=== PATIENT | female | born 1950 | race African-American/Black ===

== ENCOUNTER 2016-10-05 18:58 | Inpatient (IN) | payer OTHER ==
[2016-10-05 19:37] VITALS: BMI 32.5
[2016-10-05] MEDS ORDERED: SODIUM CHLORIDE 1,000 ML IV STA (19:55)
[2016-10-05] MEDS ORDERED: ONDANSETRON 4 MG/2 ML VIAL IVPUSH ONE (19:56)
[2016-10-05] MEDS ORDERED: FAMOTIDINE 20 MG/50 ML IVPB 50 ML IVPB ONE ×2 (19:56→20:23)
--- NOTE | 2016-10-05 19:59 | PDOC ---
History of Present Illness <Tristian Diaz - Last Filed: 10/05/16 20:28> - General History Source: Patient, Old Records - History of Present Illness Initial Comments: 10/05/16 20:27 The patient is a 66 year old female with past medical history of HTN s/p cardiac stents, HLD, COPD, GERD, colitis, hypothyroidism and borderline diabetes , who presents to the emergency department with belching, diarrhea, vomiting, and abdominal pain since wednesday. The patient states that she was cleaning the house when she began to feel nauseous and having episodes of vomiting and diarrhea. The patient reports that her vomiting resolved yesterday but she then began to experience right upper quadrant pain. The patient denies bloody stool and sick contacts. <Florian Muir - Last Filed: 10/06/16 00:00> - General Chief Complaint: Vomiting/Diarrhea Stated Complaint: PCP SENT/ADMIT/COLITIS Time Seen by Provider: 10/05/16 19:46 Past History - Past Medical History Anemia: Yes (ON B12 INJECTIONS) Asthma: Yes Cancer: No Cardiac Disorders: Yes (ANEURYSM) CVA: No COPD: Yes CHF: No Dementia: No Diabetes: Yes (borderline diabetic) GI Disorders: Yes (GERD,COLITIS) Disorders: No HTN: Yes Hypercholesterolemia: Yes Liver Disease: No Seizures: No Thyroid Disease: Yes (HYPOTHYROIDISM-HAD BEEN ON SYNTHROID, OFF "FOR A COUPLE OF YEARS") - Surgical History Abdominal Surgery: Yes (pancreatic biopsy 2011) Appendectomy: Yes (1984) Cardiac Surgery: Yes (2008) Cholecystectomy: No Lung Surgery: No Neurologic Surgery: No Orthopedic Surgery: Yes (left makoplasty knee replacement 2013."general foot surgery") - Family Disease History Family Disease History: Diabetes: Mother, Heart Disease: Father - Psycho/Social/Smoking Cessation Hx Anxiety: No Suicidal Ideation: No Smoking Status: No Smoking History: Never smoked Have you smoked in the past 12 months: No Number of Cigarettes Smoked Daily: 0 If you are a former smoker, when did you quit?: 2008 Information on smoking cessation initiated: No Hx Alcohol Use: No Drug/Substance Use Hx: No Substance Use Type: None Hx Substance Use Treatment: No <Tristian Diaz - Last Filed: 10/05/16 20:28> <Florian Muir - Last Filed: 10/06/16 00:00> - Past Medical History Allergies/Adverse Reactions: Allergies Allergy/AdvReac Type Severity Reaction Status Date / Time No Known Drug Allergies Allergy Verified 10/05/16 19:34 FRAGRANCES Allergy Severe RESPIRATORY Uncoded 10/05/16 19:34 DISTRESS Home Medications: Ambulatory Orders Famotidine [Pepcid] 40 mg PO BID 10/05/14 Paroxetine HCl 20 mg PO HS 10/05/14 Ranolazine [Ranexa] 500 mg PO BID 10/05/14 Rosuvastatin Calcium [Crestor] 5 mg PO HS 10/05/14 Tiotropium [place] [Spiriva] 1 inh PO DAILY PRN 10/05/14 Cyanocobalamin Vit B-12 Inj. [Vitamin B12 Injection -] 1,000 mcg IM WEEKLY 06/27 Diltiazem HCl [Diltiazem 24Hr Cd] 240 mg PO DAILY 06/27/15 Ergocalciferol (Vitamin D2) [Vitamin D2] 50,000 unit PO WEEKLY 06/27/15 Psyllium Husk/Calcium Carb [Metamucil Plus Calcium Capsule] 1 each PO DAILY Quetiapine Fumarate [Seroquel -] 25 mg PO HS 06/27/15 Multivitamins [Multivit ([facility] Formulary)] 1 tab PO DAILY tab 03/11/16 Aspirin [ASA -] 81 mg PO DAILY #0 tab.chew 07/01/16 Pantoprazole Sodium [Protonix -] 40 mg PO BIDAC #40 tablet.ec 07/03/16 Oxycodone HCl [Roxicodone] 15 mg PO QID PRN 10/05/16 Review of Systems - Review of Systems Able to Perform ROS?: Yes Constitutional: Yes: Symptoms Reported, See HPI ABD/GI: Yes: Symptoms Reported, See HPI, Diarrhea, Nausea, Vomiting, Abdominal cramping, Other <Florian Muir - Last Filed: 10/06/16 00:00> *Physical Exam - Vital Signs Last Vital Signs Temp Pulse Resp BP Pulse Ox 98.0 F 94 H 14 119/81 96 10/05/16 19:34 10/05/16 19:34 10/05/16 19:34 10/05/16 19:34 10/05/16 19:34 - Physical Exam General Appearance: Yes: Nourished, Appropriately Dressed, Mild Distress ( ANXIOUS) HEENT: positive: Normal ENT Inspection Neck: positive: Supple Respiratory/Chest: positive: Lungs Clear, Normal Breath Sounds. negative: Chest Tender, Respiratory Distress Cardiovascular: positive: Regular Rhythm, Regular Rate Gastrointestinal/Abdominal: positive: Normal Bowel Sounds, Tender (MILD TNDERNESS RT HEMIABDOMEN NO G/R), Soft Musculoskeletal: positive: Normal Inspection. negative: CVA Tenderness Extremity: positive: Normal Capillary Refill Integumentary: positive: Normal Color Neurologic: positive: Fully Oriented, Alert, Normal Mood/Affect, Normal Response , Motor Strength 5/5, Other (ANXIOUS) <Tristian Diaz - Last Filed: 10/05/16 20:28> - Vital Signs Last Vital Signs Temp Pulse Resp BP Pulse Ox 98.0 F 94 H 14 119/81 96 10/05/16 19:34 10/05/16 19:34 10/05/16 19:34 10/05/16 19:34 10/05/16 19:34 <Florian Muir - Last Filed: 10/06/16 00:00> ED Treatment Course - LABORATORY CBC & Chemistry Diagram: 10/05/16 20:20 10/05/16 20:20 <Florian Muir - Last Filed: 10/06/16 00:00> Progress Note - Progress Note Progress Note: GASTROENTERITIS WILL D/W PMD SINCE HX OF COLITIS AND REPORTS THAT HE WANTED PT ADMITTED <Tristian Diaz - Last Filed: 10/05/16 20:28> Medical Decision Making - Medical Decision Making 10/05/16 20:20 Dr. Brien Lua was called. Case discussed. Agreed to admit to Dr. Kirk Parekh. <Florian Muir - Last Filed: 10/06/16 00:00> *DC/Admit/Observation/Transfer - Discharge Dispostion Admit: Yes <Tristian Diaz - Last Filed: 10/05/16 20:28> - Attestations Scribe Attestion: 10/05/16 20:36 Documentation prepared by Florian Muir, acting as director of medical education for Tristian Diaz MD. <Florian Muir - Last Filed: 10/06/16 00:00> Diagnosis at time of Disposition: Vomiting and diarrhea, Dehydration - Discharge Dispostion Condition at time of disposition: Stable
[2016-10-05] MEDS ORDERED: ONDANSETRON 4 MG/2 ML VIAL ONE (20:22)
[2016-10-05 20:33] LABS: BASOPHIL 0.7 % (0-2.0); EOSINOPHIL 1.4 % (0-4.5); MCH 29.6 pg (25.7-33.7); MCHC 31.9 g/dl (32.0-36.0); MEAN CELL VOLUME 92.5 fl (80-96); MEAN PLT VOLUME 8.2 fl (7.5-11.1); NEUTROPHILS 49.3 % (42.8-82.8); PLATELET COUNT 249 K/MM3 (134-434); RDW 13.8 % (11.6-15.6); WHITE BLOOD COUNT 7.7 K/mm3 (4.0-10.0)
[2016-10-05 20:54] LABS: CALCIUM 9.5 mg/dL (8.5-10.1)
[2016-10-06] MEDS: DEXTROSE 5%-0.45% SALINE 1,000 ML IV SCH ×2 (02:02→21:49)
[2016-10-06 08:08] LABS: BASOPHIL 0.3 % (0-2.0); EOSINOPHIL 2.9 % (0-4.5); MCH 30.3 pg (25.7-33.7); MCHC 32.9 g/dl (32.0-36.0); MEAN PLT VOLUME 8.4 fl (7.5-11.1); NEUTROPHILS 44.1 % (42.8-82.8); PLATELET COUNT 206 K/MM3 (134-434); RDW 13.5 % (11.6-15.6); WHITE BLOOD COUNT 7.3 K/mm3 (4.0-10.0)
[2016-10-06 08:44] LABS: ALBUMIN 3.3 g/dl (3.4-5.0); ALK PHOS 59 U/L (45-117); AMYLASE 32 U/L (25-115); ANION GAP 7 (8-16); BILIRUBIN,TOTAL 0.5 mg/dL (0.2-1.0); CALCIUM 8.8 mg/dL (8.5-10.1); CO2 26 mmol/L (21-32); CREATININE 0.9 mg/dL (0.55-1.02); GLUCOSE,RANDOM 98 mg/dL (74-106); SGOT/AST 10 U/L (15-37); SGPT/ALT 20 U/L (12-78); THYROID STIMULATING HORMONE 0.43 uIU/ml (0.358-3.74); TOT PROT 6.1 g/dl (6.4-8.2)
[2016-10-06] MEDS ORDERED: PT OWN MED DRAWER 7, Y5N ONE (09:12)
[2016-10-06] MEDS: PANTOPRAZOLE 40 MG TABLET (FP) PO SCH (09:13)
[2016-10-06] MEDS: BUDESONIDE/FORMETEROL FUMARATE 160/4.5 mcg INHALER IH SCH ×3 (09:14→21:45)
[2016-10-06] MEDS: HEPARIN NA (PORCINE) 5,000 UNITS/ML 1ML VIAL SQ SCH ×2 (10:06→21:39)
--- NOTE | 2016-10-06 13:28 | PN ---
Progress Note (short form) - Note Progress Note: consult dictated
[2016-10-06 15:05] LABS: URINE APPEARANCE CLEAR; URINE BILIRUBIN NEGATIVE (NEGATIVE); URINE BLOOD NEGATIVE (NEGATIVE); URINE COLOR LTYELLOW; URINE GLUCOSE (UA) NEGATIVE (NEGATIVE); URINE KETONE NEGATIVE (NEGATIVE); URINE LEUK ESTERASE NEGATIVE (NEGATIVE); URINE NITRITE NEGATIVE (NEGATIVE); URINE PROTEIN NEGATIVE (NEGATIVE); URINE UROBILINOGEN NEGATIVE E.U./dl (0.2-1.0)
--- NOTE | 2016-10-06 16:21 | CONS ---
DATE OF CONSULTATION: 10/06/2016 REQUESTING PHYSICIAN: Brien Copeland M.D. HISTORY OF PRESENT ILLNESS: Patient is a 66-year-old female admitted through [facility] emergency room for evaluation of nausea, vomiting, and diarrhea. States that the symptoms started Wednesday when she was at home cleaning. She had no nausea and vomiting. She had no vomiting yesterday, and there has been no reported diarrhea since her admission. She does complain of right sided abdominal pain. She is known by my colleague, Dr. Amy Lamas, who had seen her during admission in June of 2016 and then for followup in July of 2016. During her June hospitalization, she underwent upper endoscopy with Dr. Lamas revealing cobblestoned appearing mucosa, and the stomach biopsies revealed only chronic gastritis. As you recall, she had had a colonoscopy performed by at [facility] in September of 2014, and apparently the study was incomplete, as he cannot pass through a narrow proximal transverse colon. Area was tattooed, and she had a CT scan, and the biopsies failed to reveal malignancy. She did have 3 polyps removed this past July. Dr. Lamas did want her to undergo a colonoscopy to exclude a progressively obstructing lesion in the proximal transverse colon due to an ischemic stricture and to more definitively exclude malignancy. It appears as though she was scheduled to have this performed this past August; however, the patient states she never had it done, does not appear she called the office to arrange for followup after this. She says the reason why she did not have it performed is because she tore her right shoulder. She did not require surgical correction for this muscle tear. 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 PAST SURGICAL HISTORY: Includes appendectomy, hysterectomy due to fibroids, 4 surgeries since 1984. Vocal cord polyps have been removed. Tonsillectomy. Sinus surgery x3. Carpal tunnel release on the right wrist. Left knee arthroscopy. Right index finger tumor removed, which was benign. Ganglion cyst removed from the right hand 4 to 5 times. Ganglion cyst removed from the right foot and hammertoe correction of the right and left feet. Bunionectomy. She had pins and screws placed in her right ankle, and a mass removed from her right ankle in July of 2015. FAMILY HISTORY: Father had history of lung cancer, 1 sibling with obesity, 1 sibling with coronary artery disease, paternal uncle with leukemia, and mother with upper respiratory complications. MEDICATION: Prior to admission included Crestor, Pepcid, Spiriva, Ranexa, paroxetine, vitamine B12 injections weekly, vitamin D2, diltiazem, Seroquel, Metamucil, vitamin, aspirin 81 mg once daily, Protonix 40 mg daily, and Roxicodone. SOCIAL HISTORY: She is [place] speaking. She is single. She is a social security assessor general office dispatcher. Former smoker, quit in 2009. She drinks wine nightly. No history of intravenous drug abuse or illicit drugs. ALLERGIES: No known drug allergies. She does have allergy to certain perfumes. REVIEW OF SYSTEMS: She denies any current chest pain, shortness of breath. Nausea and vomiting have resolved. There has been no rectal bleeding, no melena. PHYSICAL EXAMINATION: General: The patient is found lying in her bed, she appeared to be in no apparent distress. Vital signs: She is afebrile. Pulse of 86, blood pressure 111/70. HEENT: Sclerae are anicteric. Neck: Supple. Cardiovascular: Heart regular rate and rhythm with a 2/6 systolic murmur heard best at the left sternal border. Lungs: Clear to auscultation bilaterally. Abdomen: Nondistended. Normoactive bowel sounds. She had healed vertical right lower quadrant and Pfannenstiel incisions. She did have mild tenderness to palpation on the right side of her abdomen. No hepatosplenomegaly was appreciated. No guarding was present. No rebound tenderness. Extremities: No lower extremity edema. LABORATORY EVALUATION: White blood count 7.3, hemoglobin 10.7, hematocrit 32.4, platelets of 206. Sodium 145, potassium 3.8, chloride 112, bicarbonate 26, BUN 9, creatinine 0.9. AST 10, ALT 20, alkaline phosphatase 59, total bilirubin 0.5 with an albumin of 3.3. Amylase 32, lipase 127, TSH 0.43. RADIOLOGY REPORTS: There has been no abdominal imaging performed. IMPRESSION: A 66-year-old female with resolved nausea, vomiting, and diarrhea. She does also have right sided abdominal pain now, given her history of suspected ischemia colitis. I have ordered a CT scan of the abdomen and pelvis with oral and intravenous contrast for further evaluation. Keep the patient on a clear liquid diet for now. Monitor labs, and other recommendations will be made based on the patient's clinical course. I thank you for this consultative opportunity. JOSE RODRÍGUEZ DO CD/[id number]
--- NOTE | 2016-10-06 18:16 | HP ---
Admitting History and Physical - Primary Care Physician PCP: Kirk Parekh - Admission Chief Complaint: ABDOMINAL PAIN/NAUSEA AND VOMITING History of Present Illness: 66 Y/O FEMALE WITH CAD S/P STENTS, DM, HTN, HYPOTHYROID, COLITIS HERE WITH NAUSEA AND VOMITING AND POOR APPETITE WITH GENERALIZED WEAKNESS. History Source: Patient Limitations to Obtaining History: No Limitations - Past Medical History Cardiovascular: Yes: Aneurysm, CAD (S/P STENTING LAST CATH 11/10 [facility]), HTN, Hyperlipdemia Pulmonary: Yes: Asthma, COPD, Sleep Apnea Psych: Yes: Depression Musculoskeletal: Yes: Osteoarthritis - Past Surgical History Past Surgical History: Yes: Joint Replacement, Tonsillectomy - Smoking History Smoking history: Never smoked Have you smoked in the past 12 months: No Aproximately how many cigarettes per day: 0 If you are a former smoker, when did you quit?: 2008 - Alcohol/Substance Use Hx Alcohol Use: No - Social History ADL: Independent History of Recent Travel: No Home Medications - Allergies Allergies/Adverse Reactions: Allergies Allergy/AdvReac Type Severity Reaction Status Date / Time No Known Drug Allergies Allergy Verified 10/05/16 19:34 FRAGRANCES Allergy Severe RESPIRATORY Uncoded 10/05/16 19:34 DISTRESS - Home Medications Home Medications: Ambulatory Orders Famotidine [Pepcid] 40 mg PO BID 10/05/14 Paroxetine HCl 20 mg PO HS 10/05/14 Ranolazine [Ranexa] 500 mg PO BID 10/05/14 Rosuvastatin Calcium [Crestor] 5 mg PO HS 10/05/14 Tiotropium [place] [Spiriva] 1 inh PO DAILY PRN 10/05/14 Cyanocobalamin Vit B-12 Inj. [Vitamin B12 Injection -] 1,000 mcg IM WEEKLY 06/27 Diltiazem HCl [Diltiazem 24Hr Cd] 240 mg PO DAILY 06/27/15 Ergocalciferol (Vitamin D2) [Vitamin D2] 50,000 unit PO WEEKLY 06/27/15 Psyllium Husk/Calcium Carb [Metamucil Plus Calcium Capsule] 1 each PO DAILY Quetiapine Fumarate [Seroquel -] 25 mg PO HS 06/27/15 Multivitamins [Multivit ([facility] Formulary)] 1 tab PO DAILY tab 03/11/16 Aspirin [ASA -] 81 mg PO DAILY #0 tab.chew 07/01/16 Pantoprazole Sodium [Protonix -] 40 mg PO BIDAC #40 tablet.ec 07/03/16 Oxycodone HCl [Roxicodone] 15 mg PO QID PRN 10/05/16 Review of Systems - Review of Systems Constitutional: reports: Loss of Appetite, Weakness Eyes: reports: No Symptoms HENT: reports: No Symptoms Neck: reports: No Symptoms Cardiovascular: reports: No Symptoms Respiratory: reports: No Symptoms Gastrointestinal: reports: Nausea Genitourinary: reports: No Symptoms Musculoskeletal: reports: Muscle Weakness Integumentary: reports: No Symptoms Neurological: reports: No Symptoms Endocrine: reports: No Symptoms Hematology/Lymphatic: reports: No Symptoms Physical Examination Vital Signs: Vital Signs Temperature 98.5 F 10/06/16 15:19 Pulse Rate 81 10/06/16 15:19 Respiratory Rate 18 10/06/16 15:19 Blood Pressure 167/54 10/06/16 15:19 O2 Sat by Pulse Oximetry (%) 98 10/06/16 09:00 Constitutional: Yes: Moderate Distress Eyes: Yes: WNL HENT: Yes: WNL Neck: Yes: WNL Cardiovascular: Yes: WNL Respiratory: Yes: WNL Gastrointestinal: Yes: Tenderness, Epigastrium Renal/: Yes: WNL Musculoskeletal: Yes: Muscle Weakness Extremities: Yes: WNL Edema: Yes Edema: LLE: Trace, RLE: Trace Peripheral Pulses WNL: Yes Integumentary: Yes: WNL Wound/Incision: Yes: Clean/Dry Neurological: Yes: Weakness ...Motor Strength: LLE, RLE Psychiatric: Yes: Agitated Labs: CBC, BMP 10/06/16 06:45 10/06/16 06:45 Imaging - Results Cat Scan: Pending Problem List - Problems (1) Dehydration Code(s): E86.0 - DEHYDRATION (2) Vomiting and diarrhea Code(s): R11.10 - VOMITING, UNSPECIFIED R19.7 - DIARRHEA, UNSPECIFIED (3) DM II (diabetes mellitus, type II), controlled Code(s): E11.9 - TYPE 2 DIABETES MELLITUS WITHOUT COMPLICATIONS Qualifiers: Diabetes mellitus complication detail: with neuropathic arthropathy (4) Depression Code(s): F32.9 - MAJOR DEPRESSIVE DISORDER, SINGLE EPISODE, UNSPECIFIED Qualifiers: Depression Type: reactive depression Qualified Code(s): F32.9 - Major depressive disorder, single episode, unspecified (5) Dyspepsia Code(s): R10.13 - EPIGASTRIC PAIN (6) GERD (gastroesophageal reflux disease) Code(s): K21.9 - GASTRO-ESOPHAGEAL REFLUX DISEASE WITHOUT ESOPHAGITIS Qualifiers: Esophagitis presence: without esophagitis Qualified Code(s): K21.9 - Gastro-esophageal reflux disease without esophagitis (7) HLD (hyperlipidemia) Code(s): E78.5 - HYPERLIPIDEMIA, UNSPECIFIED (8) HTN (hypertension) Code(s): I10 - ESSENTIAL (PRIMARY) HYPERTENSION Qualifiers: Hypertension type: essential hypertension Qualified Code(s): I10 - Essential (primary) hypertension (9) Hypothyroidism Code(s): E03.9 - HYPOTHYROIDISM, UNSPECIFIED Qualifiers: Hypothyroidism type: unspecified Qualified Code(s): E03.9 - Hypothyroidism, unspecified (10) Osteoarthritis of left knee Code(s): M17.9 - OSTEOARTHRITIS OF KNEE, UNSPECIFIED Assessment/Plan CT ABDOMEN PENDING GI EVAL APPETITE POOR WILL KEEP PATIENT ON LIQUID IV ZOFRAN IVF
[2016-10-06] MEDS ORDERED: QUEtiapine FUMARATE 25 MG TABLET (FP) PO SCH (22:00)
[2016-10-07 06:39] VITALS: BP 97/71; PULSE 73; TEMP 98.2
--- NOTE | 2016-10-07 08:47 | DS ---
Physical Examination Vital Signs: Vital Signs Temperature 98.2 F 10/07/16 06:37 Pulse Rate 73 10/07/16 06:37 Respiratory Rate 16 10/07/16 06:37 Blood Pressure 97/71 10/07/16 06:37 O2 Sat by Pulse Oximetry (%) 98 10/06/16 21:00 Findings/Remarks: IN BED FEELING BETTER, TOLERATED LIQUID DIET Constitutional: Yes: No Distress Eyes: Yes: WNL HENT: Yes: WNL Neck: Yes: WNL Cardiovascular: Yes: WNL Respiratory: Yes: WNL Gastrointestinal: Yes: Tenderness (MILD GENERALIZED TENDERNESS) Renal/: Yes: WNL Musculoskeletal: Yes: Muscle Weakness Extremities: Yes: WNL Edema: No Peripheral Pulses WNL: Yes Integumentary: Yes: WNL Wound/Incision: Yes: Clean/Dry Neurological: Yes: WNL ...Motor Strength: WNL Psychiatric: Yes: Agitated, Other (ANXIETY) Labs: CBC, BMP 10/06/16 06:45 10/06/16 06:45 Discharge Summary Reason For Visit: VOMITING AND DIARRHEA Current Active Problems Dehydration (Acute) Vomiting and diarrhea (Acute) Procedures: Principal: CT SCAN ABDOMEN Other Procedures: LABS/CX,IVF Hospital Course: ADMITTED FOR ACUTE ABDOMINAL PAIN, CT NORMAL LIKELY CASE OF COLITIS WITH IBS, F/ U OUTPATIENT Condition: Improved - Instructions Diet, Activity, Other Instructions: ADA/SOFT Disposition: [facility] - Home Medications Comprehensive Discharge Medication List: Ambulatory Orders Famotidine [Pepcid] 40 mg PO BID 10/05/14 Paroxetine HCl 20 mg PO HS 10/05/14 Ranolazine [Ranexa] 500 mg PO BID 10/05/14 Rosuvastatin Calcium [Crestor] 5 mg PO HS 10/05/14 Tiotropium [place] [Spiriva] 1 inh PO DAILY PRN 10/05/14 Cyanocobalamin Vit B-12 Inj. [Vitamin B12 Injection -] 1,000 mcg IM WEEKLY 06/27 Diltiazem HCl [Diltiazem 24Hr Cd] 240 mg PO DAILY 06/27/15 Ergocalciferol (Vitamin D2) [Vitamin D2] 50,000 unit PO WEEKLY 06/27/15 Psyllium Husk/Calcium Carb [Metamucil Plus Calcium Capsule] 1 each PO DAILY Quetiapine Fumarate [Seroquel -] 25 mg PO HS 06/27/15 Multivitamins [Multivit ([facility] Formulary)] 1 tab PO DAILY tab 03/11/16 Aspirin [ASA -] 81 mg PO DAILY #0 tab.chew 07/01/16 Pantoprazole Sodium [Protonix -] 40 mg PO BIDAC #40 tablet.ec 07/03/16 Oxycodone HCl [Roxicodone] 15 mg PO QID PRN 10/05/16 SEE PMD IN 1 WEEK
[2016-10-07] MEDS: DEXTROSE 5%-0.45% SALINE 1,000 ML IV SCH (10:34)
[2016-10-07] MEDS: BUDESONIDE/FORMETEROL FUMARATE 160/4.5 mcg INHALER IH SCH (11:55)
[2016-10-07] MEDS: PANTOPRAZOLE 40 MG TABLET (FP) PO SCH (12:08)
[2016-10-07] MEDS: HEPARIN NA (PORCINE) 5,000 UNITS/ML 1ML VIAL SQ SCH (12:08)
[2016-10-07] MEDS ORDERED: ALPRAZolam 2 MG TABLET PO ONE (12:45)
[2016-10-07] MEDS ORDERED: ASPIRIN 81 MG CHEWABLE TABLETS PO SCH (12:45)
[2016-10-07] MEDS ORDERED: RANOLAZINE E.R. 500 MG TABLET (FP) PO SCH (12:45)
--- NOTE | 2016-10-11 10:29 | EKG ---
Test Reason : Blood Pressure : / mmHG Vent. Rate : 084 BPM Atrial Rate : 084 BPM P-R Int : 170 ms QRS Dur : 076 ms QT Int : 422 ms P-R-T Axes : 053 -27 020 degrees QTc Int : 498 ms NORMAL SINUS RHYTHM NONSPECIFIC ST ABNORMALITY ABNORMAL ECG WHEN COMPARED WITH ECG OF 01-JUL-2016 10:30, NO SIGNIFICANT CHANGE WAS FOUND Confirmed by VENANCIO MANN MD ([id number]) on 10/11/2016 10:28:59 AM Referred By: Confirmed By:VENANCIO MANN MD
== END 2016-10-07 15:54 | disposition home or self-care (01) | DRG 392 ==
LOC: JER 18:58 → JERBED 20:29 → J8W 22:11
PROVIDERS: ADMIT Family Medicine; ATTEND Family Medicine
DX: K52.9 Noninfective gastroenteritis and colitis, unspecified (principal); E86.0 Dehydration; I25.10 Atherosclerotic heart disease of native coronary artery without angina pectoris; I10 Essential (primary) hypertension; E03.9 Hypothyroidism, unspecified; Z95.5 Presence of coronary angioplasty implant and graft; J44.9 Chronic obstructive pulmonary disease, unspecified; J45.909 Unspecified asthma, uncomplicated; G47.39 Other sleep apnea; E11.9 Type 2 diabetes mellitus without complications; R10.13 Epigastric pain; K21.9 Gastro-esophageal reflux disease without esophagitis; M17.9 Osteoarthritis of knee, unspecified; F41.8 Other specified anxiety disorders
CPT/HCPCS: 36415; 74177-TC; 76700-TC; 80048; 80053; 81003; 82150; 83690; 84443; 85025; 85651; 86140; 93005; 93010; 99282-25; J1644; Q9967

== ENCOUNTER 2016-10-23 11:08 | Day surgery (SDC) | payer OTHER ==
[2016-10-22 15:09] VITALS: BMI 32.5
[2016-10-23 14:19] VITALS: TEMP 98.8
[2016-10-23 15:40] VITALS: BP 107/60; PULSE 82
--- NOTE | 2016-10-27 11:24 | PATH ---
Surgical Pathology Report Patient Name: ROSA FRANCO [facility]. Rec. #: [id number] /Age/Gender: 1950 (Age: 66) / F Account: [id number] Location: [facility]-ENDOSCOPY Taken: 10/23/2016 Received: 10/26/2016 Reported: 10/27/2016 Physicians: Amy Lamas M.D. Specimen(s) Received A: BX ILEUM B: BX CECUM C: BX PROXIMAL TRANSVERSE NARROWING Clinical History History of polyps Normal cancer screening Final Diagnosis A. ILEUM, BIOPSY: SMALL INTESTINAL MUCOSA WITH MILD HYPERPLASIA OF MUCOSA ASSOCIATED LYMPHOID TISSUE. NO ACTIVE INFLAMMATION, GRANULOMATA, OR DYSPLASIA IDENTIFIED. B. COLON, CECUM, BIOPSY: COLONIC MUCOSA WITH NO PATHOLOGIC CHANGES. NO ACTIVE COLITIS, ARCHITECTURAL DISTORTION, GRANULOMATA, OR DYSPLASIA IDENTIFIED. NO MICROSCOPIC COLITIS IDENTIFIED (NO LYMPHOCYTIC OR COLLAGENOUS COLITIS IDENTIFIED). C. COLON, PROXIMAL TRANSVERSE, BIOPSY: COLONIC MUCOSA WITH NO PATHOLOGIC CHANGES. NO ACTIVE COLITIS, ARCHITECTURAL DISTORTION, GRANULOMATA, OR DYSPLASIA IDENTIFIED. NO MICROSCOPIC COLITIS IDENTIFIED (NO LYMPHOCYTIC OR COLLAGENOUS COLITIS IDENTIFIED). Comment: The findings in Specimen A may indicate some form of antigenic stimulation to the GI tract. Electronically Signed Issac Alicea M.D. Gross Description A. Received in formalin, labeled "biopsy ileum" are 4 dave, irregular portions of soft tissue ranging from 0.2-0.3 cm. in greatest dimension. The specimens are submitted in toto in one cassette. B. Received in formalin, labeled "biopsy cecum" is a dave, irregular portion of soft tissue measuring 0.3 cm. in greatest dimension. The specimen is submitted in toto in one cassette. C. Received in formalin, labeled "biopsy proximal transverse narrowing" are 2 dave, irregular portions of soft tissue measuring 0.3 and 0.4 cm. in greatest dimension. The specimens are submitted in toto in one cassette. 10/26/201610/26/2016
== END 2016-10-23 15:43 | disposition home or self-care (01) ==
LOC: JASU-ENDO 11:08
PROVIDERS: ATTEND Internal Medicine Gastroenterology
PROC: 0DBE8ZX Excision of Large Intestine, Via Natural or Artificial Opening Endoscopic, Diagnostic (ICD-10-PCS; 2016-10-23)
PROC: 0DBB8ZX Excision of Ileum, Via Natural or Artificial Opening Endoscopic, Diagnostic (ICD-10-PCS; principal; 2016-10-23 12:00)
DX: Z12.11 Encounter for screening for malignant neoplasm of colon (principal); Z86.010 Personal history of colon polyps
CPT/HCPCS: 88305-TC

== ENCOUNTER 2017-05-26 10:32 | Observation (INO) | payer OTHER ==
[2017-05-26 10:36] VITALS: BMI 32.5
--- NOTE | 2017-05-26 10:50 | PDOC ---
History of Present Illness - General History Source: Patient Exam Limitations: No Limitations - History of Present Illness Initial Comments: 05/26/17 12:00 The patient is a 66 year old female with a significant PMH of HTN s/p cardiac stents (2008), hyperlipidemia, COPD, asthma, aortic aneurysm, GERD, colitis, and hypothyroidism who presents to the emergency department with tingling on her left side beginning at approximately 3AM last night.The patient describes the tingling as beginning in between her left neck and shoulder, which has since radiated down to her LLE upon presentation. The patient notes chills and a headache, 7/10 in severity. She also reports sternal non radiating chest pain and shortness of breath that began shortly before arriving to the ED. Dr. Copeland [id number] the ED earlier to inform us of her arrival. The patient denies dizziness. Denies fever, nausea, vomit, diarrhea and constipation. Denies dysuria, frequency, urgency and hematuria. Allergies: NKDA Past surgical history: Cardiac stent placement (2008). Pancreatic biopsy (2011) . Appendectomy (1984). Left knee replacement (2012). Social history: Former smoker. No reported alcohol or drug use. PCP: Dr. Copeland Cardiology: Dr. Chappell <Tyler Olmstead - Last Filed: 05/26/17 14:45> <Julian Olosn - Last Filed: 05/26/17 15:55> - General Chief Complaint: CVA/TIA Stated Complaint: SOB Time Seen by Provider: 05/26/17 10:42 Past History <Tyler Olmstead - Last Filed: 05/26/17 14:45> - Past Medical History Anemia: Yes (ON B12 INJECTIONS) Asthma: Yes Cardiac Disorders: Yes (ASHD-CORONARY STENTING 2008) COPD: Yes Diabetes: Yes (borderline diabetic) GI Disorders: Yes (ACID REFLUX;ISCHEMIC COLITIS) HTN: Yes Hypercholesterolemia: Yes Liver Disease: Yes (FATTY LIVER) Thyroid Disease: Yes (HYPOTHYROIDISM-HAD BEEN ON SYNTHROID, OFF "FOR A COUPLE OF YEARS") - Surgical History Abdominal Surgery: Yes (pancreatic biopsy 2011) Appendectomy: Yes Cardiac Surgery: Yes (2009 STENT) Orthopedic Surgery: Yes (LEFT KNEE ARTHROSCOPY; RIGHT MASS AND PINS AND SCREWS FROM RIGHT ANKLE) - Family Disease History Family Disease History: Diabetes: Mother, Heart Disease: Father - Suicide/Smoking/Psychosocial Hx Smoking Status: No Smoking History: Former smoker Have you smoked in the past 12 months: No Number of Cigarettes Smoked Daily: 0 If you are a former smoker, when did you quit?: 17 YRS Information on smoking cessation initiated: No Hx Alcohol Use: No Drug/Substance Use Hx: No Substance Use Type: None Hx Substance Use Treatment: No <Nassef,Yomna - Last Filed: 05/26/17 15:55> - Past Medical History Allergies/Adverse Reactions: Allergies Allergy/AdvReac Type Severity Reaction Status Date / Time No Known Drug Allergies Allergy Verified 05/26/17 10:36 FRAGRANCES Allergy Severe RESPIRATORY Uncoded 05/26/17 10:36 DISTRESS Home Medications: Ambulatory Orders Famotidine [Pepcid] 20 mg PO BID 10/05/14 Rosuvastatin Calcium [Crestor] 5 mg PO HS 10/05/14 Cyanocobalamin Vit B-12 Inj. [Vitamin B12 Injection -] 1,000 mcg IM WEEKLY 06/27 Diltiazem HCl [Diltiazem 24Hr Cd] 240 mg PO DAILY 06/27/15 Quetiapine Fumarate [Seroquel -] 25 mg PO HS 06/27/15 Aspirin [ASA -] 81 mg PO DAILY #0 tab.chew 07/01/16 Alprazolam [Xanax Xr] 1 mg PO PRN 10/22/16 Metaxalone [Skelaxin] 400 mg PO BID 10/22/16 Primidone 25 mg PO TID 10/22/16 Budesonide/Formeterol Fumarate [SYMBICORT 160/4.5mcg -] 1 inh IH DAILY 05/26/17 Diphenhydramine HCl [Benadryl -] 25 mg PO Q6H 05/26/17 Ergocalciferol [Vitamin D2] 50,000 unit PO WEEKLY 05/26/17 Loratadine [Claritin] 10 mg PO DAILY 05/26/17 Oxycodone HCl 15 mg PO BID 05/26/17 Polyethylene Glycol 3350 [Miralax (For Daily Use) -] 17 gm PO DAILY 05/26/17 Ranolazine [Ranexa] 500 mg PO BID 05/26/17 Tiotropium [place] [Spiriva] 1 inh IH DAILY 05/26/17 Review of Systems - Review of Systems Able to Perform ROS?: Yes Comments:: 05/26/17 12:00 GENERAL/CONSTITUTIONAL: (+) Chills. (+) numbness in left arm. No fever. HEAD, EYES, EARS, NOSE AND THROAT: No change in vision. No ear pain or discharge. No sore throat. CARDIOVASCULAR:(+) Chest pain. (+) Shortness of breath. RESPIRATORY: No cough, wheezing, or hemoptysis. GASTROINTESTINAL: No nausea, vomiting, diarrhea or constipation. GENITOURINARY: No dysuria, frequency, or change in urination. MUSCULOSKELETAL: No joint or muscle swelling or pain. No neck or back pain. SKIN: No rash NEUROLOGIC: (+) Left side tingling. No vertigo, loss of consciousness, or change in strength. ENDOCRINE: No increased thirst. No abnormal weight change. HEMATOLOGIC/LYMPHATIC: No anemia, easy bleeding, or history of blood clots. ALLERGIC/IMMUNOLOGIC: No hives or skin allergy. <Tyler Olmstead - Last Filed: 05/26/17 14:45> *Physical Exam - Vital Signs Last Vital Signs Temp Pulse Resp BP Pulse Ox 97.6 F 101 H 20 141/68 99 05/26/17 10:32 05/26/17 10:32 05/26/17 10:32 05/26/17 10:32 05/26/17 11:28 - Physical Exam Comments: GENERAL: Awake, alert, and fully oriented, in no acute distress HEAD: No signs of trauma EYES: PERRLA, EOMI, sclera anicteric, conjunctiva clear ENT: Auricles normal inspection, hearing grossly normal, nares patent, oropharynx clear without exudates. Moist mucosa NECK: Normal ROM, supple, no lymphadenopathy, JVD, or masses LUNGS: Breath sounds equal, clear to auscultation bilaterally. No wheezes, and no crackles HEART: Regular rate and rhythm, normal S1 and S2, no murmurs, rubs or gallops ABDOMEN: Soft, nontender, normoactive bowel sounds. No guarding, no rebound. No masses EXTREMITIES: Normal range of motion, no edema. No clubbing or cyanosis. No cords, erythema, or tenderness NEUROLOGICAL: Normal speech, cranial nerves intact, negative pronator drift, 5/ 5 strength in all 4 extremities,decreased sensation to light touch in the LUE and LLE, normal cerebellar exam, normal gait, normal reflexes and tone SKIN: Warm, Dry, normal turgor, no rashes or lesions noted. <IshanTyler - Last Filed: 05/26/17 14:45> - Vital Signs Last Vital Signs Temp Pulse Resp BP Pulse Ox 97.6 F 101 H 20 141/68 99 05/26/17 10:32 05/26/17 10:32 05/26/17 10:32 05/26/17 10:32 05/26/17 10:32 <Julian Olson - Last Filed: 05/26/17 15:55> ED Treatment Course - LABORATORY CBC & Chemistry Diagram: 05/26/17 11:02 05/26/17 11:02 - ADDITIONAL ORDERS Additional order review: Laboratory Results 05/26/17 11:02 Sodium 144 Potassium 3.8 D Chloride 110 H Carbon Dioxide 24 Anion Gap 10 BUN 19 H Creatinine 0.9 Creat Clearance w eGFR > 60 Random Glucose 109 H D Calcium 9.1 Total Bilirubin 0.4 AST 18 ALT 26 Alkaline Phosphatase 86 Creatine Kinase 121 Troponin I < 0.02 Total Protein 7.1 Albumin 4.1 Triglycerides 111 D Cholesterol 172 Total LDL Cholesterol 81 HDL Cholesterol 77 H D 05/26/17 11:02 RBC 4.13 MCV 91.5 MCHC 32.1 RDW 15.1 MPV 8.8 Neutrophils % 60.2 D Lymphocytes % 27.9 D Monocytes % 7.8 Eosinophils % 3.6 Basophils % 0.5 - RADIOLOGY Radiograph Interpretation: 05/26/17 14:24 Exam: Chest XR Interpreted by Dr. Talavera Impression: No acute pathology or significant change since 06/28/2016. Exam: Head CT Interpreted by Dr. Talavera Impression: No evidence of acute intracranial pathology. Exam: Aorta/Renal US Interpreted by Dr. Talavera Impression: No evidence of AAA - Medications Given in the ED: ED Medications Discontinued Medications Generic Name Dose Route Start Last Admin Trade Name Freq PRN Reason Stop Dose Admin Albuterol/Ipratropium 1 amp 05/26/17 10:52 05/26/17 11:25 Duoneb - NEB 05/26/17 10:53 1 amp ONCE ONE Administration Methylprednisolone Sodium Succinate 125 mg 05/26/17 10:53 05/26/17 11:25 Solu-Medrol - IVPB 05/26/17 10:54 125 mg ONCE ONE Administration - Consult/PCP Time Called: 14:30 Case discussed with personal care physician: Brien Copeland - Additional Consults Time Called: 14:35 Consult/PCP: Kirk Parekh <Tyler Olmstead - Last Filed: 05/26/17 14:45> - LABORATORY CBC & Chemistry Diagram: 05/26/17 11:02 05/26/17 11:02 <Julian Olson - Last Filed: 05/26/17 15:55> Medical Decision Making - Medical Decision Making 05/26/17 11:43 66-year-old female with multiple medical problems including [place] presents with left sided tingling since 3 AM in the morning. Patient is out of the TPA window. In addition she reports chest pain and shortness of breath and feels as though her COPD is acting up. Vitals are remarkable for mild tachycardia to 101 but otherwise unremarkable. Oxygen saturation is 100% on room air. Exam is notable for decreased sensation to light touch in the left upper and left lower extremity. Presentation is concerning for possible CVA versus TIA. Etiology of chest pain and shortness of breath is unclear however COPD versus ACS is on the differential. Aortic dissection is a consideration given the patient's history of a AAA however pulses are equal in the upper and lower extremities. Blood pressures equal in both arms as well. Patient's pain is also not characteristic of a dissection presentation however will obtain a chest x-ray to evaluate for a widened mediastinum and other etiologies of chest pain. Will also evaluate her AAA with an abdominal ultrasound. -CTH -labs -UA -CXR -US -duonebs and steroids -call Dr. Tse -admit 05/26/17 14:35 Workup including CTH, CXR, abdominal US, labs, UA, negative. L sided tingling has resolved, may be related to CP. I spoke with Dr. Tse who recommends we admit given high risk CP, Dr. Parekh admits for Dr. Tse. Call placed to Dr. Parekh, awaiting call back. 05/26/17 15:04 Spoke with JHOAN Gallgeos. Will admit patient to Dr. Parekh. I have also consulted Dr. Huitron for evaluation, awaiting a call back. 05/26/17 15:[address] Huitron, who recommends lovenox given high risk CP. Lovenox ordered. Case discussed in detail with JHOAN Gallegos including history, physical exam and ancillary studies. JHOAN Gallegos/Dr. Parekh have assumed care for the patient, will follow all pending diagnostics and will complete the evaluation and treatment. <Julian Olson - Last Filed: 05/26/17 15:55> *DC/Admit/Observation/Transfer - Attestations Scribe Attestion: 05/26/17 12:01 Documentation prepared by Tyler Olmstead, acting as medical supervisor for Julian Olson MD. <Tyler Olmstead - Last Filed: 05/26/17 14:45> - Discharge Dispostion Admit: Yes - Attestations Physician Attestion: 05/26/17 15:05 I, Dr. Julian Olson MD, attest that this document has been prepared under my direction and personally reviewed by me in its entirety. I further attest, that it accurately reflects all work, treatment, procedures and medical decision -making performed by me. <Julian Olson - Last Filed: 05/26/17 15:55> Diagnosis at time of Disposition: Chest pain at rest - Discharge Dispostion Condition at time of disposition: Stable - Referrals
[2017-05-26] MEDS ORDERED: ALBUTEROL SO4 2.5/IPRATROPIUM 0.5 INH SOL 3 ML VIAL.NEB. NEB ONE ×2 (10:52→11:13)
[2017-05-26] MEDS ORDERED: methylPREDNISolone NA SUCC 125 MG/2 ML VIAL IVPB ONE (10:53)
[2017-05-26] MEDS ORDERED: SODIUM CHLORIDE 1,000 ML IV SCH (11:00)
[2017-05-26] MEDS ORDERED: methylPREDNISolone NA SUCC 125 MG/2 ML VIAL ONE (11:13)
[2017-05-26 11:18] LABS: BASOPHIL 0.5 % (0-2.0); EOSINOPHIL 3.6 % (0-4.5); MCH 29.4 pg (25.7-33.7); MCHC 32.1 g/dl (32.0-36.0); MEAN CELL VOLUME 91.5 fl (80-96); MEAN PLT VOLUME 8.8 fl (7.5-11.1); NEUTROPHILS 60.2 % (42.8-82.8); PLATELET COUNT 207 K/MM3 (134-434); RDW 15.1 % (11.6-15.6); WHITE BLOOD COUNT 5.9 K/mm3 (4.0-10.0)
[2017-05-26 11:29] LABS: ALBUMIN 4.1 g/dl (3.4-5.0); ANION GAP 10 (8-16); BILIRUBIN,TOTAL 0.4 mg/dL (0.2-1.0); CALCIUM 9.1 mg/dL (8.5-10.1); CHOLESTEROL 172 mg/dL (50-200); CO2 24 mmol/L (21-32); CREATININE 0.9 mg/dL (0.55-1.02); GLUCOSE,RANDOM 109 mg/dL (74-106); SGOT/AST 18 U/L (15-37); SGPT/ALT 26 U/L (12-78); TOT PROT 7.1 g/dl (6.4-8.2)
[2017-05-26 11:30] LABS: ALK PHOS 86 U/L (45-117); CPK 121 IU/L (26-192); INR 0.97 (0.82-1.09); PROTHROMBIN TIME (PATIENT) 10.7 SEC (9.98-11.88); TROPONIN I < 0.02 ng/ml (0.00-0.05)
[2017-05-26 13:55] LABS: URINE APPEARANCE CLEAR; URINE BILIRUBIN NEGATIVE (NEGATIVE); URINE BLOOD NEGATIVE (NEGATIVE); URINE COLOR LTYELLOW; URINE GLUCOSE (UA) NEGATIVE (NEGATIVE); URINE KETONE NEGATIVE (NEGATIVE); URINE LEUK ESTERASE NEGATIVE (NEGATIVE); URINE NITRITE NEGATIVE (NEGATIVE); URINE PROTEIN NEGATIVE (NEGATIVE); URINE UROBILINOGEN NEGATIVE mg/dL (0.2-1.0)
[2017-05-26] MEDS ORDERED: ACETAMINOPHEN INJECTION 100 ML IVPB ONE (14:19)
[2017-05-26] MEDS ORDERED: ASPIRIN 325 MG TABLET PO ONE (14:31)
[2017-05-26] MEDS ORDERED: ACETAMINOPHEN 325 MG TABLET (FP) ONE (14:36)
[2017-05-26] MEDS ORDERED: FAMOTIDINE 20 MG/50 ML IVPB 50 ML IVPB ONE ×4 (14:40→19:51)
[2017-05-26] MEDS ORDERED: ENOXAPARIN NA (PORCINE) 80 MG/0.8 ML DISP.SYRIN SQ SCH (15:15)
[2017-05-26] MEDS ORDERED: morphine CARPU-JECT 2 MG/1 ML DISP.SYRIN IVPUSH ONE (15:42)
[2017-05-26] MEDS ORDERED: ENOXAPARIN NA (PORCINE) 100 MG/1 ML DISP.SYRIN SQ ONE (15:45)
--- NOTE | 2017-05-26 15:46 | HP ---
Admitting History and Physical - Primary Care Physician PCP: Brien Copeland - Admission Chief Complaint: Chest pain, SOB History of Present Illness: Ms. Mclain is a 66 year old female that came in to [facility] ER for chest pain, SOB , numbness and tingling of left side of the body, upper and lower extremity which start last midnight. She took her cardizem, ranexa aspirin and pepcid 20 mg as prescribed, which did not resolve her symptoms. Upon evaluation in the ER , her labs, head CT, U/S aorta and CXR were insignificant. She had mild EKG changes with ST depression. Patient also has significant PMH of HTN s/p cardiac stents (2008), hyperlipidemia, COPD, asthma, aortic aneurysm, GERD, colitis, and hypothyroidism. Upon interview patient still complains of SOB and moderate-severe chest pain. She has recieved aspirin 325 mg and famotidine. PCP: Dinorah Tesfaye Cardiology: Silke. As per instructions from Dr Edouard to ER attending, Lovenox is ordered. History Source: Patient, Family Member (terell) - Past Medical History Cardiovascular: Yes: Aneurysm, CAD (S/P STENTING LAST CATH 11/10 [facility]), HTN, Hyperlipdemia Pulmonary: Yes: Asthma, COPD, Sleep Apnea Psych: Yes: Depression Musculoskeletal: Yes: Osteoarthritis - Past Surgical History Past Surgical History: Yes: Joint Replacement, Tonsillectomy - Smoking History Smoking history: Former smoker Have you smoked in the past 12 months: No Aproximately how many cigarettes per day: 0 If you are a former smoker, when did you quit?: 17 YRS - Alcohol/Substance Use Hx Alcohol Use: No - Social History ADL: Independent History of Recent Travel: No Home Medications - Allergies Allergies/Adverse Reactions: Allergies Allergy/AdvReac Type Severity Reaction Status Date / Time No Known Drug Allergies Allergy Verified 05/26/17 10:36 FRAGRANCES Allergy Severe RESPIRATORY Uncoded 05/26/17 10:36 DISTRESS - Home Medications Home Medications: Ambulatory Orders Famotidine [Pepcid] 20 mg PO BID 10/05/14 Rosuvastatin Calcium [Crestor] 5 mg PO HS 10/05/14 Cyanocobalamin Vit B-12 Inj. [Vitamin B12 Injection -] 1,000 mcg IM WEEKLY 06/27 Diltiazem HCl [Diltiazem 24Hr Cd] 240 mg PO DAILY 06/27/15 Quetiapine Fumarate [Seroquel -] 25 mg PO HS 06/27/15 Aspirin [ASA -] 81 mg PO DAILY #0 tab.chew 07/01/16 Alprazolam [Xanax Xr] 1 mg PO PRN 10/22/16 Metaxalone [Skelaxin] 400 mg PO BID 10/22/16 Primidone 25 mg PO TID 10/22/16 Budesonide/Formeterol Fumarate [SYMBICORT 160/4.5mcg -] 1 inh IH DAILY 05/26/17 Diphenhydramine HCl [Benadryl -] 25 mg PO Q6H 05/26/17 Ergocalciferol [Vitamin D2] 50,000 unit PO WEEKLY 05/26/17 Loratadine [Claritin] 10 mg PO DAILY 05/26/17 Oxycodone HCl 15 mg PO BID 05/26/17 Polyethylene Glycol 3350 [Miralax (For Daily Use) -] 17 gm PO DAILY 05/26/17 Ranolazine [Ranexa] 500 mg PO BID 05/26/17 Tiotropium [place] [Spiriva] 1 inh IH DAILY 05/26/17 Review of Systems - Review of Systems Constitutional: reports: No Symptoms Eyes: reports: No Symptoms HENT: reports: No Symptoms Neck: reports: No Symptoms Cardiovascular: reports: Chest Pain, Shortness of Breath Respiratory: reports: SOB Genitourinary: reports: No Symptoms Breasts: reports: No Symptoms Reported Musculoskeletal: reports: No Symptoms Integumentary: reports: No Symptoms Neurological: reports: Numbness (Left upper and lower extremity) Endocrine: reports: No Symptoms Hematology/Lymphatic: reports: No Symptoms Psychiatric: reports: No Symptoms Pain Intensity: 8 Physical Examination Vital Signs: Vital Signs Temperature 97.6 F 05/26/17 10:32 Pulse Rate 89 05/26/17 14:08 Respiratory Rate 19 05/26/17 14:08 Blood Pressure 112/78 05/26/17 14:08 O2 Sat by Pulse Oximetry (%) 100 05/26/17 14:08 Constitutional: Yes: Well Nourished, Anxious Cardiovascular: Yes: Regular Rate and Rhythm Neurological: Yes: Alert, Oriented Psychiatric: Yes: Alert, Oriented Problem List - Problems (1) CAD (coronary artery disease) Code(s): I25.10 - ATHSCL HEART DISEASE OF [place] CORONARY ARTERY W/O ANG PCTRS Qualifiers: Coronary Disease-Associated Artery/Lesion type: [place] artery [place] vs. transplanted heart: [place] heart Associated angina: with stable angina Qualified Code(s): I25.119 - Atherosclerotic heart disease of [place] coronary artery with unspecified angina pectoris (2) Chest pain Assessment/Plan: -repeat EKG shows ST depression remains -repeat troponin -Morphine 2 mg x 1 -Nitro SL 0.4 mg once and prn -Acetaminophen 1000 mg IVP Q6HPRN for headaches -CTA state to r/o aortic dissection Code(s): R07.9 - CHEST PAIN, UNSPECIFIED Qualifiers: Chest pain type: other chest pain Qualified Code(s): R07.89 - Other chest pain; R07.8 - Other chest pain (3) DM II (diabetes mellitus, type II), controlled Assessment/Plan: -Check A1c Code(s): E11.9 - TYPE 2 DIABETES MELLITUS WITHOUT COMPLICATIONS Qualifiers: Diabetes mellitus complication detail: with neuropathic arthropathy (4) Dyspepsia Assessment/Plan: -received famotidine ivpb Code(s): R10.13 - EPIGASTRIC PAIN (5) HTN (hypertension) Code(s): I10 - ESSENTIAL (PRIMARY) HYPERTENSION Qualifiers: Hypertension type: essential hypertension Qualified Code(s): I10 - Essential (primary) hypertension (6) Unstable angina Assessment/Plan: -repeat EKG shows ST depression remains -repeat troponin -Morphine 2 mg x 1 -Nitro SL 0.4 mg once and prn -Acetaminophen 1000 mg IVP Q6HPRN for headaches Code(s): I20.0 - UNSTABLE ANGINA Assessment/Plan She may need Cardiac cath. Would go to [facility] if needed. Dr Rosa notified of patient's current status, he would evaluate the patient.
[2017-05-26] MEDS ORDERED: NITROGLYCERIN SUBLINGUAL 1/150 0.4 MG TAB SL ONE (15:54)
[2017-05-26] MEDS ORDERED: NITROGLYCERIN SUBLINGUAL 1/150 0.4 MG TAB SL PRN (15:56)
[2017-05-26] MEDS ORDERED: ACETAMINOPHEN 1000 MG/100 ML VIAL (NON FORMULARY) IVPB PRN (16:16)
--- NOTE | 2017-05-26 16:42 | CON.CARD ---
Cardiology Consult (text) - Consultation Consultation Note: Selected Entries 06/22/14 05/26/17 05/26/17 14:25 10:32 11:28 Pain Intensity 3 Temperature 97.6 F Pulse Rate [ Left Radial] Blood Pressure 141/68 O2 Sat by Pulse 99 99 Oximetry (%) Weight 190 lb 05/26/17 14:08 Pain Intensity Temperature Pulse Rate [ 89 Left Radial] Blood Pressure O2 Sat by Pulse 100 Oximetry (%) Weight Laboratory Tests 05/26/17 05/26/17 05/26/17 11:02 11:02 11:02 WBC 5.9 Hct 37.8 Plt Count 207 INR 0.97 Sodium 144 Potassium 3.8 D Creatinine 0.9 AST 18 ALT 26 Creatine Kinase 121 Troponin I < 0.02 66F office patient with HTN, chronic diastolic CHF, CAD s/p PCI >5 years ago, mildly dilated thoracic aorta (4cm), COPD, multiple LE ortho surgeries presents to ER w/ left SSCP worsening in severity since last night associated w/ SOB. Denies cough, fever, chills, palps. No edema on PND. Also had "tingling" sensation associated with pain down left arm. Head CT negative. Data from ER reviewed above. Sono abdominal aorta also performed because she c/o abdominal pain, non-specific -- no dilatation noted. Of note, her ECG shows new ST depressions in V3-V6 compared to prior ECG from September. MEDS: reviewed in EMR ALL: Fragrances FH: non-contributory SH: Non smoker EXAM: vitals as above Anicteric 2+ Carotid and radial pulses CV: S1. 2. RRR. No murmurs Chest: CTA b/l Abd: soft, NT Ext: No edema IMP: Likely unstable angina CAD s/p PCI REC: CTA chest, r/o dissection If negative, plan for transfer to [facility] for cath in AM Can anticoagulate w/ Lovenox. ASA. Refusing nitro.
[2017-05-26 20:07] VITALS: TEMP 97.5
[2017-05-26 21:47] VITALS: BP 110/65; PULSE 90
[2017-05-26] MEDS ORDERED: ENOXAPARIN NA (PORCINE) 100 MG/1 ML DISP.SYRIN SQ SCH (23:00)
--- NOTE | 2017-05-27 10:44 | EKG ---
Test Reason : Blood Pressure : / mmHG Vent. Rate : 089 BPM Atrial Rate : 089 BPM P-R Int : 186 ms QRS Dur : 076 ms QT Int : 290 ms P-R-T Axes : 052 -27 035 degrees QTc Int : 352 ms NORMAL SINUS RHYTHM POSSIBLE LEFT ATRIAL ENLARGEMENT NONSPECIFIC ST AND T WAVE ABNORMALITY ABNORMAL ECG WHEN COMPARED WITH ECG OF 05-OCT-2016 22:01, NONSPECIFIC T WAVE ABNORMALITY, WORSE IN ANTEROLATERAL LEADS QT HAS SHORTENED Confirmed by LETA SANTOS MD ([id number]) on 05/27/2017 10:44:09 AM Referred By: Confirmed By:LETA SANTOS MD
== END 2017-05-26 21:47 | disposition short-term general hospital (02) ==
LOC: JER 10:32 → JERBED 15:05 → INTOOBSV 15:05
PROVIDERS: ADMIT Internal Medicine; ATTEND Internal Medicine
PROC: 3E0333Z Introduction of Anti-inflammatory into Peripheral Vein, Percutaneous Approach (ICD-10-PCS; principal; 2017-05-26)
PROC: 3E033NZ Introduction of Analgesics, Hypnotics, Sedatives into Peripheral Vein, Percutaneous Approach (ICD-10-PCS; 2017-05-26)
PROC: 3E033GC Introduction of Other Therapeutic Substance into Peripheral Vein, Percutaneous Approach (ICD-10-PCS; 2017-05-26)
PROC: 3E0337Z Introduction of Electrolytic and Water Balance Substance into Peripheral Vein, Percutaneous Approach (ICD-10-PCS; 2017-05-26)
PROC: 3E013GC Introduction of Other Therapeutic Substance into Subcutaneous Tissue, Percutaneous Approach (ICD-10-PCS; 2017-05-26)
PROC: 3E0F7GC Introduction of Other Therapeutic Substance into Respiratory Tract, Via Natural or Artificial Opening (ICD-10-PCS; 2017-05-26)
DX: R07.9 Chest pain, unspecified (principal); I25.110 Atherosclerotic heart disease of native coronary artery with unstable angina pectoris; I25.2 Old myocardial infarction; I50.32 Chronic diastolic (congestive) heart failure; I10 Essential (primary) hypertension; E11.9 Type 2 diabetes mellitus without complications; H44.9 Unspecified disorder of globe; K21.9 Gastro-esophageal reflux disease without esophagitis; D64.9 Anemia, unspecified; K76.0 Fatty (change of) liver, not elsewhere classified; Z87.19 Personal history of other diseases of the digestive system; Z86.79 Personal history of other diseases of the circulatory system; Z87.891 Personal history of nicotine dependence; Z91.048 Other nonmedicinal substance allergy status; Z79.82 Long term (current) use of aspirin; R10.13 Epigastric pain
CPT/HCPCS: 36415; 70450-TC; 71010-TC; 71275-TC; 74175-TC; 76775-TC; 80053; 81003; 82465; 83718; 83721; 84478; 84484; 85025; 85610; 86850; 86900; 86901; 93005; 93010; 99285-25; G0378

== ENCOUNTER 2017-12-06 19:57 | Emergency (ER) | payer OTHER ==
[2017-12-06 20:32] VITALS: BP 92/67; PULSE 114; TEMP 98.1
[2017-12-06] MEDS ORDERED: SODIUM CHLORIDE 1,000 ML IV STA (21:11)
[2017-12-06] MEDS ORDERED: ONDANSETRON 4 MG/2 ML VIAL IVPUSH ONE (21:16)
[2017-12-06] MEDS ORDERED: ONDANSETRON 4 MG/2 ML VIAL ONE (21:19)
[2017-12-06 21:34] LABS: BASO % 0.4 % (0-2.0); EOS % 0.8 % (0-4.5); HEMATOCRIT 44.4 % (32.4-45.2); HEMOGLOBIN 14.9 GM/dL (10.7-15.3); LYMPH % 9.2 % (8-40); MCH 30.1 pg (25.7-33.7); MCHC 33.6 g/dl (32.0-36.0); MEAN CELL VOLUME 89.8 fl (80-96); MEAN PLT VOLUME 8.6 fl (7.5-11.1); MONO % 11.7 % (3.8-10.2); NEUT % 77.9 % (42.8-82.8); PLATELET COUNT 203 K/MM3 (134-434); RBC 4.95 M/mm3 (3.60-5.2); RDW 15.5 % (11.6-15.6); WHITE BLOOD COUNT 10.3 K/mm3 (4.0-10.0)
[2017-12-06 22:08] LABS: ALBUMIN 4.2 g/dl (3.4-5.0); ANION GAP 7 (8-16); BILIRUBIN,TOTAL 0.9 mg/dL (0.2-1.0); BLOOD UREA NITROGEN 32 mg/dL (7-18); CHLORIDE 110 mmol/L (98-107); CO2 22 mmol/L (21-32); CREATININE 1.6 mg/dL (0.55-1.02); GLUCOSE,RANDOM 106 mg/dL (74-106); POTASSIUM 5.2 mmol/L (3.5-5.1); SGOT/AST 13 U/L (15-37); SGPT/ALT 28 U/L (12-78); SODIUM 139 mmol/L (136-145); TOT PROT 7.5 g/dl (6.4-8.2)
[2017-12-06 22:09] LABS: ALK PHOS 85 U/L (45-117)
--- NOTE | 2017-12-07 00:02 | PDOC ---
Attending Attestation - Resident Resident Name: Devon Quintanilla - ED Attending Attestation I have performed the following: I have examined & evaluated the patient, The case was reviewed & discussed with the resident, I agree w/resident's findings & plan, Exceptions are as noted - HPI HPI: 12/06/17 23:57 Patient is a 67 year old female with a significant past medical history of aneurysm, CAD (S/P STENTING LAST CATH 11/10 [facility]), HTN, Hyperlipidemia, Asthma, COPD, Sleep Apnea, Depression, Osteoarthritis, ulcers, and colitis who presents to the ED with epigastric pain, nausea, diarrhea, and vomiting today. The patient states she was in her normal state of health until she ate a banana this morning and subsequently experienced watery diarrhea and an episode of non- bloody, non-bilious vomit. As per EMS, patient was given zofran and saline en route to the ED. The patient reports her symptoms have improved since but endorses mild nausea and epigastric pain. Denies radiation of pain towards her back, denies F/C, denies SOB. Denies dysuria, frequency, urgency and hematuria. Pt states that she has been diagnosed with colitis in the past, and this feels similar to that. Allergies: None Social history: No smoking. No alcohol. No illicit drugs. Surgical history: Joint Replacement, Tonsillectomy PMD: Dr. Coe[place]. Dr. Pickett (damper fitter). - Physicial Exam PE: 12/06/17 23:58 "GENERAL: Awake, alert, and fully oriented, in no acute distress. Generally weak appearing. HEAD: No signs of trauma EYES: PERRLA, EOMI, sclera anicteric, conjunctiva clear ENT: Auricles normal inspection, hearing grossly normal, nares patent, oropharynx clear without exudates. Moist mucosa NECK: Nontender, no stepoffs, Normal ROM, supple, no lymphadenopathy, JVD, or masses LUNGS: Breath sounds equal, clear to auscultation bilaterally. No wheezes, and no crackles HEART: Regular rate and rhythm, normal S1 and S2, no murmurs, rubs or gallops ABDOMEN: + epigastric TTP, normoactive bowel sounds. No guarding, no rebound. No masses EXTREMITIES: Normal range of motion, no edema. No clubbing or cyanosis. No cords, erythema, or tenderness NEUROLOGICAL: Cranial nerves II through XII intact. 5/5 strength and sensation in all extremities, Normal speech, normal gait, normal cerebellar function SKIN: Warm, Dry, normal turgor, no rashes or lesions noted. " - Medical Decision Making 12/07/17 00:02 67 F with epigastric pain + N/V/D x 1 day. Will need to r/o ACS given significant cardiac history. Also consider pancreatitis vs gastritis/PUD vs colitis. - Labs, trop, lactate - CTAP - IVF, GI cocktail 12/07/17 01:08 CTAP shows diarrhea without any signs of colitis/diverticulitis/appendicitis. Pt with improved symptoms s/p fluids and GI meds. Pt states she will f/u with her GI Dr. Lamas. Pt is well appearing, with normal vitals. Clinically stable for DC at this time. I discussed the physical exam findings, ancillary test results and final diagnoses with the patient. I answered all of the patient's questions. The patient was satisfied with the care received and felt comfortable with the discharge plan and treatment plan. The patient agrees to follow up with the primary care physician within 24-72 hours.
--- NOTE | 2017-12-07 01:07 | PDOC ---
History of Present Illness - General Chief Complaint: Nausea/Vomiting Stated Complaint: sob Time Seen by Provider: 12/06/17 21:11 History Source: Patient Exam Limitations: No Limitations - History of Present Illness Initial Comments: 12/07/17 01:03 67F with pmh of Angina s/p stent, HTN, 4.3 thoracic aortic aneurism and ischemic colitis presents to the ED after multiple episodes of vomiting, diarrhea and epigastric pain today since around noon today. She also admits to some mild chest wall pain on the left ribcage. Admits to belly pain and diarrhea every week for the past few months. Past History - Past Medical History Allergies/Adverse Reactions: Allergies Allergy/AdvReac Type Severity Reaction Status Date / Time No Known Drug Allergies Allergy Verified 05/26/17 10:36 FRAGRANCES Allergy Severe RESPIRATORY Uncoded 05/26/17 10:36 DISTRESS Home Medications: Ambulatory Orders Famotidine [Pepcid] 20 mg PO BID 10/05/14 Rosuvastatin Calcium [Crestor] 5 mg PO HS 10/05/14 Cyanocobalamin Vit B-12 Inj. [Vitamin B12 Injection -] 1,000 mcg IM WEEKLY 06/27 Diltiazem HCl [Diltiazem 24Hr Cd] 240 mg PO DAILY 06/27/15 Aspirin [ASA -] 81 mg PO DAILY #0 tab.chew 07/01/16 Alprazolam [Xanax Xr] 1 mg PO PRN 10/22/16 Metaxalone [Skelaxin] 400 mg PO BID 10/22/16 Primidone 25 mg PO TID 10/22/16 Diphenhydramine HCl [Benadryl -] 25 mg PO Q6H 05/26/17 Ergocalciferol [Vitamin D2] 50,000 unit PO WEEKLY 05/26/17 Loratadine [Claritin] 10 mg PO DAILY 05/26/17 Polyethylene Glycol 3350 [Miralax (For Daily Use) -] 17 gm PO DAILY 05/26/17 Ranolazine [Ranexa] 500 mg PO BID 05/26/17 Tiotropium [place] [Spiriva] 1 inh IH DAILY 05/26/17 Ondansetron [Zofran *Odt*] 8 mg SL TID #14 od.tablet 12/07/17 Anemia: Yes (ON B12 INJECTIONS) Asthma: Yes Cardiac Disorders: Yes (ASHD-CORONARY STENTING 2009 negative cath 05/27/17) COPD: Yes Diabetes: Yes (borderline diabetic) GI Disorders: Yes (ACID REFLUX;ISCHEMIC COLITIS) HTN: Yes Hypercholesterolemia: Yes Liver Disease: Yes (FATTY LIVER) Thyroid Disease: Yes (HYPOTHYROIDISM-HAD BEEN ON SYNTHROID, OFF "FOR A COUPLE OF YEARS") - Surgical History Abdominal Surgery: Yes (pancreatic biopsy 2011) Appendectomy: Yes Cardiac Surgery: Yes (2009 STENT) Orthopedic Surgery: Yes (LEFT KNEE ARTHROSCOPY; RIGHT MASS AND PINS AND SCREWS FROM RIGHT ANKLE) - Family Disease History Family Disease History: Diabetes: Mother, Heart Disease: Father - Suicide/Smoking/Psychosocial Hx Smoking Status: No Smoking History: Never smoked Have you smoked in the past 12 months: No Number of Cigarettes Smoked Daily: 0 If you are a former smoker, when did you quit?: 17 YRS Information on smoking cessation initiated: No Hx Alcohol Use: No Drug/Substance Use Hx: No Substance Use Type: None Hx Substance Use Treatment: No *Physical Exam - Vital Signs Last Vital Signs Temp Pulse Resp BP Pulse Ox 98.1 F 114 H 18 92/67 100 12/06/17 20:28 12/06/17 20:28 12/06/17 20:28 12/06/17 20:28 12/06/17 20:28 ED Treatment Course - LABORATORY CBC & Chemistry Diagram: 12/06/17 21:25 12/06/17 21:25 - ADDITIONAL ORDERS Additional order review: Laboratory Results 12/06/17 12/06/17 12/06/17 22:41 21:25 21:25 Sodium Potassium Chloride Carbon Dioxide Anion Gap BUN Creatinine Creat Clearance w eGFR Random Glucose Lactic Acid 1.5 Calcium Total Bilirubin AST ALT Alkaline Phosphatase Creatine Kinase 58 Troponin I < 0.02 Total Protein Albumin Lipase 298 12/06/17 21:25 Sodium 139 Potassium 5.2 H Chloride 110 H Carbon Dioxide 22 Anion Gap 7 L BUN 32 H Creatinine 1.6 H Creat Clearance w eGFR 32.35 Random Glucose 106 Lactic Acid Calcium 9.0 Total Bilirubin 0.9 D AST 13 L ALT 28 Alkaline Phosphatase 85 Creatine Kinase Troponin I Total Protein 7.5 Albumin 4.2 Lipase 12/06/17 21:25 RBC 4.95 D MCV 89.8 MCHC 33.6 RDW 15.5 MPV 8.6 Neutrophils % 77.9 D Lymphocytes % 9.2 D Monocytes % 11.7 H Eosinophils % 0.8 Basophils % 0.4 - RADIOLOGY Radiology Studies Ordered: Category Date Time Status ABDOMEN & PELVIS CT WITH CONTR [CT] Stat CT Scan 12/06/17 23:03 Taken - Medications Given in the ED: ED Medications Discontinued Medications Generic Name Dose Route Start Last Admin Trade Name Mikeq PRN Reason Stop Dose Admin Sodium Chloride 1,000 mls @ 1,000 mls/hr 12/06/17 21:11 12/06/17 21:16 Normal Saline - IV 12/06/17 22:10 1,000 mls/hr ASDIR STA Administration Ondansetron HCl 4 mg 12/06/17 21:16 12/06/17 21:17 Zofran Injection IVPUSH 12/06/17 21:17 4 mg ONCE ONE Administration *DC/Admit/Observation/Transfer Diagnosis at time of Disposition: Viral gastroenteritis - Discharge Dispostion Disposition: HOME Condition at time of disposition: Improved Admit: No - Referrals Referrals: Amy Lamas MD [Staff Physician] - - Patient Instructions Printed Discharge Instructions: DI for Viral Gastroenteritis -- Adult Additional Instructions: Follow up with your GI doctor Dr. Lamas within 2-3 days. Come back to the ER for any new, worsening or concerning symptom. - Post Discharge Activity
--- NOTE | 2017-12-07 13:35 | EKG ---
Test Reason : Blood Pressure : / mmHG Vent. Rate : 097 BPM Atrial Rate : 097 BPM P-R Int : 158 ms QRS Dur : 068 ms QT Int : 360 ms P-R-T Axes : 066 -35 057 degrees QTc Int : 457 ms NORMAL SINUS RHYTHM LEFT AXIS DEVIATION NONSPECIFIC ST ABNORMALITY ABNORMAL ECG WHEN COMPARED WITH ECG OF 30-MAY-2017 09:21, NO SIGNIFICANT CHANGE WAS FOUND Confirmed by MD George, Kaushal ([id number]) on 12/07/2017 1:35:15 PM Referred By: Confirmed By:Kaushal Vazquez MD
== END 2017-12-07 01:42 | disposition home or self-care (01) ==
LOC: JER 19:57
PROC: 3E0337Z Introduction of Electrolytic and Water Balance Substance into Peripheral Vein, Percutaneous Approach (ICD-10-PCS; principal; 2017-12-06)
PROC: 3E033GC Introduction of Other Therapeutic Substance into Peripheral Vein, Percutaneous Approach (ICD-10-PCS; 2017-12-06)
DX: A08.4 Viral intestinal infection, unspecified (principal); B97.89 Other viral agents as the cause of diseases classified elsewhere; I25.119 Atherosclerotic heart disease of native coronary artery with unspecified angina pectoris; I25.83 Coronary atherosclerosis due to lipid rich plaque; I10 Essential (primary) hypertension; Z95.5 Presence of coronary angioplasty implant and graft; R78.5 Finding of other psychotropic drug in blood; J45.909 Unspecified asthma, uncomplicated; J44.9 Chronic obstructive pulmonary disease, unspecified; F32.9 Major depressive disorder, single episode, unspecified; M19.90 Unspecified osteoarthritis, unspecified site; D64.9 Anemia, unspecified; D03.9 Melanoma in situ, unspecified; G47.30 Sleep apnea, unspecified; I71.2 Thoracic aortic aneurysm, without rupture
CPT/HCPCS: 36415; 74177-TC; 80053; 82550; 83605; 83690; 84484; 85025; 93005; 93010; 96361; 96374; 99281-25; J7030

== ENCOUNTER 2017-12-08 09:33 | Emergency (ER) | payer OTHER ==
[2017-12-08 09:49] VITALS: BP 134/84; PULSE 97; TEMP 97.6; BMI 35.2
== END 2017-12-08 10:50 | disposition left against medical advice (07) ==
LOC: JERFT 09:33 → JER 09:33 → JERFT 10:50
DX: Z53.21 Procedure and treatment not carried out due to patient leaving prior to being seen by health care provider (principal)
CPT/HCPCS: 99281-25

== ENCOUNTER 2018-04-05 13:09 | Observation (INO) | payer OTHER ==
[2018-04-05 13:19] VITALS: BMI 34.2
--- NOTE | 2018-04-05 16:34 | PDOC ---
History of Present Illness - General Chief Complaint: Pain Stated Complaint: PCP SENT FOR ADMIT FOR PAIN MANAGEMENT Time Seen by Provider: 04/05/18 16:34 History Source: Patient Exam Limitations: No Limitations - History of Present Illness Initial Comments: 04/05/18 16:48 67 year old female with PMH CAD (1 stent), thoracic aortic aneurysm, HTN, ischemic colitis, GERD, COPD, asthma presenting to ED for right knee pain. Pt was sent to ED for admission by Dr. Copeland. Pt is unable to bear weight. She states she recieved her fourth intra-articular injection into her right knee last wednesday, since then has had knee pain and stiffness. She states her right knee pain radiates to her right lower leg. She also complains of mid to low midline back pain and low bilateral paraspinal back pain. She denies radiation to her legs. States she has chronic back pain, had back surgery 06/2017, which included a fusion. She denies fever, chills, nausea, vomiting, chest pain, shortness of breath, weakness, numbness, headache, bowel or bladder incontinence , dysuria. Dr. Copeland states that pt has suicidal ideation. Pt admits to suicidal ideation, no plan, no homicidal ideation. Pt states she has taken pills in the past to try to harm herself. Recent right knee MRI 04/01/18: enlarged anterior cruciate ligament, dempnstrating increased instrsubstance signal with abnormal horizontal course, which likely represents tearing and incompetence of the ACL. The posterior cruciate ligaments are intact as are the medial collateral ligament, lateral collateral ligament complex. Mild tendinosis of the popliteus. The medial and lateral menisci appear chronically torn and macerated. There is grade 4 articular cartilage loss noted in the central to posterior portion of the lateral joint compartment with exposed bone and associated subchondral sclerosis measuring approximately 4.6 cm in AP dimension. Grade 2 articular cartilage loss noted diffusely in the medial compartment of the knee in grade 2 articular cartilage loss noted diffusely in the medial compartment of the knee in grade 2 articular cartilage loss noted in the patellofemoral compartment. The extensor mechanism is intact. The signal arising from bone marrow is norml with no stress fracture or osteonecrosis. Large knee joint effusion with decompression a large popliteal cyst. There is associated synovial thickening. Multiple loose bodies are seen including well corticated density noted posterior to the posterior cruciate ligament. Recent Lower Extremity Venous US 03/31/18: The common femoral vein, superficial femoral vein, popliteal vein, posterior tibial vein, peroneal vein and anterior tibial vein show normal flow and compressibility. A azevedo's cyst with minimal internal echogenic debris is noted measuring 5.9x1.8x3.7. PCP - Dr. Copeland Supervisor [employer] - Dr. Huitron Past History - Past Medical History Allergies/Adverse Reactions: Allergies Allergy/AdvReac Type Severity Reaction Status Date / Time No Known Drug Allergies Allergy Verified 12/08/17 09:42 FRAGRANCES Allergy Severe RESPIRATORY Uncoded 12/08/17 09:42 DISTRESS Home Medications: Ambulatory Orders Famotidine [Pepcid] 20 mg PO BID 10/05/14 Rosuvastatin Calcium [Crestor] 5 mg PO HS 10/05/14 Cyanocobalamin Vit B-12 Inj. [Vitamin B12 Injection -] 1,000 mcg IM WEEKLY 06/27 Diltiazem HCl [Diltiazem 24Hr Cd] 240 mg PO DAILY 06/27/15 Aspirin [ASA -] 81 mg PO DAILY #0 tab.chew 07/01/16 Alprazolam [Xanax Xr] 1 mg PO PRN 10/22/16 Primidone 25 mg PO TID 10/22/16 Diphenhydramine HCl [Benadryl -] 25 mg PO Q6H PRN 05/26/17 Ergocalciferol [Vitamin D2] 50,000 unit PO WEEKLY 05/26/17 Loratadine [Claritin] 10 mg PO DAILY 05/26/17 Ranolazine [Ranexa] 500 mg PO BID 05/26/17 Tiotropium [place] [Spiriva] 1 inh IH DAILY 05/26/17 Oxycodone HCl/Acetaminophen [Percocet 5-325 mg Tablet -] 1 combo PO Q6H PRN #14 tablet MDD 4 04/01/18 Anemia: Yes (ON B12 INJECTIONS) Asthma: Yes Cardiac Disorders: Yes (ASHD-CORONARY STENTING 2009 negative cath 05/27/17) COPD: Yes Diabetes: Yes (borderline diabetic) GI Disorders: Yes (ACID REFLUX;ISCHEMIC COLITIS) HTN: Yes Hypercholesterolemia: Yes Liver Disease: Yes (FATTY LIVER) Thyroid Disease: Yes (HYPOTHYROIDISM-HAD BEEN ON SYNTHROID, OFF "FOR A COUPLE OF YEARS") Other medical history: Chronic incompetence of ACL - Surgical History Abdominal Surgery: Yes (pancreatic biopsy 2011) Appendectomy: Yes Cardiac Surgery: Yes (2009 STENT) Orthopedic Surgery: Yes (LEFT KNEE ARTHROSCOPY; RIGHT MASS AND PINS AND SCREWS FROM RIGHT ANKLE) - Family Disease History Family Disease History: Diabetes: Mother, Heart Disease: Father - Suicide/Smoking/Psychosocial Hx Smoking Status: No Smoking History: Never smoked Have you smoked in the past 12 months: No Number of Cigarettes Smoked Daily: 0 If you are a former smoker, when did you quit?: 17 YRS Information on smoking cessation initiated: No Hx Alcohol Use: Yes (occasional) Drug/Substance Use Hx: No Substance Use Type: None Hx Substance Use Treatment: No Review of Systems - Review of Systems Able to Perform ROS?: Yes Comments:: 04/05/18 17:01 General: denies fever, chills, night sweats, generalized weakness. HEENT: denies sore throat, rhinorrhea, ear pain. Heart: denies chest pain, palpitations, syncope, lower extremity swelling, diaphoresis. Respiratory: denies shortness of breath, cough, sputum production, hematemesis. Abdomen: denies abdominal pain, nausea, vomiting, diarrhea, constipation, blood in stool, bowel incontinence. : denies dysuria, increased urinary frequency, hematuria, urinary incontinence , flank pain. Back: admits to back pain. denies flank pain. Musculoskeletal: admits to right knee pain. Neurological: denies headache, dizziness, numbness, tingling, weakness. Skin: denies rash, laceration, abrasion. *Physical Exam - Vital Signs Last Vital Signs Temp Pulse Resp BP Pulse Ox 98.5 F 87 18 126/80 96 04/05/18 13:16 04/05/18 13:16 04/05/18 13:16 04/05/18 13:16 04/05/18 13:16 - Physical Exam Comments: 04/05/18 17:01 Appearance: comfortable. HEENT: head is normocephalic, atraumatic. EOMI. PERRLA. Neck: supple. Full ROM. Heart: regular rhythm. no murmurs, rubs or gallops. No pericardial friction rub. Lungs: clear to auscultation bilaterally. no crackles, rhonchi or wheezing. no stridor. Abdomen: soft, nontender. normal bowel sounds. no rebound, guarding, masses. Back: pt is wearing a back brace. no tenderness to palpation of midline c-spine , t-spine or l-spine. No paraspinal tenderness. Extremities: No swelling to right knee. Linear surgical scar to left knee, healed well. Peripheral pulses intact and equal. No lower extremity edema. Neurological: Alert. Oriented x3. CN 2-12 grossly intact. Moves all four extremities. ED Treatment Course - LABORATORY CBC & Chemistry Diagram: 04/05/18 17:42 04/05/18 17:44 Medical Decision Making - Medical Decision Making 04/05/18 17:23 67 year old female with PMH HTN, thoracic aorta aneurysm, ischemic colitis, COPD , asthma, GERD presenting to ED from Dr. Copeland's office for admission for right knee pain. Recent MRI as above. Recent LE US negative as above. Dr. Copeland also mentioned that pt wants to harm herself. Pt states she wants to harm herself because of all of her pain, no plan, no homicidal ideation. 04/05/18 17:59 Morphine ordered for pain control. Dr. Singh consulted for psychological evaluation. 1:1 ordered. I spoke with Dr. Singh, who will accept the consult, he states he will see the patient tomorrow. Pt will be admitted for suicidal ideation, right knee pain and back pain. 04/05/18 18:54 I discussed the case with Dr. Husain, who will take over care for the patient in the emergency department. *DC/Admit/Observation/Transfer Diagnosis at time of Disposition: Suicidal ideation, Knee pain, Back pain - Discharge Dispostion Condition at time of disposition: Stable Decision to Admit order: Yes - Referrals Referrals: Brien Copeland MD [Primary Care Provider] - - Patient Instructions - Post Discharge Activity
[2018-04-05] MEDS ORDERED: morphine CARPU-JECT 4 MG/1 ML DISP.SYRIN IVPUSH ONE (16:54)
--- NOTE | 2018-04-05 17:40 | PDOC ---
Attending Attestation - Resident Resident Name: Mary Ann Rose - ED Attending Attestation I have performed the following: I have examined & evaluated the patient, The case was reviewed & discussed with the resident, I agree w/resident's findings & plan, Exceptions are as noted - HPI HPI: 04/05/18 17:39 "The patient is a 67 year old female, with a significant PMH of CAD (1 stent), thoracic aortic aneurysm, HTN, ischemic colitis, GERD, COPD, asthma who presents to the emergency department with R knee pain as well as suicidal ideation. Pt reports chronic R knee pain 2/2 severe OA. Pt has had several intraarticular injections and is on a pain regimen that she states is ineffective. Pt expresses that she wishes to end her life because of the pain. She denies having a plan at this time. Denies auditory or visual hallucinations. The patient denies chest pain, shortness of breath, headache and dizziness. Denies fever, chills, nausea, vomit, diarrhea and constipation. Denies dysuria, frequency, urgency and hematuria. Allergies: NKA PCP - Dr. Copeland Rfid Analyst - Dr. Huitron" - Physicial Exam PE: 04/05/18 17:41 "GENERAL: Awake, alert, and fully oriented, in no acute distress. HEAD: No signs of trauma EYES: PERRLA, EOMI, sclera anicteric, conjunctiva clear ENT: Auricles normal inspection, hearing grossly normal, nares patent, oropharynx clear without exudates. Moist mucosa NECK: Nontender, no stepoffs, Normal ROM, supple, no lymphadenopathy, JVD, or masses LUNGS: Breath sounds equal, clear to auscultation bilaterally. No wheezes, and no crackles HEART: Regular rate and rhythm, normal S1 and S2, no murmurs, rubs or gallops ABDOMEN: Soft, nontender, normoactive bowel sounds. No guarding, no rebound. No masses EXTREMITIES: + R knee with limited ROM, + tenderness at bilateral jointline NEUROLOGICAL: Cranial nerves II through XII intact. 5/5 strength and sensation in all extremities, Normal speech, normal gait, normal cerebellar function SKIN: Warm, Dry, normal turgor, no rashes or lesions noted." - Medical Decision Making 04/05/18 17:42 67 F with chronic R knee pain and suicidal ideation. - 1 to 1 observation - labs - Psych consult <Isaac Montilla - Last Filed: 04/05/18 17:40> Attestations - Attestations 04/05/18 17:57 Documentation prepared by Nitish Hazel, acting as medical insurance verifier for Isaac Montilla MD. <Nitish Hazel - Last Filed: 04/05/18 17:57>
[2018-04-05] MEDS ORDERED: morphine SULFATE 4 MG/ML VIAL ONE (17:51)
[2018-04-05 18:19] LABS: BASO % 0.5 % (0-2.0); EOS % 3.2 % (0-4.5); HEMATOCRIT 40.3 % (32.4-45.2); HEMOGLOBIN 13.3 GM/dL (10.7-15.3); LYMPH % 35.5 % (8-40); MCH 30.8 pg (25.7-33.7); MCHC 33.1 g/dl (32.0-36.0); MEAN CELL VOLUME 93.3 fl (80-96); MEAN PLT VOLUME 9.2 fl (7.5-11.1); MONO % 9.7 % (3.8-10.2); NEUT % 51.1 % (42.8-82.8); PLATELET COUNT 197 K/MM3 (134-434); RBC 4.32 M/mm3 (3.60-5.2); RDW 13.6 % (11.6-15.6); WHITE BLOOD COUNT 6.1 K/mm3 (4.0-10.0)
[2018-04-05 18:22] LABS: INR 0.95 (0.83-1.09); PROTHROMBIN TIME (PATIENT) 10.7 SEC (9.7-13.0)
[2018-04-05 18:25] LABS: ACTIVATED PTT 28.2 SECONDS (25.2-36.5)
[2018-04-05 18:34] LABS: ALBUMIN 4.3 g/dl (3.4-5.0); ANION GAP 9 (8-16); BLOOD UREA NITROGEN 21 mg/dL (7-18); CALCIUM 9.4 mg/dL (8.5-10.1); CHLORIDE 106 mmol/L (98-107); CO2 27 mmol/L (21-32); GLUCOSE,RANDOM 85 mg/dL (74-106); POTASSIUM 4.1 mmol/L (3.5-5.1); SGPT/ALT 23 U/L (12-78); SODIUM 142 mmol/L (136-145)
[2018-04-05 18:39] LABS: ALK PHOS 81 U/L (45-117); BILIRUBIN,TOTAL 0.3 mg/dL (0.2-1.0); CREATININE 0.9 mg/dL (0.55-1.02); SGOT/AST 13 U/L (15-37); TOT PROT 7.6 g/dl (6.4-8.2)
--- NOTE | 2018-04-05 19:09 | PDOC ---
*Physical Exam - Vital Signs Last Vital Signs Temp Pulse Resp BP Pulse Ox 98.5 F 87 18 126/80 96 04/05/18 13:16 04/05/18 13:16 04/05/18 13:16 04/05/18 13:16 04/05/18 13:16 - Physical Exam General Appearance: Yes: Nourished, Appropriately Dressed HEENT: positive: EOMI, MIGUEL Neck: positive: Trachea midline, Supple Respiratory/Chest: positive: Lungs Clear Cardiovascular: positive: S1, S2 Gastrointestinal/Abdominal: positive: Normal Bowel Sounds, Soft Extremity: positive: Normal Capillary Refill, Normal Inspection Integumentary: positive: Normal Color, Dry, Warm Neurologic: positive: Fully Oriented, Alert. negative: Confused, Disoriented ED Treatment Course - LABORATORY CBC & Chemistry Diagram: 04/05/18 17:42 04/05/18 17:44 - ADDITIONAL ORDERS Additional order review: Laboratory Results 04/05/18 04/05/18 17:44 17:44 PT with INR 10.70 INR 0.95 PTT (Actin FS) 28.2 Sodium 142 Potassium 4.1 Chloride 106 Carbon Dioxide 27 Anion Gap 9 BUN 21 H Creatinine 0.9 Creat Clearance w eGFR > 60 Random Glucose 85 Calcium 9.4 Total Bilirubin 0.3 AST 13 L ALT 23 Alkaline Phosphatase 81 Creatine Kinase 101 Troponin I < 0.02 C-Reactive Protein 0.3 Total Protein 7.6 Albumin 4.3 04/05/18 17:42 RBC 4.32 MCV 93.3 MCHC 33.1 RDW 13.6 D MPV 9.2 D Neutrophils % 51.1 Lymphocytes % 35.5 Monocytes % 9.7 Eosinophils % 3.2 Basophils % 0.5 - Medications Given in the ED: ED Medications Discontinued Medications Generic Name Dose Route Start Last Admin Trade Name Freq PRN Reason Stop Dose Admin Morphine Sulfate 4 mg 04/05/18 16:54 04/05/18 17:54 Morphine Injection - IVPUSH 04/05/18 16:55 4 mg ONCE ONE Administration Medical Decision Making - Medical Decision Making 04/05/18 19:[address] Rose (Resident) and Dr. Montilla (Attending) 67 year old female presents for knee pain and sucidial ideation. Patient currently A&O x3. States she is "just tired" and endorses suicidal intent with without a definitive plan. CBC unremarkable. Awaiting CMP and will admit to hospitalist medicine service. 04/05/18 20:00 CMP unremarkable. Hospitalist service paged. Patient counseled on plan of care, amenable to admission. *DC/Admit/Observation/Transfer Diagnosis at time of Disposition: Suicidal ideation, Knee pain, Back pain - Discharge Dispostion Condition at time of disposition: Stable - Referrals Referrals: Brien Copeland MD [Primary Care Provider] - - Patient Instructions - Post Discharge Activity
--- NOTE | 2018-04-06 00:33 | HP ---
Admitting History and Physical - Primary Care Physician PCP: Brien Copeland - Admission Chief Complaint: Chronic Pain- Lumbar, B/L Hips, Depression ad Suicidal Ideation History of Present Illness: 67 y/o woman PMHx of Aneurysm, Asthma, COPD, CAD (s/p Stenting), Sleep Apnea, HTN, HLD, Depression. Who presents to the ED sent in by her PCP for Suicidal Ideation, chronic knee and back pain. Patient reports being tired of dealing with her chronic pain. Patient denies SI or HI at present. Patient denies having a plan. Patient reports having numerous smvisc inj t her knees without relief. Patient denies fever, chills, AP N/V/D, dysuria. Limitations to Obtaining History: No Limitations - Past Medical History Cardiovascular: Yes: Aneurysm, CAD (S/P STENTING LAST CATH 11/10 [facility]), HTN, Hyperlipdemia Pulmonary: Yes: Asthma, COPD, Sleep Apnea Psych: Yes: Depression Musculoskeletal: Yes: Osteoarthritis - Past Surgical History Past Surgical History: Yes: Appendectomy, Hysterectomy, Joint Replacement, Tonsillectomy - Smoking History Smoking history: Former smoker Have you smoked in the past 12 months: No Aproximately how many cigarettes per day: 0 If you are a former smoker, when did you quit?: 17 YRS - Alcohol/Substance Use Hx Alcohol Use: Yes (occasional) History of Substance Use: reports: None - Social History ADL: Independent History of Recent Travel: No Home Medications - Allergies Allergies/Adverse Reactions: Allergies Allergy/AdvReac Type Severity Reaction Status Date / Time No Known Drug Allergies Allergy Verified 12/08/17 09:42 FRAGRANCES Allergy Severe RESPIRATORY Uncoded 12/08/17 09:42 DISTRESS - Home Medications Home Medications: Ambulatory Orders Famotidine [Pepcid] 20 mg PO BID 10/05/14 Rosuvastatin Calcium [Crestor] 5 mg PO HS 10/05/14 Cyanocobalamin Vit B-12 Inj. [Vitamin B12 Injection -] 1,000 mcg IM WEEKLY 06/27 Diltiazem HCl [Diltiazem 24Hr Cd] 240 mg PO DAILY 06/27/15 Aspirin [ASA -] 81 mg PO DAILY #0 tab.chew 07/01/16 Alprazolam [Xanax Xr] 1 mg PO PRN 10/22/16 Primidone 25 mg PO TID 10/22/16 Diphenhydramine HCl [Benadryl -] 25 mg PO Q6H PRN 05/26/17 Ergocalciferol [Vitamin D2] 50,000 unit PO WEEKLY 05/26/17 Loratadine [Claritin] 10 mg PO DAILY 05/26/17 Ranolazine [Ranexa] 500 mg PO BID 05/26/17 Tiotropium [place] [Spiriva] 1 inh IH DAILY 05/26/17 Oxycodone HCl/Acetaminophen [Percocet 5-325 mg Tablet -] 1 combo PO Q6H PRN #14 tablet MDD 4 04/01/18 Family Disease History - Family Disease History Family History: Unable to Obtain Review of Systems - Review of Systems Constitutional: reports: No Symptoms Eyes: reports: No Symptoms HENT: reports: No Symptoms Neck: reports: No Symptoms Cardiovascular: reports: No Symptoms Respiratory: reports: No Symptoms Gastrointestinal: reports: No Symptoms Genitourinary: reports: No Symptoms Breasts: reports: No Symptoms Reported Musculoskeletal: reports: Back Pain, Decreased ROM, Extremity Pain, Joint Pain, Joint Swelling, Muscle Pain Integumentary: reports: No Symptoms Neurological: reports: Numbness Endocrine: reports: No Symptoms Hematology/Lymphatic: reports: No Symptoms Psychiatric: reports: Depression Pain Intensity: 10 Physical Examination Vital Signs: Vital Signs Temperature 98.2 F 04/05/18 23:41 Pulse Rate 77 04/05/18 23:41 Respiratory Rate 16 04/05/18 23:41 Blood Pressure 131/86 04/05/18 23:41 O2 Sat by Pulse Oximetry (%) 98 04/05/18 23:41 Constitutional: Yes: Anxious, Other Eyes: Yes: WNL, Conjunctiva Clear, PERRL HENT: Yes: WNL, Atraumatic, Normocephalic Neck: Yes: WNL, Supple, Trachea Midline Cardiovascular: Yes: Regular Rate and Rhythm, S1, S2 Respiratory: Yes: WNL, Regular, CTA Bilaterally Gastrointestinal: Yes: WNL, Normal Bowel Sounds ...Rectal Exam: Yes: Deferred Renal/: Yes: WNL Breast(s): Yes: WNL Musculoskeletal: Yes: WNL Extremities: Yes: WNL Edema: Yes Peripheral Pulses WNL: Yes Neurological: Yes: WNL, Alert, Oriented ...Motor Strength: WNL Psychiatric: Yes: Alert, Oriented Labs: CBC, BMP 04/05/18 17:42 04/05/18 17:44 Intake & Output 04/03/18 04/04/18 04/05/18 04/06/18 23:59 23:59 23:59 23:59 Intake Total 200 Balance 200 Weight 87.543 kg 86.863 kg Current Medications Generic Name Dose Route Start Last Admin Trade Name Freq PRN Reason Stop Dose Admin Aspirin 81 mg 04/06/18 10:00 Asa - PO DAILY TINY Diltiazem HCl 240 mg 04/06/18 10:00 Cardizem Cd - PO DAILY TINY Loratadine 10 mg 04/06/18 10:00 Claritin - PO DAILY TINY Ranitidine HCl 150 mg 04/06/18 10:00 Zantac - PO BID TINY Ranolazine 500 mg 04/06/18 10:00 Ranexa - PO BID TINY Rosuvastatin Calcium 5 mg 04/06/18 22:00 Crestor - PO HS TINY Tiotropium [place] 2 puff 04/06/18 10:00 Spiriva Respimat IH DAILY TINY Imaging - Results Chest X-ray: Image Reviewed EKG: Image Reviewed Problem List - Problems (1) Back pain Code(s): M54.9 - DORSALGIA, UNSPECIFIED (2) Knee pain Code(s): M25.569 - PAIN IN UNSPECIFIED KNEE (3) Suicidal ideation Code(s): R45.851 - SUICIDAL IDEATIONS (4) Depression Code(s): F32.9 - MAJOR DEPRESSIVE DISORDER, SINGLE EPISODE, UNSPECIFIED Qualifiers: Depression Type: reactive depression Qualified Code(s): F32.9 - Major depressive disorder, single episode, unspecified (5) CAD (coronary artery disease) Code(s): I25.10 - ATHSCL HEART DISEASE OF [place] CORONARY ARTERY W/O ANG PCTRS Qualifiers: Coronary Disease-Associated Artery/Lesion type: [place] artery [place] vs. transplanted heart: [place] heart Associated angina: with stable angina Qualified Code(s): I25.119 - Atherosclerotic heart disease of [place] coronary artery with unspecified angina pectoris (6) DM II (diabetes mellitus, type II), controlled Code(s): E11.9 - TYPE 2 DIABETES MELLITUS WITHOUT COMPLICATIONS Qualifiers: Diabetes mellitus complication detail: with neuropathic arthropathy (7) GERD (gastroesophageal reflux disease) Code(s): K21.9 - GASTRO-ESOPHAGEAL REFLUX DISEASE WITHOUT ESOPHAGITIS Qualifiers: Esophagitis presence: without esophagitis Qualified Code(s): K21.9 - Gastro -esophageal reflux disease without esophagitis (8) HLD (hyperlipidemia) Code(s): E78.5 - HYPERLIPIDEMIA, UNSPECIFIED (9) HTN (hypertension) Code(s): I10 - ESSENTIAL (PRIMARY) HYPERTENSION Qualifiers: Hypertension type: essential hypertension Qualified Code(s): I10 - Essential (primary) hypertension (10) Hypothyroidism Code(s): E03.9 - HYPOTHYROIDISM, UNSPECIFIED Qualifiers: Hypothyroidism type: unspecified Qualified Code(s): E03.9 - Hypothyroidism , unspecified (11) Localized osteoarthritis of left knee Code(s): M17.9 - OSTEOARTHRITIS OF KNEE, UNSPECIFIED (12) Muscle spasms of neck Code(s): M62.838 - OTHER MUSCLE SPASM (13) Neck pain Code(s): M54.2 - CERVICALGIA (14) Osteoarthritis of left knee Code(s): M17.9 - OSTEOARTHRITIS OF KNEE, UNSPECIFIED (15) RLS (restless legs syndrome) Code(s): G25.81 - RESTLESS LEGS SYNDROME (16) Radiculopathy Code(s): M54.10 - RADICULOPATHY, SITE UNSPECIFIED (17) Spinal stenosis Code(s): M48.00 - SPINAL STENOSIS, SITE UNSPECIFIED (18) Stented coronary artery Code(s): Z95.5 - PRESENCE OF CORONARY ANGIOPLASTY IMPLANT AND GRAFT (19) Total knee replacement status Code(s): Z96.659 - PRESENCE OF UNSPECIFIED ARTIFICIAL KNEE JOINT Assessment/Plan 67 y/o woman placed in Observation for Intractable Back, Neck and generalized pain, suicidal Ideation for further evaluation of their emergent condition Plan: will place in Observation 1:1 observation Appreciate Cardiology consult Appreciate Psych consult Appreciate Ortho consult PT Monitor vitals Repeat CBC, BMP in am Continue home meds UDT-pending Folate TSH, B12- level FEN- fluids as tolerated, Replete lytes, Low Na Diet DVT ppx- OOB, SCDs, Heparin SQ Code Status: Full Code Dispo: Requires Inpatient Care Visit type - Emergency Visit Emergency Visit: Yes ED Registration Date: 04/05/18 Care time: The patient presented to the Emergency Department on the above date and was hospitalized for further evaluation of their emergent condition. - New Patient This patient is new to me today: Yes Date on this admission: 04/05/18 - Critical Care Critical Care patient: No Hospitalist Screening - Colonoscopy Questionnaire Colonoscopy Questionnaire: Colonoscopy Questionnaire - Patient: 50 - 75 years old and never had a screening colonoscopy: No History of colon or rectal polyps, or CA: No History of IBD, Crohn's disease or UC: No History of abdominal radiation therapy as a child: No - Relative: 1 with colon or rectal CA, or polyps at age 60 or younger: No Colon or rectal CA diagnosed at age 45 or younger: No Multiple relatives with colon or rectal CA: No - Outcome: Screening Result: Negative Screen
[2018-04-06] MEDS ORDERED: oxyCODONE HCL 5 MG TABLET PO ONE (04:00)
[2018-04-06] MEDS ORDERED: ACETAMINOPHEN 325 MG TABLET (FP) PO ONE (04:00)
[2018-04-06 06:54] VITALS: BP 131/77; PULSE 76; TEMP 97.5
[2018-04-06 07:22] LABS: BASO % 0.3 % (0-2.0); HEMOGLOBIN 13.1 GM/dL (10.7-15.3); LYMPH % 33.8 % (8-40); MCH 31.3 pg (25.7-33.7); MCHC 33.5 g/dl (32.0-36.0); MEAN CELL VOLUME 93.3 fl (80-96); MONO % 9.9 % (3.8-10.2); PLATELET COUNT 183 K/MM3 (134-434); RBC 4.18 M/mm3 (3.60-5.2); RDW 13.7 % (11.6-15.6); WHITE BLOOD COUNT 5.7 K/mm3 (4.0-10.0)
[2018-04-06 08:30] LABS: ANION GAP 6 (8-16); BLOOD UREA NITROGEN 16 mg/dL (7-18); CHLORIDE 105 mmol/L (98-107); CO2 29 mmol/L (21-32); GLUCOSE,RANDOM 95 mg/dL (74-106); POTASSIUM 3.7 mmol/L (3.5-5.1); SODIUM 140 mmol/L (136-145)
[2018-04-06 08:33] LABS: CALCIUM 9.7 mg/dL (8.5-10.1); CREATININE 0.9 mg/dL (0.55-1.02)
--- NOTE | 2018-04-06 08:57 | PN ---
Progress Note, Physician - Current Medication List Current Medications: Active Medications Aspirin (Asa -) 81 mg PO DAILY TINY Diltiazem HCl (Cardizem Cd -) 240 mg PO DAILY TINY Loratadine (Claritin -) 10 mg PO DAILY TINY Ranitidine HCl (Zantac -) 150 mg PO BID TINY Ranolazine (Ranexa -) 500 mg PO BID TINY Rosuvastatin Calcium (Crestor -) 5 mg PO HS TINY Tiotropium [place] (Spiriva Respimat) 2 puff IH DAILY TINY - Objective Vital Signs: Vital Signs Temperature 97.5 F L 04/06/18 06:00 Pulse Rate 76 04/06/18 06:00 Respiratory Rate 20 04/06/18 06:00 Blood Pressure 131/77 04/06/18 06:00 O2 Sat by Pulse Oximetry (%) 97 04/06/18 03:02 Labs: CBC, BMP 04/06/18 06:00 04/06/18 06:00 INR, PTT INR 0.95 (0.83-1.09) 04/05/18 17:44
--- NOTE | 2018-04-06 09:15 | DS ---
Physical Examination Vital Signs: Vital Signs Temperature 97.5 F L 04/06/18 06:00 Pulse Rate 76 04/06/18 06:00 Respiratory Rate 20 04/06/18 06:00 Blood Pressure 131/77 04/06/18 06:00 O2 Sat by Pulse Oximetry (%) 97 04/06/18 03:02 Findings/Remarks: AWAKE ALERT DENIES SUICIDAL OR HOMICIDAL THOUGHTS Constitutional: Yes: No Distress Eyes: Yes: WNL HENT: Yes: WNL Neck: Yes: WNL Cardiovascular: Yes: WNL Respiratory: Yes: WNL Gastrointestinal: Yes: WNL Renal/: Yes: WNL Musculoskeletal: Yes: Back Pain, Muscle Pain Extremities: Yes: WNL Edema: No Peripheral Pulses WNL: Yes Integumentary: Yes: WNL Wound/Incision: Yes: Clean/Dry Neurological: Yes: WNL ...Motor Strength: LLE, RLE Psychiatric: Yes: WNL Labs: CBC, BMP 04/06/18 06:00 04/06/18 06:00 Discharge Summary Reason For Visit: SUICIDAL IDEATION/BACK PAIN/KNEE PAIN Current Active Problems Back pain (Acute) Knee pain (Acute) Suicidal ideation (Acute) Procedures: Principal: LABS/1:1 OBSERVATION Hospital Course: ADMITTED FOR MISTAKEN SUICIDE THOUGHTS. PATIENT DENIES THIS AND SAYS SHE WAS MISUNDERSTOOD BY THE ER PHYSICIANS AND SHE IS NOT SUICIDAL OR HOMICIDAL. PSYCHIATRY CLEARANCE. Condition: Stable - Instructions Diet, Activity, Other Instructions: SEE DR ALEXANDRA IN 1-2 DAYS Referrals: Brien Copeland MD [Primary Care Provider] - Disposition: HOME - Home Medications Comprehensive Discharge Medication List: Ambulatory Orders Famotidine [Pepcid] 20 mg PO BID 10/05/14 Rosuvastatin Calcium [Crestor] 5 mg PO HS 10/05/14 Cyanocobalamin Vit B-12 Inj. [Vitamin B12 Injection -] 1,000 mcg IM WEEKLY 06/27 Diltiazem HCl [Diltiazem 24Hr Cd] 240 mg PO DAILY 06/27/15 Aspirin [ASA -] 81 mg PO DAILY #0 tab.chew 07/01/16 Alprazolam [Xanax Xr] 1 mg PO PRN 10/22/16 Primidone 25 mg PO TID 10/22/16 Diphenhydramine HCl [Benadryl -] 25 mg PO Q6H PRN 05/26/17 Ergocalciferol [Vitamin D2] 50,000 unit PO WEEKLY 05/26/17 Loratadine [Claritin] 10 mg PO DAILY 05/26/17 Ranolazine [Ranexa] 500 mg PO BID 05/26/17 Tiotropium [place] [Spiriva] 1 inh IH DAILY 05/26/17 Oxycodone HCl/Acetaminophen [Percocet 5-325 mg Tablet -] 1 combo PO Q6H PRN #14 tablet MDD 4 04/01/18
--- NOTE | 2018-04-06 09:21 | CON.CARD ---
Cardiology Consult (text) - Consultation Consultation Note: Ms. Mclain is my office patient. Her cardiac hx includes CAD s/p PCI > 3 years ago, HTN, chronic diastolic dysfx and a small and stable ascending aortic aneurysm of 4cm without significant AR. She was admitted now for concern regarding suicidal ideation by her PCP. Cardiac ROS: no CP, SOB, palps, edema, PND, orthopnea, syncope. MEDS: reviewed in EMR. Vitals, Labs and chart reviewed. ECG: NSR 69bpm, left axis. No Q waves. No acute ST changes. Exam: Anicteric No carotid bruits or JVD. CV: S1, 2. RRR. No M/R/G. Chest: CTA b/l without rales or wheezing Abd: soft, NT. No aortic enlargement or renal bruits. Ext: Warm, no edema. 2+ DP pulses b/l IMP: Well controlled HTN Stable, chronic CAD currently asx. Diastolic dysfx, currently euvolemic Chronic, stable small ascending aortic aneurysm of 4cm REC: Continue current cardiac meds. Outpatient f/u in 1-2 weeks as per routine schedule Psych evaluation. Please call again as/if needed. Will sign off today.
[2018-04-06] MEDS ORDERED: ASPIRIN 81 MG CHEWABLE TABLETS PO SCH (10:00)
[2018-04-06] MEDS ORDERED: RANOLAZINE E.R. 500 MG TABLET (FP) PO SCH (10:00)
[2018-04-06] MEDS ORDERED: TIOTROPIUM BROMIDE (SPIRIVA) RESPIMAT INHALER IH SCH (10:00)
[2018-04-06] MEDS ORDERED: LORATADINE 10 MG TABLET PO SCH (10:00)
[2018-04-06] MEDS ORDERED: RANITIDINE HCL 150 MG TABLET (FP) PO SCH (10:00)
--- NOTE | 2018-04-06 10:38 | EKG ---
Test Reason : Blood Pressure : / mmHG Vent. Rate : 069 BPM Atrial Rate : 069 BPM P-R Int : 190 ms QRS Dur : 076 ms QT Int : 434 ms P-R-T Axes : 058 -26 014 degrees QTc Int : 465 ms NORMAL SINUS RHYTHM NORMAL ECG WHEN COMPARED WITH ECG OF 06-DEC-2017 21:55, NO SIGNIFICANT CHANGE WAS FOUND Confirmed by SARAH CLARK MD ([id number]) on 04/06/2018 10:37:52 AM Referred By: Confirmed By:SARAH CLARK MD
--- NOTE | 2018-04-06 11:13 | CON.PSY ---
Psychiatry Consult Chief Complaint: 67 year old femal;e with chronic pain syndrome and multiple medical problems. Patient seen for psych consult. Symptoms: reports: Anxiety - Previous Psychiatric Treatment Outpatient: None Inpatient: None - Previous Substance Abuse Treatment Outpatient: None Inpatient: None - Reason for Previous Treatment Reason for Previous Treatment: Major Depression - Current Medications Current Medications: Active Medications Aspirin (Asa -) 81 mg PO DAILY TINY Diltiazem HCl (Cardizem Cd -) 240 mg PO DAILY TINY Loratadine (Claritin -) 10 mg PO DAILY TINY Ranitidine HCl (Zantac -) 150 mg PO BID TINY Ranolazine (Ranexa -) 500 mg PO BID TINY Rosuvastatin Calcium (Crestor -) 5 mg PO HS TINY Tiotropium [place] (Spiriva Respimat) 2 puff IH DAILY TINY - Allergies Allergies: Allergies Allergy/AdvReac Type Severity Reaction Status Date / Time No Known Drug Allergies Allergy Verified 12/08/17 09:42 FRAGRANCES Allergy Severe RESPIRATORY Uncoded 12/08/17 09:42 DISTRESS - Current Living Status Usual Living Arrangement: Alone - Current Mental Status Evaluation Appearance: Well Groomed Attitude: Cooperative - Affect Affect: Full Range Appropriateness: Appropriate to Content - Speech/Language Expressive: Coherent, Perseverating - Psychomotor Activity Psychomotor Activity: Normal - Thought Process Thought Process: Intact - Thought Content Hallucinations: Absent Delusions: Absent - Self Perception Self Perception: No Impairment - Cognition Attention: Alert Orientation: Time Memory, Immediate Recall: Intact Memory, Short Term: 2/3 Memory, Remote with Promptin/3 - Concentration Serial Sevens Intact: Yes Simple Calculations Intact: Yes - Abstraction Proverb Interpretation: Intact Judgement: Minimally Impaired - Insight Insight: Intact - Impulse Control Impulse Control: Good Control - Suicidal Ideation Suicidal Ideation: No - Homicidal Ideation Homicidal Ideation: No Assessment/Plan 1) {Patient is not suicidal and cleared for discharge.
[2018-04-06] MEDS ORDERED: ROSUVASTATIN CA 5 MG TABLET (FP) PO SCH (22:00)
== END 2018-04-06 11:36 | disposition home or self-care (01) ==
LOC: JER 13:09 → J5S 22:41
PROVIDERS: ADMIT Internal Medicine; ATTEND Family Medicine
PROC: 3E033NZ Introduction of Analgesics, Hypnotics, Sedatives into Peripheral Vein, Percutaneous Approach (ICD-10-PCS; principal; 2018-04-05)
DX: R45.851 Suicidal ideations (principal); M25.561 Pain in right knee; M54.9 Dorsalgia, unspecified; I10 Essential (primary) hypertension; I25.119 Atherosclerotic heart disease of native coronary artery with unspecified angina pectoris; J45.909 Unspecified asthma, uncomplicated; J44.9 Chronic obstructive pulmonary disease, unspecified; K21.9 Gastro-esophageal reflux disease without esophagitis; D64.9 Anemia, unspecified; R73.03 Prediabetes; E78.5 Hyperlipidemia, unspecified; K76.0 Fatty (change of) liver, not elsewhere classified; G47.30 Sleep apnea, unspecified; F32.9 Major depressive disorder, single episode, unspecified; E03.9 Hypothyroidism, unspecified; M17.12 Unilateral primary osteoarthritis, left knee; M62.838 Other muscle spasm; M54.2 Cervicalgia; M54.10 Radiculopathy, site unspecified; G25.81 Restless legs syndrome; M48.00 Spinal stenosis, site unspecified; G89.29 Other chronic pain; Z95.5 Presence of coronary angioplasty implant and graft; Z96.659 Presence of unspecified artificial knee joint; Z86.79 Personal history of other diseases of the circulatory system; Z98.1 Arthrodesis status; Z79.82 Long term (current) use of aspirin
CPT/HCPCS: 36415; 71045-TC-FY; 80048; 80053; 82550; 84484; 85025; 85610; 85651; 85730; 86140; 93005; 93010; 96374; 99283-25; G0378

== ENCOUNTER 2019-10-26 11:41 | Inpatient (IN) | payer OTHER ==
[2019-10-26] MEDS ORDERED: ASPIRIN 81 MG CHEWABLE TABLETS PO ONE (12:14)
--- NOTE | 2019-10-26 12:21 | PDOC ---
History of Present Illness - General Chief Complaint: Chest Pain Stated Complaint: CHEST PAIN Time Seen by Provider: 10/26/19 12:09 History Source: Patient Exam Limitations: No Limitations - History of Present Illness Initial Comments: Jerrica Mclain is a 69 yo F with a significant PMH of HTN s/p cardiac stents ( 2008), hyperlipidemia, COPD, asthma, aortic aneurysm, GERD, colitis, and hypothyroidism who presents to the emergency department with substernal chest pain associated with radiation to the right arm when she performs physical activity as well as occasional radiation to the left arm. The patient endorses nausea but no emesis. The patient states the pain radiates down her arms and feels like tingling which she experienced when she had an NH many years ago. She states that this chest pain has been waking her up at night frequently for the past 3 days. She also endorses significant epigastric pain. She denies vomiting, lightheadedness or increased diaphoresis. Denies recent fevers, chills, or infections. Allergies: NKDA Past surgical history: Cardiac stent placement (2008). Pancreatic biopsy (2011) . Appendectomy (1984). Left knee replacement (2012). Social history: Former smoker. No reported alcohol or drug use. PCP: Dr. Copeland Cardiology: Dr. Chappell Past History - Past Medical History Allergies/Adverse Reactions: Allergies Allergy/AdvReac Type Severity Reaction Status Date / Time No Known Drug Allergies Allergy Verified 10/26/19 11:51 FRAGRANCES Allergy Severe RESPIRATORY Uncoded 10/26/19 11:51 DISTRESS Home Medications: Ambulatory Orders Famotidine [Pepcid] 20 mg PO BID 10/05/14 Rosuvastatin Calcium [Crestor] 5 mg PO HS 10/05/14 Cyanocobalamin Vit B-12 Inj. [Vitamin B12 Injection -] 1,000 mcg IM WEEKLY 06/27 Diltiazem HCl [Diltiazem 24Hr ER (Cd)] 240 mg PO DAILY 06/27/15 Aspirin [ASA -] 81 mg PO DAILY #0 tab.chew 07/01/16 Alprazolam [Xanax Xr] 1 mg PO PRN 10/22/16 Primidone 50 mg PO BID 10/22/16 Diphenhydramine HCl [Benadryl Capsule -] 25 mg PO Q6H PRN 05/26/17 Ergocalciferol [Vitamin D2] 50,000 unit PO WEEKLY 05/26/17 Ranolazine [Ranexa] 500 mg PO BID 05/26/17 Tiotropium [place] [Spiriva] 1 inh IH DAILY 05/26/17 Budesonide/Formeterol Fumarate [SYMBICORT 160/4.5mcg -] 1 inh PO BID 10/26/19 Gabapentin 100 mg PO DAILY 10/26/19 Ketorolac 0.5% Eye Drop 1 drop OP ASDIR 10/26/19 Oxycodone HCl/Acetaminophen [Oxycodone-Acetaminophen 5-325] 1 tab PO BID PRN Anemia: Yes (ON B12 INJECTIONS) Asthma: Yes Cardiac Disorders: Yes (ASHD-CORONARY STENTING 2009 negative cath 05/27/17) COPD: Yes Diabetes: Yes (borderline diabetic) GI Disorders: Yes (ACID REFLUX;ISCHEMIC COLITIS) HTN: Yes Hypercholesterolemia: Yes Liver Disease: Yes (FATTY LIVER) Thyroid Disease: Yes (HYPOTHYROIDISM-HAD BEEN ON SYNTHROID, OFF "FOR A COUPLE OF YEARS") - Surgical History Abdominal Surgery: Yes (pancreatic biopsy 2011) Appendectomy: Yes Cardiac Surgery: Yes (2009 STENT) Orthopedic Surgery: Yes (LEFT KNEE ARTHROSCOPY; RIGHT MASS AND PINS AND SCREWS FROM RIGHT ANKLE) - Psycho Social/Smoking Cessation Hx Smoking Status: No Smoking History: Smoker current status UNK Have you smoked in the past 12 months: No Number of Cigarettes Smoked Daily: 0 If you are a former smoker, when did you quit?: 17 YRS Hx Alcohol Use: No Drug/Substance Use Hx: No Substance Use Type: None Hx Substance Use Treatment: No Review of Systems - Review of Systems Able to Perform ROS?: Yes Comments:: CONSTITUTIONAL: Absent: fever, no chills, no fatigue EYES: Absent: visual changes ENT: Absent: ear pain, no sore throat CARDIOVASCULAR: Present: Chest pain Absent: no palpitations RESPIRATORY: Absent: cough, no SOB GI: Present: Nausea Absent: abdominal pain, no vomiting, no constipation, no diarrhea GENITOURINARY: Absent: dysuria, no frequency, no hematuria MUSKULOSKELETAL: Absent: back pain, no arthralgia, no myalgia SKIN: Absent: rash NEURO: Absent: headache *Physical Exam - Vital Signs Last Vital Signs Temp Pulse Resp BP Pulse Ox 97.6 F 94 H 20 125/85 97 10/26/19 19:00 10/26/19 19:00 10/26/19 19:00 10/26/19 19:00 10/26/19 19:00 - Physical Exam GENERAL: Well-appearing, well-nourished. Moderate distress. HEENT: Normocephalic, atraumatic. PERRL, EOM intact. CARDIOVASCULAR: Normal S1, S2. Regular rate and rhythm. PULMONARY: No evidence of respiratory distress. Lungs clear to auscultation bilaterally. No wheezing, rales or rhonchi. ABDOMEN: Soft, non-distended, non-tender. EXTREMITIES: Normal ROM in all four extremities. No gross deformities. SKIN: Warm, dry. No rash NEUROLOGICAL: No focal neurological deficits. ED Treatment Course - LABORATORY CBC & Chemistry Diagram: 10/26/19 13:27 10/26/19 13:27 - ADDITIONAL ORDERS Additional order review: Laboratory Results 10/26/19 10/26/19 10/26/19 13:27 13:27 13:27 PT with INR 11.00 INR 0.93 PTT (Actin FS) 31.5 Sodium 138 Potassium 4.1 Chloride 106 Carbon Dioxide 25 Anion Gap 6 L BUN 17.2 Creatinine 0.9 Est GFR (CKD-EPI)AfAm 76.68 Est GFR (CKD-EPI)NonAf 66.16 Random Glucose 88 Calcium 9.6 Magnesium 2.0 Total Bilirubin 0.5 AST 16 ALT 27 Alkaline Phosphatase 68 Creatine Kinase 69 Troponin I < 0.02 B-Natriuretic Peptide 20.6 Total Protein 7.2 Albumin 4.1 Lipase 195 Urine Color Urine Appearance Urine pH Ur Specific [place] Urine Protein Urine Glucose (UA) Urine Ketones Urine Blood Urine Nitrite Urine Bilirubin Urine Urobilinogen Ur Leukocyte Esterase 10/26/19 12:35 PT with INR INR PTT (Actin FS) Sodium Potassium Chloride Carbon Dioxide Anion Gap BUN Creatinine Est GFR (CKD-EPI)AfAm Est GFR (CKD-EPI)NonAf Random Glucose Calcium Magnesium Total Bilirubin AST ALT Alkaline Phosphatase Creatine Kinase Troponin I B-Natriuretic Peptide Total Protein Albumin Lipase Urine Color Yellow Urine Appearance Clear Urine pH 5.0 Ur Specific [place] 1.015 Urine Protein Negative Urine Glucose (UA) Negative Urine Ketones Negative Urine Blood Negative Urine Nitrite Negative Urine Bilirubin Negative Urine Urobilinogen 0.2 Ur Leukocyte Esterase Negative 10/26/19 13:27 RBC 4.49 MCV 94.3 MCHC 32.8 RDW 13.7 MPV 8.3 Neutrophils % 60.2 Lymphocytes % 30.0 Monocytes % 7.1 Eosinophils % 2.1 Basophils % 0.6 - RADIOLOGY Radiology Studies Ordered: Category Date Time Status CTA CHEST ABD PEL W/WO CONT [CT] Stat CT Scan 10/26/19 15:30 Completed CHEST X-RAY PORTABLE* [RAD] Stat Radiology 10/26/19 12:15 Completed Radiograph Interpretation: EXAM#: TYPE/EXAM: RESULT: [id number] CT/CTA CHEST ABD PEL W/WO CONT CT angiography of the chest, abdomen and pelvis (without and with contrast) Clinical information: evaluate for dissecting aneurysm; chest pain Multiplanar, multiphase imaging of the chest, abdomen and pelvis was performed following the intravenous administration of nonionic contrast in addition to preliminary noncontrast scanning. No definite interval change is identified in comparison to prior CT studies of 07/04/2018 and 2016. There is mild fusiform aneurysmal dilatation of the ascending aorta with a 4.1 cm diameter. No intramural hematoma, dissection, or penetrating atherosclerotic ulceration is identified. The aortic root is partially obscured due to vascular pulsation artifact. There is no mediastinal hematoma. No abdominal aortic aneurysm or dissection is visualized. Extensive atherosclerotic calcifications are again noted along the left anterior descending coronary artery. There is no definite cardiac enlargement. No pericardial effusion is seen. No discrete thoracic lymphadenopathy is noted. The trachea and central bronchi demonstrate no obvious pathology. There is no evidence of pneumothorax, infiltrate or pleural effusion. Stable 0.2 cm left lower lobe noncalcified pulmonary nodule. Mild left lower lung field discoid atelectasis or scarring. No evidence of pneumoperitoneum, free intraperitoneal fluid or bowel obstruction. The liver, spleen, gallbladder, adrenal glands and kidneys demonstrate no discrete abnormality. Incidental right renal cortical cyst. No definite lymphadenopathy is seen on the basis of size criteria. The lower pelvis is partially obscured due to metallic artifact. The appendix is not definitely visualized however no obvious indirect CT signs of acute appendicitis are noted. No CT evidence of acute diverticulitis. There is no gross noncontrast small bowel pathology. The visualized osseous structures demonstrate no gross acute pathology. Status post multilevel bilateral lower lumbar spine surgery. Impression: No definite interval change is noted in comparison to CT studies performed in 2017 and 2016. Mild fusiform aneurysmal dilatation of the ascending aorta is noted with a 4.1 cm diameter. Extensive atherosclerotic coronary artery calcifications are visualized. - Medications Given in the ED: ED Medications Discontinued Medications Generic Name Dose Route Start Last Admin Trade Name Fly PRN Reason Stop Dose Admin Acetaminophen 650 mg 10/26/19 13:34 10/26/19 14:15 Tylenol - PO 10/26/19 13:35 650 mg ONCE ONE Administration Aspirin 162 mg 10/26/19 12:14 10/26/19 12:30 Asa - PO 10/26/19 12:15 162 mg ONCE ONE Administration Medical Decision Making - Medical Decision Making Jerrica Mclain is a 69 yo F with a significant PMH of HTN s/p cardiac stents ( 2008), hyperlipidemia, COPD, asthma, aortic aneurysm, GERD, colitis, and hypothyroidism who presents to the emergency department with substernal chest pain associated with radiation to the right arm when she performs physical activity as well as occasional radiation to the left arm. The patient endorses nausea but no emesis. The patient states the pain radiates down her arms and feels like tingling which she experienced when she had an NH many years ago. She states that this chest pain has been waking her up at night frequently for the past 3 days. She also endorses significant epigastric pain. She denies vomiting, lightheadedness or increased diaphoresis. Denies recent fevers, chills, or infections. Vital Signs Temp Pulse Resp BP Pulse Ox 98.3 F 100 H 18 135/89 100 10/26/19 12:00 10/26/19 12:00 10/26/19 12:00 10/26/19 12:00 10/26/19 12:00 DDx IBNLT: ACS - NSTEMI vs unstable angina, Dissection, electrolyte/metabolic disturbance Plan: Labs, EKG, CXR, +/- CTA, admit telemetry EKG: NS rate of 85, narrow complexes, LAD, LAE, QTc 449, MI 178, no ST elevations or depressions, no peaked T-waves Labs: Trop negative CTA: Documented above Disposition: Telemetry for cardiac workup Discharge - Discharge Information Problems reviewed: Yes Clinical Impression/Diagnosis: Chest pain Qualifiers: Chest pain type: unspecified Qualified Code(s): R07.9 - Chest pain, unspecified Condition: Stable - Admission Yes - Follow up/Referral - Patient Discharge Instructions - Post Discharge Activity
[2019-10-26] MEDS ORDERED: ASPIRIN 81 MG CHEWABLE TABLETS ONE (12:29)
[2019-10-26] MEDS ORDERED: ACETAMINOPHEN 325 MG TABLET (FP) PO ONE (13:34)
[2019-10-26 13:44] LABS: BASO % 0.6 % (0-2.0); EOS % 2.1 % (0-4.5); HEMATOCRIT 42.4 % (32.4-45.2); HEMOGLOBIN 13.9 GM/dL (10.7-15.3); MCH 30.9 pg (25.7-33.7); MCHC 32.8 g/dl (32.0-36.0); MEAN CELL VOLUME 94.3 fl (80-96); MEAN PLT VOLUME 8.3 fl (7.5-11.1); MONO % 7.1 % (3.8-10.2); NEUT % 60.2 % (42.8-82.8); PLATELET COUNT 192 K/MM3 (134-434); RBC 4.49 M/mm3 (3.60-5.2); RDW 13.7 % (11.6-15.6); WHITE BLOOD COUNT 7.2 K/mm3 (4.0-10.0)
[2019-10-26 14:05] LABS: INR 0.93 (0.83-1.09)
[2019-10-26 14:08] LABS: ACTIVATED PTT 31.5 SECONDS (25.2-36.5)
--- NOTE | 2019-10-26 14:26 | PDOC ---
Documentation entered by Nara Capone SCRIBE, acting as scribe for Treasure Connolly DO. Treasure Connolly DO: This documentation has been prepared by the Estelita ram Xhesika, SCRIBE, under my direction and personally reviewed by me in its entirety. I confirm that the documentation accurately reflects all work, treatment, procedures, and medical decision making performed by me. Attending Attestation - Resident Resident Name: Nitish Patterson - ED Attending Attestation I have performed the following: I have examined & evaluated the patient, The case was reviewed & discussed with the resident, I agree w/resident's findings & plan, Exceptions are as noted - HPI HPI: 10/26/19 14:18 The patient is a 69 year old female with a significant PMH of HTN, CAD s/p cardiac stents (2008), hyperlipidemia, COPD, asthma, aortic aneurysm, GERD, colitis, and hypothyroidism who presents to the emergency department for 3 days of midsternal/substernal chest pain radiating to bilateral shoulders and upper back. Pt states her symptoms are similar to her previous [place] she had back in 2008. Pt states she follows up Dr. Huitron however, has not seen him in a while but has an appointment on 11/27/19. Pt is currently chest pain free in the ED after having aspirin. The patient denies shortness of breath, headache and dizziness. Denies fever, chills, cough, nausea, vomiting, diarrhea and constipation. Denies dysuria, frequency, urgency and hematuria. Allergies: NKDA - Physicial Exam PE: 10/26/19 14:21 GENERAL: Awake, alert, and fully oriented, in no acute distress HEAD: No signs of trauma EYES: PERRLA, EOMI, sclera anicteric, conjunctiva clear ENT: Auricles normal inspection, hearing grossly normal, nares patent, oropharynx clear without exudates. Moist mucosa NECK: Normal ROM, supple, no lymphadenopathy, JVD, or masses LUNGS: Breath sounds equal, clear to auscultation bilaterally. No wheezes, and no crackles HEART: Regular rate and rhythm, normal S1 and S2, no murmurs, rubs or gallops ABDOMEN: Soft, nontender, normoactive bowel sounds. No guarding, no rebound. No masses EXTREMITIES: Normal range of motion, no edema. No clubbing or cyanosis. No cords, erythema, or tenderness NEUROLOGICAL: Cranial nerves II through XII grossly intact. Normal speech, normal gait SKIN: Warm, Dry, normal turgor, no rashes or lesions noted. - Medical Decision Making 10/26/19 14:25 a/p: 69yo female with cp today that radiates to both shoulders and her back -follows with dr. huitron and dr zacarias -pain waking her up at night -hx of cad with a stent placed 2008 -hx of aortic aneuysm -will send labs, ekg, cxr, cta -asa given -pt will need tele monitoring and cards eval -currently cp free 10/26/19 14:26 cbc reviewed and not acute chem and trop pending tortuous aorta on cxr 10/26/19 15:21 trop neg case discussed with anitra solano who accepts pt to service 10/26/19 17:42 pt with neg cta for dissection pt with atherosclerosis noted in the heart on ct Heart Score/ECG Review - ECG Intrepretation Comment:: 10/26/19 14:26 sinus at 85, L axis, nl interval, no acute st/t wave findings
[2019-10-26 14:27] LABS: ALBUMIN 4.1 g/dl (3.4-5.0); BILIRUBIN,TOTAL 0.5 mg/dL (0.2-1); BLOOD UREA NITROGEN 17.2 mg/dL (7-18); CALCIUM 9.6 mg/dL (8.5-10.1); CREATININE 0.9 mg/dL (0.55-1.3); N-TERMINAL BNP 20.6 pg/ml (5-125); POTASSIUM 4.1 mmol/L (3.5-5.1); TOT PROT 7.2 g/dl (6.4-8.2)
[2019-10-26] MEDS ORDERED: ACETAMINOPHEN 325 MG TABLET (FP) ONE (14:28)
[2019-10-26 14:41] LABS: URINE APPEARANCE CLEAR; URINE BILIRUBIN NEGATIVE (NEGATIVE); URINE COLOR YELLOW; URINE GLUCOSE (UA) NEGATIVE (NEGATIVE); URINE KETONE NEGATIVE (NEGATIVE); URINE LEUK ESTERASE NEGATIVE (NEGATIVE); URINE NITRITE NEGATIVE (NEGATIVE); URINE PROTEIN NEGATIVE (NEGATIVE); URINE UROBILINOGEN 0.2 mg/dL (0.2-1.0)
--- NOTE | 2019-10-26 16:11 | EKG ---
Test Reason : Blood Pressure : / mmHG Vent. Rate : 085 BPM Atrial Rate : 085 BPM P-R Int : 178 ms QRS Dur : 084 ms QT Int : 378 ms P-R-T Axes : 061 -31 055 degrees QTc Int : 449 ms NORMAL SINUS RHYTHM POSSIBLE LEFT ATRIAL ENLARGEMENT LEFT AXIS DEVIATION ABNORMAL ECG WHEN COMPARED WITH ECG OF 05-APR-2018 18:31, NO SIGNIFICANT CHANGE WAS FOUND Confirmed by LETA SANTOS MD ([id number]) on 10/26/2019 4:11:23 PM Referred By: Confirmed By:LETA SANTOS MD
--- NOTE | 2019-10-26 16:55 | HP ---
Admitting History and Physical - Primary Care Physician PCP: Brien Copeland - Admission Chief Complaint: chest pain History of Present Illness: 69 year old female with PMH CAD s/p stenting, HTN, HLD, COPD, asthma, aortic aneurysm ,GERD, colitis, hypothyroidism presents to the ED with chest pain. she states for the last 3-4 days the chest pain has been intermittent, substernal, radiates to right arm mostly, and also left arm at times, associated with numbness/tingling, and nausea. she states the pain wakes her up at night, she takes her pepcid at night so she knows this is a different pain then acid reflux. she denies fevers/chills, vomiting, diarrhea. History Source: Patient Limitations to Obtaining History: No Limitations - Past Medical History Cardiovascular: Yes: Aneurysm, CAD (S/P STENTING LAST CATH 11/10 [facility]), HTN, Hyperlipdemia Pulmonary: Yes: Asthma, COPD, Sleep Apnea Psych: Yes: Depression Musculoskeletal: Yes: Osteoarthritis - Past Surgical History Past Surgical History: Yes: Appendectomy, Hysterectomy, Joint Replacement, Tonsillectomy - Smoking History Smoking history: Former smoker Have you smoked in the past 12 months: No Aproximately how many cigarettes per day: 0 If you are a former smoker, when did you quit?: 17 YRS - Alcohol/Substance Use Hx Alcohol Use: No History of Substance Use: reports: None - Social History ADL: Independent History of Recent Travel: No Home Medications - Allergies Allergies/Adverse Reactions: Allergies Allergy/AdvReac Type Severity Reaction Status Date / Time No Known Drug Allergies Allergy Verified 10/26/19 11:51 FRAGRANCES Allergy Severe RESPIRATORY Uncoded 10/26/19 11:51 DISTRESS - Home Medications Home Medications: Ambulatory Orders Famotidine [Pepcid] 20 mg PO BID 10/05/14 Rosuvastatin Calcium [Crestor] 5 mg PO HS 10/05/14 Cyanocobalamin Vit B-12 Inj. [Vitamin B12 Injection -] 1,000 mcg IM WEEKLY 06/27 Diltiazem HCl [Diltiazem 24Hr ER (Cd)] 240 mg PO DAILY 06/27/15 Aspirin [ASA -] 81 mg PO DAILY #0 tab.chew 07/01/16 Alprazolam [Xanax Xr] 1 mg PO PRN 10/22/16 Primidone 50 mg PO BID 10/22/16 Diphenhydramine HCl [Benadryl Capsule -] 25 mg PO Q6H PRN 05/26/17 Ergocalciferol [Vitamin D2] 50,000 unit PO WEEKLY 05/26/17 Ranolazine [Ranexa] 500 mg PO BID 05/26/17 Tiotropium [place] [Spiriva] 1 inh IH DAILY 05/26/17 Budesonide/Formeterol Fumarate [SYMBICORT 160/4.5mcg -] 1 inh PO BID 10/26/19 Gabapentin 100 mg PO DAILY 10/26/19 Ketorolac 0.5% Eye Drop 1 drop OP ASDIR 10/26/19 Oxycodone HCl/Acetaminophen [Oxycodone-Acetaminophen 5-325] 1 tab PO BID PRN Family Medical History Family History: Unable to Obtain Review of Systems - Review of Systems Constitutional: reports: No Symptoms Eyes: reports: No Symptoms HENT: reports: No Symptoms Neck: reports: No Symptoms Cardiovascular: reports: Chest Pain Respiratory: reports: No Symptoms Gastrointestinal: reports: No Symptoms Genitourinary: reports: No Symptoms Breasts: reports: No Symptoms Reported Musculoskeletal: reports: No Symptoms Integumentary: reports: No Symptoms Neurological: reports: Numbness, Parasthesia Endocrine: reports: No Symptoms Hematology/Lymphatic: reports: No Symptoms Psychiatric: reports: No Symptoms Physical Examination Vital Signs: Vital Signs Temperature 98.3 F 10/26/19 12:00 Pulse Rate 90 10/26/19 14:30 Respiratory Rate 20 10/26/19 14:30 Blood Pressure 111/90 10/26/19 14:30 O2 Sat by Pulse Oximetry (%) 97 10/26/19 15:00 Constitutional: Yes: Well Nourished, No Distress HENT: Yes: Atraumatic, Normocephalic Neck: Yes: Supple Cardiovascular: Yes: Regular Rate and Rhythm Respiratory: Yes: Regular, CTA Bilaterally Gastrointestinal: Yes: Normal Bowel Sounds, Soft Musculoskeletal: Yes: WNL Extremities: Yes: WNL Integumentary: Yes: WNL Neurological: Yes: Alert, Oriented Labs: CBC, BMP 10/26/19 13:27 10/26/19 13:27 Problem List - Problems (1) Chest pain Assessment/Plan: cardiology consult tele monitoring trend trop serial ekg asa/crestor trop/ck x1 neg Code(s): R07.9 - CHEST PAIN, UNSPECIFIED (2) CAD (coronary artery disease) Assessment/Plan: cardiology consult resume home meds Code(s): I25.10 - ATHSCL HEART DISEASE OF [place] CORONARY ARTERY W/O ANG PCTRS (3) GERD (gastroesophageal reflux disease) Assessment/Plan: cont home pepcid Code(s): K21.9 - GASTRO-ESOPHAGEAL REFLUX DISEASE WITHOUT ESOPHAGITIS Qualifiers: (4) HLD (hyperlipidemia) Assessment/Plan: continue crestor Code(s): E78.5 - HYPERLIPIDEMIA, UNSPECIFIED (5) HTN (hypertension) Assessment/Plan: cont home meds monitor bp Code(s): I10 - ESSENTIAL (PRIMARY) HYPERTENSION (6) Hypothyroidism Assessment/Plan: not on meds? Code(s): E03.9 - HYPOTHYROIDISM, UNSPECIFIED Qualifiers: (7) Osteoarthritis of left knee Code(s): M17.9 - OSTEOARTHRITIS OF KNEE, UNSPECIFIED
[2019-10-26] MEDS: D5-1/2NS+20 MEQ KCL - 20 MEQ/1,000 ML INFUS.BAG IV SCH ×2 (17:30→21:14)
[2019-10-26] MEDS ORDERED: HEPARIN NA (PORCINE) 5,000 UNITS/ML 1ML VIAL ONE (21:49)
[2019-10-26] MEDS ORDERED: FAMOTIDINE 20 MG TABLET ONE (21:50)
[2019-10-26] MEDS: HEPARIN NA (PORCINE) 5,000 UNITS/ML 1ML VIAL SQ SCH (22:51)
[2019-10-26] MEDS: FAMOTIDINE 20 MG TABLET PO SCH (22:51)
[2019-10-27] MEDS: RANOLAZINE E.R. 500 MG TABLET (FP) PO SCH ×3 (00:29→21:20)
[2019-10-27] MEDS ORDERED: CYCLOBENZAPRINE HCL 10 MG TABLET (FP) PO SCH ×2 (00:30→22:00)
[2019-10-27] MEDS: ROSUVASTATIN CA 5 MG TABLET (FP) PO SCH ×2 (00:46→21:26)
[2019-10-27] MEDS: diphenhydrAMINE HCL 25 MG CAPSULE (FP) PO PRN ×2 (00:46→21:26)
[2019-10-27] MEDS: PRIMIDONE 50 MG TABLET PO SCH ×3 (00:46→21:27)
[2019-10-27 01:04] VITALS: BMI 35.3
[2019-10-27 06:52] LABS: BASO % 0.5 % (0-2.0); EOS % 2.5 % (0-4.5); HEMATOCRIT 38.6 % (32.4-45.2); LYMPH % 34.8 % (8-40); MCH 31.7 pg (25.7-33.7); MCHC 33.7 g/dl (32.0-36.0); MEAN CELL VOLUME 94.1 fl (80-96); MEAN PLT VOLUME 8.4 fl (7.5-11.1); MONO % 8.7 % (3.8-10.2); NEUT % 53.5 % (42.8-82.8); PLATELET COUNT 174 K/MM3 (134-434); RBC 4.11 M/mm3 (3.60-5.2); RDW 13.5 % (11.6-15.6); WHITE BLOOD COUNT 4.8 K/mm3 (4.0-10.0)
[2019-10-27 07:29] LABS: ALBUMIN 3.7 g/dl (3.4-5.0); ALK PHOS 60 U/L (45-117); ANION GAP 6 MMOL/L (8-16); BILIRUBIN,TOTAL 0.7 mg/dL (0.2-1); BLOOD UREA NITROGEN 15.3 mg/dL (7-18); CALCIUM 8.5 mg/dL (8.5-10.1); CHLORIDE 110 mmol/L (98-107); CHOLESTEROL 194 mg/dL (50-200); CO2 24 mmol/L (21-32); GLUCOSE,RANDOM 96 mg/dL (74-106); HDL CHOLESTEROL 54 mg/dL (40-60); LDL CHOLESTEROL (ONLY SJRH) 111 mg/dL (5-100); N-TERMINAL BNP 10.2 pg/ml (5-125); POTASSIUM 3.8 mmol/L (3.5-5.1); SGOT/AST 16 U/L (15-37); SGPT/ALT 25 U/L (13-61); SODIUM 141 mmol/L (136-145); TOT PROT 6.4 g/dl (6.4-8.2); TRIGLYCERIDES 180 mg/dL (0-150)
--- NOTE | 2019-10-27 08:16 | PN ---
Progress Note, Physician Chief Complaint: Chest Pain CAD History of Present Illness: Previous notes and events reviewed awake and alert NAD complain of mid chest pain, non-radiating denies dizziness or palpitations troponin neg x 3 - Current Medication List Current Medications: Active Medications Aspirin (Asa -) 81 mg PO DAILY [facility] Cyclobenzaprine HCl (Flexeril -) 5 mg PO HS [facility] Cyclobenzaprine HCl (Flexeril -) 5 mg PO ONCE [facility] Last Admin: 10/27/19 00:46 Dose: 5 mg Diltiazem HCl (Cardizem Cd -) 240 mg PO DAILY [facility] Diphenhydramine HCl (Benadryl -) 25 mg PO Q6H PRN PRN Reason: ALLERGY Last Admin: 10/27/19 00:46 Dose: 25 mg Famotidine (Pepcid -) 20 mg PO BID [facility] Last Admin: 10/26/19 22:51 Dose: 20 mg Gabapentin (Neurontin -) 100 mg PO DAILY [facility] Heparin Sodium (Porcine) (Heparin -) 5,000 unit SQ BID [facility] Last Admin: 10/26/19 22:51 Dose: 5,000 unit Potassium Chloride/Dextrose/Sod Cl (D5-1/2ns+20 Meq Kcl -) 20 meq in 1,000 mls @ 42 mls/hr IV ASDIR [facility] Last Admin: 10/26/19 21:14 Dose: 42 mls/hr Primidone (Mysoline -) 50 mg PO BID [facility] Last Admin: 10/27/19 00:46 Dose: 25 mg Ranolazine (Ranexa -) 500 mg PO BID [facility] Last Admin: 10/27/19 00:29 Dose: Not Given Rosuvastatin Calcium (Crestor -) 5 mg PO [facility] Last Admin: 10/27/19 00:46 Dose: 5 mg - Objective Vital Signs: Vital Signs Temperature 98.3 F 10/27/19 06:00 Pulse Rate 85 10/27/19 06:00 Respiratory Rate 20 10/27/19 06:00 Blood Pressure 112/71 10/27/19 06:00 O2 Sat by Pulse Oximetry (%) 97 10/27/19 01:09 Constitutional: Yes: No Distress, Calm Eyes: Yes: Conjunctiva Clear HENT: Yes: Atraumatic Cardiovascular: Yes: Regular Rate and Rhythm Respiratory: Yes: Regular, Diminished Gastrointestinal: Yes: Normal Bowel Sounds, Soft, Tenderness (llq) Musculoskeletal: Yes: WNL Extremities: Yes: WNL Edema: No Neurological: Yes: Alert, Oriented Psychiatric: Yes: Alert, Oriented Labs: CBC, BMP 10/27/19 05:35 10/27/19 05:35 INR, PTT INR 0.93 (0.83-1.09) 10/26/19 13:27 Problem List - Problems (1) Chest pain Assessment/Plan: Cardiology consult Tele monitoring Troponin neg x 3 Echocardiogram shows EF 55-60%, no pericardial effusion pending Stress Test Code(s): R07.9 - CHEST PAIN, UNSPECIFIED Qualifiers: Chest pain type: unspecified Qualified Code(s): R07.9 - Chest pain, unspecified (2) CAD (coronary artery disease) Assessment/Plan: Cardiology consult stent placed 2008 at [facility] Aspirin Code(s): I25.10 - ATHSCL HEART DISEASE OF [place] CORONARY ARTERY W/O ANG PCTRS (3) GERD (gastroesophageal reflux disease) Assessment/Plan: Famotidine Code(s): K21.9 - GASTRO-ESOPHAGEAL REFLUX DISEASE WITHOUT ESOPHAGITIS Qualifiers: (4) HLD (hyperlipidemia) Assessment/Plan: Crestor Code(s): E78.5 - HYPERLIPIDEMIA, UNSPECIFIED (5) HTN (hypertension) Assessment/Plan: Cardizem low Na diet Code(s): I10 - ESSENTIAL (PRIMARY) HYPERTENSION (6) Hypothyroidism Assessment/Plan: TSH 0.92 Endocrinology consulted no home medication Code(s): E03.9 - HYPOTHYROIDISM, UNSPECIFIED Qualifiers: Assessment/Plan see problem list dvt ppx
--- NOTE | 2019-10-27 10:30 | ECHO ---
Name: SALVADOR ROSA Estrella Exam:Adult Echocardiogram Study Date: 10/27/2019 08:40 AM Age: 69 yrs Reason For Study: Chest pain Height: 63 in Weight: 196 lb BSA: 1.9 m2 MMode/2D Measurements & Calculations LVOT diam: 2.1 cm LVLd ap4: 6.4 cm EDV(MOD-sp4): 66.1 ml LVLs ap4: 5.2 cm ESV(MOD-sp4): 27.9 ml SV(MOD-sp4): 38.2 ml LAV (MOD-bp): 46.7 ml RV S Kishan: 15.2 cm/sec Doppler Measurements & Calculations MV E max kishan: 55.8 cm/sec Ao V2 max: 116.7 cm/sec MV A max kishan: 84.9 cm/sec Ao max P.4 mmHg MV E/A: 0.66 MV dec time: 0.08 sec NAUN(V,D): 2.4 cm2 LV V1 max P.5 mmHg PA V2 max: 105.9 cm/sec LV V1 max: 79.5 cm/sec PA max P.5 mmHg Med Peak E' Kishan: 8.3 cm/sec Med E/e': 6.7 Lat Peak E' Kishan: 8.3 cm/sec Lat E/e': 6.7 Left Ventricle Left ventricular systolic function is normal. Ejection Fraction = 55-60%. The transmitral spectral Do ppler flow pattern is suggestive of impaired LV relaxation. Right Ventricle The right ventricle is normal in size and function. Atria Borderline left atrial enlargement. Right atrial size is normal. Mitral Valve The mitral valve is normal in structure and function. There is no mitral valve stenosis. There is tra ce mitral regurgitation. Tricuspid Valve The tricuspid valve is normal in structure and function. There is trace tricuspid regurgitation. Aortic Valve The aortic valve opens well. No hemodynamically significant valvular aortic stenosis. No aortic regur gitation is present. Pulmonic Valve The pulmonic valve is not well seen, but is grossly normal. There is no pulmonic valvular stenosis. Great Vessels Mild aortic root dilatation. The aortic root measures 3.9cm, stable from prior studies. Moderately di lated inferior vena cava. Pericardium/Pleura There is no pericardial effusion. Interpretation Summary Left ventricular systolic function is normal. Ejection Fraction = 55-60%. The transmitral spectral Doppler flow pattern is suggestive of impaired LV relaxation. The right ventricle is normal in size and function. Mild aortic root dilatation. The aortic root measures 3.9cm, stable from prior studies. There is no pericardial effusion. Moderately dilated inferior vena cava MD Coleman *Elana 10/27/2019 10:30 AM
[2019-10-27] MEDS: GABAPENTIN 100 MG CAPSULE PO SCH (10:33)
[2019-10-27] MEDS: ASPIRIN 81 MG CHEWABLE TABLETS PO SCH (10:33)
[2019-10-27] MEDS: FAMOTIDINE 20 MG TABLET PO SCH ×2 (10:33→21:26)
[2019-10-27] MEDS: HEPARIN NA (PORCINE) 5,000 UNITS/ML 1ML VIAL SQ SCH ×2 (10:34→21:26)
--- NOTE | 2019-10-27 11:04 | CON.CARD ---
Consult Consult Specialty:: Cardiology Referred by:: Dr. Wellington Reason for Consultation:: chest pain - History of Present Illness Chief Complaint: chest pain History of Present Illness: 69 F HTN, chronic diastolic CHF, CAD s/p PCI, stable mild ascending aortic aneurysm of 4cm , depression, anxiety, presents to the ED with chest pain. She states for the last 3-4 days the chest pain has been intermittent, substernal, radiates to right arm mostly, and also left arm at times, associated with numbness/tingling, and nausea. TnI negative x 3 CTA chest with no sig change in aortic dilatation. ECG without acute changes. O2 sat 97% RA - History Source History Provided By: Patient - Past Medical History Cardio/Vascular: Yes: Aneurysm, CAD (S/P STENTING LAST CATH 11/10 [facility]), HTN , Hyperlipdemia Pulmonary: Yes: Asthma, COPD, Sleep Apnea ...: No Psych: Yes: Depression Musculoskeletal: Yes: Osteoarthritis - Past Surgical History Past Surgical History: Yes: Appendectomy, Hysterectomy, Joint Replacement, Tonsillectomy - Alcohol/Substance Use Hx Alcohol Use: No (socially) History of Substance Use: reports: None - Smoking History Smoking history: Former smoker Have you smoked in the past 12 months: No Aproximately how many cigarettes per day: 10 If you are a former smoker, when did you quit?: 2009 - Social History Usual Living Arrangement: Alone ADL: Independent History of Recent Travel: No Home Medications - Allergies Allergies/Adverse Reactions: Allergies Allergy/AdvReac Type Severity Reaction Status Date / Time No Known Drug Allergies Allergy Verified 10/26/19 11:51 FRAGRANCES Allergy Severe RESPIRATORY Uncoded 10/26/19 11:51 DISTRESS - Home Medications Home Medications: Ambulatory Orders Famotidine [Pepcid] 20 mg PO BID 10/05/14 Rosuvastatin Calcium [Crestor] 5 mg PO HS 10/05/14 Cyanocobalamin Vit B-12 Inj. [Vitamin B12 Injection -] 1,000 mcg IM WEEKLY 06/27 Diltiazem HCl [Diltiazem 24Hr ER (Cd)] 240 mg PO DAILY 06/27/15 Aspirin [ASA -] 81 mg PO DAILY #0 tab.chew 07/01/16 Primidone 25 mg PO BID 10/22/16 Diphenhydramine HCl [Benadryl Capsule -] 25 mg PO Q6H PRN 05/26/17 Ergocalciferol [Vitamin D2] 50,000 unit PO WEEKLY 05/26/17 Ranolazine [Ranexa] 500 mg PO DAILY 05/26/17 Tiotropium [place] [Spiriva] 1 inh IH DAILY 05/26/17 Gabapentin 100 mg PO DAILY PRN 10/26/19 Ketorolac 0.5% Eye Drop 1 drop OS BID 10/26/19 Albuterol 2.5/Ipratropium 0.5 [Duoneb -] 1 neb NEB Q4H PRN 10/27/19 Alprazolam [Xanax] 0.5 mg PO BID PRN 10/27/19 Budesonide/Formeterol Fumarate [SYMBICORT 160/4.5mcg -] 1 inh PO BID 10/27/19 Cyclobenzaprine HCl [Flexeril -] 5 mg PO HS 10/27/19 Paroxetine HCl [Paxil Cr] 25 mg PO DAILY 10/27/19 Trazodone HCl 50 mg PO HS 10/27/19 Family Medical History Family History: Unremarkable (not pertinent to this presentation) Review of Systems - Review of Systems Constitutional: reports: No Symptoms Eyes: reports: No Symptoms HENT: reports: No Symptoms Neck: reports: No Symptoms Cardiovascular: reports: Chest Pain Respiratory: reports: Exercise Intolerance (chronic) Gastrointestinal: reports: No Symptoms Genitourinary: reports: No Symptoms Breasts: reports: No Symptoms Reported Musculoskeletal: reports: No Symptoms Integumentary: reports: No Symptoms Neurological: reports: No Symptoms Endocrine: reports: No Symptoms Hematology/Lymphatic: reports: No Symptoms Psychiatric: reports: No Symptoms - Risk Factors Known Risk Factors: Yes: Hypertension, Other (Known CAD) Vital Signs: Vital Signs Temperature 98.3 F 10/27/19 08:20 Pulse Rate 96 H 10/27/19 08:20 Respiratory Rate 19 10/27/19 08:20 Blood Pressure 117/86 10/27/19 08:20 O2 Sat by Pulse Oximetry (%) 97 10/27/19 01:09 Constitutional: Yes: No Distress, Calm Eyes: Yes: Conjunctiva Clear Neck: Yes: Trachea Midline Respiratory: Yes: CTA Bilaterally Gastrointestinal: Yes: Soft (NT) Cardiovascular: Yes: Regular Rate and Rhythm JVD: No Carotid Bruit: No PMI: Non-Displaced Heart Sounds: Yes: S1, S2 (rrr,) Edema: No Peripheral Pulses WNL: Yes Neurological: Yes: Alert, Oriented ...Motor Strength: WNL - Other Data Labs, Other Data: CBC, BMP 10/27/19 05:35 10/27/19 05:35 INR, PTT INR 0.93 (0.83-1.09) 10/26/19 13:27 Troponin, BNP 10/26/19 10/26/19 10/26/19 13:27 13:27 16:55 Troponin I < 0.02 < 0.02 B-Natriuretic Peptide 20.6 10/27/19 05:35 Troponin I < 0.02 B-Natriuretic Peptide 10.2 Troponin, BNP 10/26/19 10/26/19 10/26/19 13:27 13:27 16:55 Troponin I < 0.02 < 0.02 B-Natriuretic Peptide 20.6 10/27/19 05:35 Troponin I < 0.02 B-Natriuretic Peptide 10.2 Echo: Report Reviewed Prior Cardiac Procedures: PTCA with Stent Ejection Fraction %: LVEF > or = 40 % Imaging - Results Cat Scan: Report Reviewed EKG: Image Reviewed Assessment/Plan IMP: Known CAD s/p PCI (> 1 year) Chronic HTN, hypertensive heart dz, chronic diastolic CHF Stable small 4cm ascending aortic aneurysm COPD Chronic depression and anxiety Chest pain with mixed featuresL serial enzymes negative/ecg without acute changes REC: 1. CTA report reviewed, no change in small aortic dilatation- unlikely cause of pain 2. Echo with normal EF and no effusion 3. Lexiscan MPI today normal perfusion, no ischemia, normal EF with no evidence of transient ischemic dilatation. The cardiac evaluation is completed and is negative. Patient's chest pain is non-anginal in character. She may be discharged home from [facility] with outpt f/u/ D/C tele
--- NOTE | 2019-10-27 11:12 | EKG ---
Test Reason : Blood Pressure : / mmHG Vent. Rate : 081 BPM Atrial Rate : 081 BPM P-R Int : 178 ms QRS Dur : 082 ms QT Int : 424 ms P-R-T Axes : 057 -34 030 degrees QTc Int : 492 ms NORMAL SINUS RHYTHM LEFT AXIS DEVIATION PROLONGED QT ABNORMAL ECG WHEN COMPARED WITH ECG OF 26-OCT-2019 11:50, NO SIGNIFICANT CHANGE WAS FOUND Confirmed by VENANCIO MANN MD ([id number]) on 10/27/2019 11:12:30 AM Referred By: Confirmed By:VENANCIO MANN MD
[2019-10-27] MEDS ORDERED: REGADENOSON 0.4 MG/5 ML PRE-FILLED SYRINGE IVPUSH ONE ×2 (13:29→13:30)
[2019-10-27 17:09] LABS: COCAINE, UR NEGATIVE ng/ml (CUTOFF=300); METHADONE, UR NEGATIVE ng/ml (CUTOFF=300); OPIATES, URI NEGATIVE ng/ml (CUTOFF=300); PHENCYCLIDINE,URINE NEGATIVE ng/ml (CUTOFF=25); URINE BARBITURATES NEGATIVE ng/ml (CUTOFF=200)
[2019-10-27 17:10] LABS: URINE AMPHETAMINES NEGATIVE ng/ml (CUTOFF=500)
[2019-10-27 17:27] LABS: URINE BENZODIAZEPINES POSITIVE ng/ml (CUTOFF=200)
--- NOTE | 2019-10-27 17:36 | CONSULT ---
Consult Consult Specialty:: ENDOCRINE Referred by:: CEDRIC SEGAL Reason for Consultation:: THYROIDITIS - History of Present Illness Chief Complaint: CHEST PAIN ANXIETY History of Present Illness: 69 year old female with PMH Thyroidits,CAD s/p stenting, HTN, HLD, COPD, asthma, aortic aneurysm ,GERD, colitis, presented with chest pain. substernal that was severe and unrelieved with rest,had dyspnea and diaphoretic.she has weight gain,back pain and difficulty sleeping at night. she denies nausea and vomiting. - Past Medical History Cardio/Vascular: Yes: Aneurysm, CAD (S/P STENTING LAST CATH 11/10 [facility]), HTN , Hyperlipdemia Pulmonary: Yes: Asthma, COPD, Sleep Apnea ...: No Psych: Yes: Depression Musculoskeletal: Yes: Osteoarthritis - Past Surgical History Past Surgical History: Yes: Appendectomy, Hysterectomy, Joint Replacement, Tonsillectomy - Alcohol/Substance Use Hx Alcohol Use: No (socially) History of Substance Use: reports: None - Smoking History Smoking history: Former smoker Have you smoked in the past 12 months: No Aproximately how many cigarettes per day: 10 If you are a former smoker, when did you quit?: 2009 - Social History Usual Living Arrangement: Alone ADL: Independent History of Recent Travel: No Home Medications - Allergies Allergies/Adverse Reactions: Allergies Allergy/AdvReac Type Severity Reaction Status Date / Time No Known Drug Allergies Allergy Verified 10/26/19 11:51 FRAGRANCES Allergy Severe RESPIRATORY Uncoded 10/26/19 11:51 DISTRESS - Home Medications Home Medications: Ambulatory Orders Famotidine [Pepcid] 20 mg PO BID 10/05/14 Rosuvastatin Calcium [Crestor] 5 mg PO HS 10/05/14 Cyanocobalamin Vit B-12 Inj. [Vitamin B12 Injection -] 1,000 mcg IM WEEKLY 06/27 Diltiazem HCl [Diltiazem 24Hr ER (Cd)] 240 mg PO DAILY 06/27/15 Aspirin [ASA -] 81 mg PO DAILY #0 tab.chew 07/01/16 Primidone 25 mg PO BID 10/22/16 Diphenhydramine HCl [Benadryl Capsule -] 25 mg PO Q6H PRN 05/26/17 Ergocalciferol [Vitamin D2] 50,000 unit PO WEEKLY 05/26/17 Ranolazine [Ranexa] 500 mg PO DAILY 05/26/17 Tiotropium [place] [Spiriva] 1 inh IH DAILY 05/26/17 Gabapentin 100 mg PO DAILY PRN 10/26/19 Ketorolac 0.5% Eye Drop 1 drop OS BID 10/26/19 Albuterol 2.5/Ipratropium 0.5 [Duoneb -] 1 neb NEB Q4H PRN 10/27/19 Alprazolam [Xanax] 0.5 mg PO BID PRN 10/27/19 Budesonide/Formeterol Fumarate [SYMBICORT 160/4.5mcg -] 1 inh PO BID 10/27/19 Cyclobenzaprine HCl [Flexeril -] 5 mg PO HS 10/27/19 Paroxetine HCl [Paxil Cr] 25 mg PO DAILY 10/27/19 Trazodone HCl 50 mg PO HS 10/27/19 Review of Systems - Review of Systems Constitutional: reports: Lethargy, Weakness Eyes: reports: No Symptoms HENT: reports: No Symptoms Neck: reports: No Symptoms Cardiovascular: reports: Shortness of Breath Respiratory: reports: Cough, Exercise Intolerance, SOB, SOB on Exertion Gastrointestinal: reports: Bloating Genitourinary: reports: No Symptoms Breasts: reports: No Symptoms Reported Musculoskeletal: reports: Extremity Pain, Joint Swelling, Muscle Cramps, Muscle Weakness Integumentary: reports: No Symptoms Neurological: reports: Numbness, Weakness Endocrine: reports: Unexplained Weight Gain Physical Exam Vital Signs: Vital Signs Temperature 97.9 F 10/27/19 15:49 Pulse Rate 107 H 10/27/19 15:49 Respiratory Rate 20 10/27/19 15:49 Blood Pressure 127/83 10/27/19 15:49 O2 Sat by Pulse Oximetry (%) 98 10/27/19 09:00 Constitutional: Yes: Anxious Eyes: Yes: EOM Intact HENT: Yes: Normocephalic Neck: Yes: Trachea Midline Cardiovascular: Yes: Tachycardia Respiratory: Yes: Regular, Tachypnea Gastrointestinal: Yes: Normal Bowel Sounds ...Rectal Exam: Yes: Deferred Renal/: Yes: WNL Musculoskeletal: Yes: Back Pain, Joint Stiffness, Joint Swelling, Muscle Weakness Edema: No Neurological: Yes: Alert, Oriented Labs: CBC, BMP 10/27/19 05:35 10/27/19 05:35 Problem List - Problems (1) Chest pain Problems reviewed: Yes Code(s): R07.9 - CHEST PAIN, UNSPECIFIED Qualifiers: Chest pain type: unspecified Qualified Code(s): R07.9 - Chest pain, unspecified (2) Atypical chest pain Problems reviewed: Yes Code(s): R07.89 - OTHER CHEST PAIN (3) Back pain Problems reviewed: Yes Code(s): M54.9 - DORSALGIA, UNSPECIFIED (4) CAD (coronary artery disease) Code(s): I25.10 - ATHSCL HEART DISEASE OF [place] CORONARY ARTERY W/O ANG PCTRS (5) Chest pain at rest Code(s): R07.9 - CHEST PAIN, UNSPECIFIED (6) DM II (diabetes mellitus, type II), controlled Code(s): E11.9 - TYPE 2 DIABETES MELLITUS WITHOUT COMPLICATIONS Qualifiers: Diabetes mellitus complication detail: with neuropathic arthropathy (7) Dehydration Code(s): E86.0 - DEHYDRATION Assessment/Plan Current Active Problems anxiety depression Chest pain (Acute) thyroiditis penelope copd asthmatic htn hld Abnormal Lab Results 10/27/19 10/27/19 05:35 15:40 Chloride 110 H Anion Gap 6 L Triglycerides 180 H Total LDL Cholesterol 111 H Benzodiazepines Screen Positive A* plan; tsh free t4 follow up sonography neck outpatient
[2019-10-27] MEDS: D5-1/2NS+20 MEQ KCL - 20 MEQ/1,000 ML INFUS.BAG IV SCH (21:20)
[2019-10-27] MEDS ORDERED: PT OWN MED DRAWER 7, Y5N ONE (21:22)
[2019-10-28 06:45] LABS: HEMATOCRIT 39.3 % (32.4-45.2); HEMOGLOBIN 13.1 GM/dL (10.7-15.3); MCH 31.4 pg (25.7-33.7); MCHC 33.4 g/dl (32.0-36.0); MEAN CELL VOLUME 94.1 fl (80-96); MEAN PLT VOLUME 8.3 fl (7.5-11.1); PLATELET COUNT 187 K/MM3 (134-434); RBC 4.18 M/mm3 (3.60-5.2); RDW 13.3 % (11.6-15.6); WHITE BLOOD COUNT 4.4 K/mm3 (4.0-10.0)
[2019-10-28 07:04] LABS: ALBUMIN 3.7 g/dl (3.4-5.0); BILIRUBIN,TOTAL 0.4 mg/dL (0.2-1); BLOOD UREA NITROGEN 14.1 mg/dL (7-18); CALCIUM 8.9 mg/dL (8.5-10.1); POTASSIUM 4.3 mmol/L (3.5-5.1); TOT PROT 6.4 g/dl (6.4-8.2)
[2019-10-28] MEDS ORDERED: PT OWN MED DRAWER 7, Y5N ONE (09:41)
[2019-10-28] MEDS: RANOLAZINE E.R. 500 MG TABLET (FP) PO SCH (09:50)
[2019-10-28] MEDS: PRIMIDONE 50 MG TABLET PO SCH (09:50)
[2019-10-28] MEDS: HEPARIN NA (PORCINE) 5,000 UNITS/ML 1ML VIAL SQ SCH (09:50)
[2019-10-28] MEDS: ASPIRIN 81 MG CHEWABLE TABLETS PO SCH (09:50)
[2019-10-28] MEDS: GABAPENTIN 100 MG CAPSULE PO SCH (09:50)
[2019-10-28] MEDS: FAMOTIDINE 20 MG TABLET PO SCH (09:50)
--- NOTE | 2019-10-28 10:01 | PN ---
Progress Note, Physician Chief Complaint: No further CP - Current Medication List Current Medications: Active Medications Aspirin (Asa -) 81 mg PO DAILY [facility] Last Admin: 10/28/19 09:50 Dose: 81 mg Cyclobenzaprine HCl (Flexeril -) 5 mg PO HS [facility] Last Admin: 10/27/19 21:27 Dose: 5 mg Diltiazem HCl (Cardizem Cd -) 240 mg PO DAILY [facility] Last Admin: 10/28/19 09:50 Dose: 240 mg Diphenhydramine HCl (Benadryl -) 25 mg PO Q6H PRN PRN Reason: ALLERGY Last Admin: 10/27/19 21:26 Dose: 25 mg Famotidine (Pepcid -) 20 mg PO BID [facility] Last Admin: 10/28/19 09:50 Dose: 20 mg Gabapentin (Neurontin -) 100 mg PO DAILY [facility] Last Admin: 10/28/19 09:50 Dose: Not Given Heparin Sodium (Porcine) (Heparin -) 5,000 unit SQ BID [facility] Last Admin: 10/28/19 09:50 Dose: Not Given Potassium Chloride/Dextrose/Sod Cl (D5-1/2ns+20 Meq Kcl -) 20 meq in 1,000 mls @ 42 mls/hr IV ASDIR [facility] Last Admin: 10/27/19 21:20 Dose: Not Given Primidone (Mysoline -) 50 mg PO BID [facility] Last Admin: 10/28/19 09:50 Dose: Not Given Ranolazine (Ranexa -) 500 mg PO BID [facility] Last Admin: 10/28/19 09:50 Dose: 500 mg Rosuvastatin Calcium (Crestor -) 5 mg PO [facility] Last Admin: 10/27/19 21:26 Dose: 5 mg - Objective Vital Signs: Vital Signs Temperature 98.0 F 10/28/19 06:00 Pulse Rate 87 10/28/19 06:00 Respiratory Rate 20 10/28/19 06:00 Blood Pressure 107/74 10/28/19 06:00 O2 Sat by Pulse Oximetry (%) 98 10/27/19 21:00 Constitutional: Yes: Calm Cardiovascular: Yes: Regular Rate and Rhythm Respiratory: Yes: CTA Bilaterally Gastrointestinal: Yes: Soft Edema: No Neurological: Yes: Alert, Oriented Labs: CBC, BMP 10/28/19 05:54 10/28/19 05:54 INR, PTT INR 0.93 (0.83-1.09) 10/26/19 13:27 Assessment/Plan IMP: Known CAD s/p PCI (> 1 year) Chronic HTN, hypertensive heart dz, chronic diastolic CHF Stable small 4cm ascending aortic aneurysm COPD Chronic depression and anxiety Chest pain with mixed featuresL serial enzymes negative/ecg without acute changes REC: 1. CTA report reviewed, no change in small aortic dilatation- unlikely cause of pain 2. Echo with normal EF and no effusion 3. Lexiscan MPI normal perfusion, no ischemia, normal EF with no evidence of transient ischemic dilatation. The cardiac evaluation is completed and is negative. Patient's chest pain is non-anginal in character. She may be discharged home from [facility] with outpt f/u/ D/C tele
--- NOTE | 2019-10-28 10:11 | DS ---
Physical Examination Vital Signs: Vital Signs Temperature 98.0 F 10/28/19 06:00 Pulse Rate 87 10/28/19 06:00 Respiratory Rate 20 10/28/19 06:00 Blood Pressure 107/74 10/28/19 06:00 O2 Sat by Pulse Oximetry (%) 98 10/27/19 21:00 Findings/Remarks: STRESS TEST NORMAL CLEARED BY CARDIOLOGY TO GO HOME Constitutional: Yes: No Distress Eyes: Yes: WNL HENT: Yes: WNL Neck: Yes: WNL Cardiovascular: Yes: WNL Respiratory: Yes: WNL Gastrointestinal: Yes: WNL Renal/: Yes: WNL Musculoskeletal: Yes: WNL Extremities: Yes: WNL Edema: No Peripheral Pulses WNL: Yes Integumentary: Yes: WNL Wound/Incision: Yes: Clean/Dry Neurological: Yes: WNL ...Motor Strength: WNL Psychiatric: Yes: WNL Labs: CBC, BMP 10/28/19 05:54 10/28/19 05:54 Discharge Summary Problems reviewed: Yes Reason For Visit: CHEST PAIN Current Active Problems Chest pain (Acute) Procedures: Principal: STRESS TEST Hospital Course: ADMITTED ATYPICAL CHEST PAIN VS CARDIAC , STRESS TEST DONE NORMAL, F/U OUTPATIENT WITH PMD AND CARDIOLOGY Goals: SEE DR ALEXANDRA IN 1-2 WEEKS Condition: Stable - Instructions Diet, Activity, Other Instructions: LOW FAT LOW SODIUM LOW GLYCEMIC DIET PLEASE SEE [employer] AT DR DEJESUS OFFICE FOR LIFESTYLE CHANGES Referrals: Brien Copeland MD [Primary Care Provider] - Disposition: HOME - Home Medications Comprehensive Discharge Medication List: Ambulatory Orders Famotidine [Pepcid] 20 mg PO BID 10/05/14 Rosuvastatin [place] [Crestor] 5 mg PO HS 10/05/14 Cyanocobalamin Vit B-12 Inj. [Vitamin B12 Injection -] 1,000 mcg IM WEEKLY 06/27 Diltiazem HCl [Diltiazem 24Hr ER (Cd)] 240 mg PO DAILY 06/27/15 Aspirin [ASA -] 81 mg PO DAILY #0 tab.chew 07/01/16 Primidone 25 mg PO BID 10/22/16 Diphenhydramine HCl [Benadryl Capsule -] 25 mg PO Q6H PRN 05/26/17 Ergocalciferol [Vitamin D2] 50,000 unit PO WEEKLY 05/26/17 Ranolazine [Ranexa] 500 mg PO DAILY 05/26/17 Tiotropium [place] [Spiriva] 1 inh IH DAILY 05/26/17 Gabapentin 100 mg PO DAILY PRN 10/26/19 Ketorolac 0.5% Eye Drop 1 drop OS BID 10/26/19 Albuterol 2.5/Ipratropium 0.5 [Duoneb -] 1 neb NEB Q4H PRN 10/27/19 Alprazolam [Xanax] 0.5 mg PO BID PRN 10/27/19 Budesonide/Formeterol Fumarate [SYMBICORT 160/4.5mcg -] 1 inh PO BID 10/27/19 Cyclobenzaprine HCl [Flexeril -] 5 mg PO HS 10/27/19 Paroxetine HCl [Paxil Cr] 25 mg PO DAILY 10/27/19 Trazodone HCl 50 mg PO HS 10/27/19
[2019-10-28 11:07] VITALS: BP 119/83; PULSE 97; TEMP 97.6
== END 2019-10-28 11:51 | disposition home or self-care (01) | DRG 313 ==
LOC: JER 11:41 → JERBED 15:12 → OBSVTOIN 16:29 → J4S 23:39
PROVIDERS: ADMIT Family Medicine; ATTEND Family Medicine
DX: R07.89 Other chest pain (principal); I50.32 Chronic diastolic (congestive) heart failure; I25.10 Atherosclerotic heart disease of native coronary artery without angina pectoris; K21.9 Gastro-esophageal reflux disease without esophagitis; E78.5 Hyperlipidemia, unspecified; E03.9 Hypothyroidism, unspecified; M17.9 Osteoarthritis of knee, unspecified; I11.0 Hypertensive heart disease with heart failure; I71.2 Thoracic aortic aneurysm, without rupture; E06.3 Autoimmune thyroiditis; Z95.5 Presence of coronary angioplasty implant and graft; J44.9 Chronic obstructive pulmonary disease, unspecified; F41.8 Other specified anxiety disorders
CPT/HCPCS: 36415; 71045-TC-FY; 71275-TC; 74174-TC; 78452-TC; 80053; 80061; 80307; 81003; 82550; 83690; 83721; 83735; 83880; 84443; 84484; 85025; 85027; 85610; 85730; 93005; 93010; 93017; 93306-TC; 99285-25; A9502; G0378; J1644; J2785; Q9967

== ENCOUNTER 2020-10-16 11:03 | Emergency (ER) | payer OTHER ==
[2020-10-16 11:09] VITALS: BP 145/85; PULSE 94; TEMP 98; BMI 36.6
[2020-10-16] MEDS ORDERED: KETOROLAC TROMETHAMINE 30 MG/1 ML VIAL IM ONE (12:08)
[2020-10-16] MEDS ORDERED: diazePAM 5 MG TABLET PO ONE (12:08)
[2020-10-16] MEDS ORDERED: KETOROLAC TROMETHAMINE 30 MG/1 ML VIAL ONE (12:09)
[2020-10-16] MEDS ORDERED: diazePAM 5 MG TABLET ONE (12:10)
== END 2020-10-16 12:42 | disposition home or self-care (01) ==
LOC: JERFT 11:03
PROC: 3E023GC Introduction of Other Therapeutic Substance into Muscle, Percutaneous Approach (ICD-10-PCS; principal; 2020-10-16)
DX: M54.42 Lumbago with sciatica, left side (principal)
CPT/HCPCS: 99284-25

== ENCOUNTER 2021-06-11 13:44 | Inpatient (IN) | payer OTHER ==
[2021-06-05 17:00] VITALS: BMI 30.6
[2021-06-11] MEDS: ACETAMINOPHEN 1000 MG/100 ML VIAL IVPB ONE ×2 (11:50→14:23)
[~2021-06-11 13:44] MED LIST: ACETAMINOPHEN 1000 MG/100 ML VIAL IVPB ONE; ACETAMINOPHEN INJECTION 100 ML IVPB ONE; ALBUTEROL SO4 2.5/IPRATROPIUM 0.5 INH SOL 3 ML VIAL.NEB. NEB PRN; BUDESONIDE/FORMETEROL FUMARATE 160/4.5 mcg INHALER IH PRN; BUPIVACAINE HCL 50 ML ONE; BUPIVACAINE HCL/PF 0.5% (5MG/ML) 10 ML VIAL ONE; BUPIVACAINE LIPOSOME/PF (EXPAREL) 266 MG/20 ML VIAL ONE; CEFAZOLIN 2 GM in DEXTROSE 5%-WATER - 100 ML IVPB ONE; CELECOXIB 200 MG CAPSULE ONE; DEXAMETHASONE SOD PHOSPHATE 4 MG/1 ML VIAL ONE; GABAPENTIN 300 MG CAPSULE PO PRN; HYDROmorphone *PCA* 10MG/50ML DISP.SYRIN PCA SCH; HYDROmorphone HCL/PF 1 MG/ML VIAL IVPB ONE; LACTATED RINGERS SOLUTION 1,000 ML IV SCH; MAG HYDROX/AL HYDROX/SIMETH 30 ML UNIT-DOSE CUP PO PRN; MAGNESIUM HYDROX 2400MG/30ML ORAL SUSPENSION 30 ML CUP PO PRN; MIDAZOLAM HCL 2 MG/2 ML SINGLE DOSE VIAL ONE; ONDANSETRON 4 MG/2 ML VIAL IVPUSH PRN; ONDANSETRON 4 MG/2 ML VIAL ONE; PATIENT'S OWN MEDICATION (NON-FORMULARY) (Tiotropium Bromide [Spiriva] 1 PUFF Inh) IH PRN; PROPOFOL 20 ML ONE; SODIUM CHLORIDE 0.9% P/F 10 ML VIAL IJ ONE; SUCCINYLCHOLINE CHLORIDE 200 MG/10 ML SYRINGE ONE; TRANEXAMIC ACID 1000 MG/10 ML VIAL IVPUSH ONE; TRANEXAMIC ACID 1000 MG/10 ML VIAL ONE; ceFAZolin SODIUM 1 GM VIAL ONE; oxyCODONE HCL 10 MG SUSTAINED ACTING TABLET PO SCH; oxyCODONE HCL 5 MG TABLET PO PRN
[2021-06-11] MEDS ORDERED: oxyCODONE HCL 5 MG TABLET PO PRN (14:57)
[2021-06-11] MEDS ORDERED: ceFAZolin SODIUM 1 GM VIAL ONE (15:20)
[2021-06-11] MEDS ORDERED: DEXTROSE 5%-WATER - 50 ML IVPB ONE (15:21)
[2021-06-11] MEDS: oxyCODONE HCL 5 MG TABLET PO PRN ×2 (15:30→22:16)
[2021-06-11] MEDS: CEFAZOLIN 2 GM in DEXTROSE 5%-WATER - 50 ML IVPB SCH ×2 (15:31→23:59)
[2021-06-11] MEDS: HYDROmorphone HCL/PF 1 MG/ML VIAL IVPB PRN (20:29)
[2021-06-11] MEDS: ASPIRIN COATED 81 MG TABLET.EC PO SCH (21:12)
[2021-06-11] MEDS: SENNOSIDES/DOCUSATE COMBO (SENNA PLUS) TABLET (UD) PO SCH (21:14)
[2021-06-11] MEDS: traZODone HCL 50 MG TABLET (FP) PO SCH (21:14)
[2021-06-11] MEDS: ROSUVASTATIN CA 20 MG TABLET (FP) PO SCH (21:14)
[2021-06-11] MEDS: FAMOTIDINE 20 MG TABLET PO SCH (21:15)
[2021-06-11] MEDS: oxyCODONE HCL 10 MG SUSTAINED ACTING TABLET PO SCH (23:55)
[2021-06-11] MEDS: BACLOFEN 10 MG TABLET (FP) PO PRN (23:56)
[2021-06-12] MEDS: HYDROmorphone HCL/PF 1 MG/ML VIAL IVPB PRN ×2 (00:30→04:38)
[2021-06-12] MEDS: oxyCODONE HCL 5 MG TABLET PO PRN ×3 (02:53→17:27)
[2021-06-12] MEDS ORDERED: ACETAMINOPHEN 325 MG TABLET (FP) ONE (04:58)
[2021-06-12] MEDS: ACETAMINOPHEN 325 MG TABLET (FP) PO SCH ×3 (05:11→17:25)
[2021-06-12 08:08] LABS: WHITE BLOOD COUNT 7.4 K/mm3 (4.0-10.8)
[2021-06-12 08:14] LABS: CALCIUM 8.6 mg/dl (8.5-10); CREATININE 0.7 mg/dl (0.55-1.3)
[2021-06-12 08:25] LABS: HEMATOCRIT 28.6 % (32.4-45.2); HEMOGLOBIN 9.4 GM/dl (10.7-15.3); MCH 30.4 pg (25.7-33.7); MCHC 32.7 g/dl (32.0-36.0); MEAN CELL VOLUME 92.8 fl (80-96); MEAN PLT VOLUME 8.5 fl (7.5-11.1); PLATELET COUNT 136 10^3/uL (134-434); RBC 3.08 M/mm3 (3.60-5.2); RDW 14.5 % (11.6-15.6)
[2021-06-12] MEDS ORDERED: RANOLAZINE E.R. 500 MG TABLET (FP) PO SCH ×2 (10:00)
[2021-06-12] MEDS: oxyCODONE HCL 10 MG SUSTAINED ACTING TABLET PO SCH ×2 (10:09→21:19)
[2021-06-12] MEDS: FAMOTIDINE 20 MG TABLET PO SCH ×2 (10:10→21:18)
[2021-06-12] MEDS: MULTIVITAMINS (DAILY MVI) TABLET (FP) PO SCH (10:10)
[2021-06-12] MEDS: RANOLAZINE E.R. 500 MG TABLET (FP) PO SCH (10:10)
[2021-06-12] MEDS: ASPIRIN COATED 81 MG TABLET.EC PO SCH (10:11)
[2021-06-12] MEDS: CELECOXIB 200 MG CAPSULE PO SCH (10:11)
[2021-06-12] MEDS: ESCITALOPRAM OXALATE 10 MG TABLET PO SCH (10:11)
[2021-06-12] MEDS: SENNOSIDES/DOCUSATE COMBO (SENNA PLUS) TABLET (UD) PO SCH ×2 (10:11→21:18)
[2021-06-12] MEDS ORDERED: HEPARIN - 25,000 UNIT in SODIUM CHLORIDE 495 ML IV SCH (14:30)
[2021-06-12] MEDS ORDERED: HEPARIN NA (PORCINE) 5,000 UNITS/ML 1ML VIAL IVPUSH PRN ×2 (14:30)
[2021-06-12] MEDS: BACLOFEN 10 MG TABLET (FP) PO PRN (14:43)
[2021-06-12] MEDS ORDERED: ALPRAZolam 0.25 MG TABLET PO ONE (15:18)
[2021-06-12] MEDS: ROSUVASTATIN CA 20 MG TABLET (FP) PO SCH (21:18)
[2021-06-12] MEDS: traZODone HCL 50 MG TABLET (FP) PO SCH (21:18)
[2021-06-12] MEDS ORDERED: SODIUM CHLORIDE 1,000 ML IV STA (21:35)
[2021-06-12 22:02] LABS: HEMATOCRIT 29.3 % (32.4-45.2); HEMOGLOBIN 9.8 GM/dL (10.7-15.3); MCHC 33.4 g/dl (32.0-36.0); MEAN CELL VOLUME 92.8 fl (80-96); MEAN PLT VOLUME 8.8 fl (7.5-11.1); PLATELET COUNT 134 10^3/uL (134-434); RBC 3.16 M/mm3 (3.60-5.2); RDW 15.7 % (11.6-15.6)
[2021-06-13] MEDS: ACETAMINOPHEN 325 MG TABLET (FP) PO SCH ×4 (00:40→18:26)
[2021-06-13 08:57] LABS: HEMATOCRIT 26.1 % (32.4-45.2); HEMOGLOBIN 8.7 GM/dL (10.7-15.3); MCH 30.8 pg (25.7-33.7); MCHC 33.5 g/dl (32.0-36.0); MEAN CELL VOLUME 91.8 fl (80-96); MEAN PLT VOLUME 8.5 fl (7.5-11.1); PLATELET COUNT 114 10^3/uL (134-434); RBC 2.84 M/mm3 (3.60-5.2); RDW 15.4 % (11.6-15.6); WHITE BLOOD COUNT 7.3 K/mm3 (4.0-10.0)
[2021-06-13] MEDS: oxyCODONE HCL 10 MG SUSTAINED ACTING TABLET PO SCH (09:23)
[2021-06-13] MEDS: FAMOTIDINE 20 MG TABLET PO SCH ×2 (09:25→21:48)
[2021-06-13] MEDS: ESCITALOPRAM OXALATE 10 MG TABLET PO SCH (09:25)
[2021-06-13] MEDS: MULTIVITAMINS (DAILY MVI) TABLET (FP) PO SCH (09:25)
[2021-06-13] MEDS: RANOLAZINE E.R. 500 MG TABLET (FP) PO SCH (09:28)
[2021-06-13] MEDS: SENNOSIDES/DOCUSATE COMBO (SENNA PLUS) TABLET (UD) PO SCH ×2 (09:28→21:51)
[2021-06-13 10:05] LABS: BILIRUBIN,TOTAL 0.9 mg/dL (0.2-1); CREATININE 0.7 mg/dL (0.55-1.3); TOT PROT 5.7 g/dl (6.4-8.2)
[2021-06-13] MEDS: CELECOXIB 200 MG CAPSULE PO SCH (10:12)
[2021-06-13 10:19] LABS: BLOOD UREA NITROGEN 11.8 mg/dL (7-18)
[2021-06-13] MEDS ORDERED: POTASSIUM CHLORIDE ORAL LIQUID 20 MEQ/15 ML PO ONE (13:29)
[2021-06-13] MEDS ORDERED: HEPARIN NA (PORCINE) 5,000 UNITS/ML 1ML VIAL ONE ×2 (14:16)
[2021-06-13] MEDS ORDERED: LIDOCAINE HCL 1%, 10 MG/ML (20ML VIAL) ONE (14:16)
[2021-06-13] MEDS ORDERED: ROCURONIUM BROMIDE 50 MG/5 ML SYRINGE ONE (14:33)
[2021-06-13] MEDS ORDERED: fentaNYL CITRATE 250 MCG/5 ML VIAL ONE ×2 (14:33)
[2021-06-13] MEDS ORDERED: MIDAZOLAM HCL 2 MG/2 ML SINGLE DOSE VIAL ONE ×2 (14:34)
[2021-06-13] MEDS ORDERED: PROPOFOL 20 ML ONE (14:34)
[2021-06-13] MEDS ORDERED: ceFAZolin SODIUM 1 GM VIAL IVPB ONE (15:00)
[2021-06-13] MEDS ORDERED: HEPARIN NA (PORCINE) 5,000 UNITS/ML 1ML VIAL SQ ONE (15:26)
[2021-06-13] MEDS ORDERED: GENTAMICIN SO4 80 MG/2 ML VIAL IVPB ONE (16:00)
[2021-06-13] MEDS ORDERED: DEXAMETHASONE SOD PHOSPHATE 4 MG/1 ML VIAL ONE (16:06)
[2021-06-13] MEDS ORDERED: GENTAMICIN SO4 80 MG/2 ML VIAL ONE (16:32)
[2021-06-13] MEDS ORDERED: NEOSTIGMINE METHYLSULFATE 0.5 MG/ML - 10 ML MDV ONE (16:52)
[2021-06-13] MEDS ORDERED: HYDROmorphone HCl 2 MG/ML VIAL IVPB PRN (17:31)
[2021-06-13] MEDS ORDERED: HYDROmorphone HCl 2 MG/ML VIAL ONE (17:36)
[2021-06-13] MEDS ORDERED: SODIUM CHLORIDE 1,000 ML IV SCH (18:00)
[2021-06-13] MEDS ORDERED: ACETAMINOPHEN 1000 MG/100 ML VIAL IVPB SCH (18:00)
[2021-06-13] MEDS ORDERED: oxyCODONE HCL 5 MG TABLET PO PRN (18:02)
[2021-06-13] MEDS ORDERED: ONDANSETRON 4 MG/2 ML VIAL IVPUSH PRN (18:02)
[2021-06-13] MEDS ORDERED: ALBUTEROL SO4 2.5/IPRATROPIUM 0.5 INH SOL 3 ML VIAL.NEB. NEB PRN (18:02)
[2021-06-13] MEDS ORDERED: PATIENT'S OWN MEDICATION (NON-FORMULARY) (Tiotropium Bromide [Spiriva] 1 INH) IH PRN (18:02)
[2021-06-13] MEDS ORDERED: BACLOFEN 10 MG TABLET (FP) PO PRN (18:02)
[2021-06-13] MEDS ORDERED: MAG HYDROX/AL HYDROX/SIMETH 30 ML UNIT-DOSE CUP PO PRN (18:02)
[2021-06-13] MEDS ORDERED: BUDESONIDE/FORMETEROL FUMARATE 160/4.5 mcg INHALER IH PRN (18:02)
[2021-06-13] MEDS ORDERED: MAGNESIUM HYDROX 2400MG/30ML ORAL SUSPENSION 30 ML CUP PO PRN (18:02)
[2021-06-13] MEDS ORDERED: HYDROmorphone HCL CARPU-JECT 2 MG/1 ML DISP.SYRIN IVPB PRN (19:33)
[2021-06-13 19:38] LABS: BASO % 0.3 % (0-2.0); EOS % 0.5 % (0-4.5); HEMATOCRIT 30.2 % (32.4-45.2); HEMOGLOBIN 10.1 GM/dL (10.7-15.3); MCH 30.5 pg (25.7-33.7); MCHC 33.4 g/dl (32.0-36.0); MEAN CELL VOLUME 91.5 fl (80-96); MEAN PLT VOLUME 8.6 fl (7.5-11.1); MONO % 7.2 % (3.8-10.2); PLATELET COUNT 114 10^3/uL (134-434); RBC 3.31 M/mm3 (3.60-5.2); RDW 15.5 % (11.6-15.6); WHITE BLOOD COUNT 7.3 K/mm3 (4.0-10.0)
[2021-06-13 19:44] LABS: INR 1.17 (0.83-1.09); PROTHROMBIN TIME (PATIENT) 13.1 SEC (9.7-13.0)
[2021-06-13 20:05] LABS: ACTIVATED PTT 59.9 SECONDS (25.2-36.5)
[2021-06-13 20:12] LABS: BLOOD UREA NITROGEN 7.2 mg/dL (7-18); CALCIUM 7.4 mg/dL (8.5-10.1); CREATININE 0.7 mg/dL (0.55-1.3)
[2021-06-13] MEDS ORDERED: HEPARIN NA (PORCINE) 5,000 UNITS/ML 1ML VIAL IVPUSH PRN ×2 (20:58)
[2021-06-13] MEDS ORDERED: HEPARIN - 25,000 UNIT in SODIUM CHLORIDE 495 ML IV SCH (21:00)
[2021-06-13] MEDS: MUPIROCIN 2% TOPICAL OINTMENT FOR DECOLONIZATION NS SCH ×2 (21:48→22:30)
[2021-06-13] MEDS ORDERED: CHLORHEXIDINE GLUCONATE 4% CLEANSER FOR DECOLONIZATION TP SCH ×2 (22:00→22:15)
[2021-06-13] MEDS ORDERED: ROSUVASTATIN CA 20 MG TABLET (FP) PO SCH (22:00)
[2021-06-13] MEDS ORDERED: traZODone HCL 50 MG TABLET (FP) PO SCH (22:00)
[2021-06-13] MEDS: ACETAMINOPHEN 1000 MG/100 ML VIAL IVPB SCH (23:00)
[2021-06-13] MEDS ORDERED: CEFAZOLIN 2 GM in DEXTROSE 5%-WATER - 100 ML IVPB ONE (23:00)
[2021-06-14 03:36] LABS: ACTIVATED PTT 48.5 SECONDS (25.2-36.5); INR 1.13 (0.83-1.09); PROTHROMBIN TIME (PATIENT) 12.7 SEC (9.7-13.0)
[2021-06-14] MEDS ORDERED: HEPARIN NA (PORCINE) 5,000 UNITS/ML 1ML VIAL IVPUSH PRN ×4 (04:02→14:18)
[2021-06-14] MEDS: HEPARIN - 25,000 UNIT in SODIUM CHLORIDE 495 ML IV SCH ×4 (04:19→17:27)
[2021-06-14] MEDS: ACETAMINOPHEN 1000 MG/100 ML VIAL IVPB SCH ×2 (05:53→12:07)
[2021-06-14] MEDS: oxyCODONE HCL 5 MG TABLET PO PRN ×2 (06:09→10:06)
[2021-06-14] MEDS: CEFAZOLIN 1 GM/D5W 1 GM/50 ML BAG IVPB SCH ×2 (06:44→12:09)
[2021-06-14 06:52] LABS: BASO % 0.2 % (0-2.0); HEMATOCRIT 29.9 % (32.4-45.2); LYMPH % 13.3 % (8-40); MCH 31.2 pg (25.7-33.7); MCHC 33.5 g/dl (32.0-36.0); MEAN PLT VOLUME 9.2 fl (7.5-11.1); NEUT % 77.5 % (42.8-82.8); PLATELET COUNT 117 10^3/uL (134-434); RBC 3.21 M/mm3 (3.60-5.2); RDW 15.4 % (11.6-15.6)
[2021-06-14 07:32] LABS: BLOOD UREA NITROGEN 7.8 mg/dL (7-18); CALCIUM 7.4 mg/dL (8.5-10.1); CREATININE 0.6 mg/dL (0.55-1.3); MAGNESIUM 1.9 mg/dL (1.8-2.4); PHOSPHOROUS 2.7 mg/dL (2.5-4.9)
[2021-06-14] MEDS ORDERED: PT OWN MED DRAWER 7, Y5N ONE (09:16)
[2021-06-14] MEDS ORDERED: oxyCODONE HCL 10 MG SUSTAINED ACTING TABLET PO SCH (10:00)
[2021-06-14] MEDS ORDERED: ESCITALOPRAM OXALATE 10 MG TABLET PO SCH (10:00)
[2021-06-14] MEDS ORDERED: MULTIVITAMINS (DAILY MVI) TABLET (FP) PO SCH (10:00)
[2021-06-14] MEDS ORDERED: RANOLAZINE E.R. 500 MG TABLET (FP) PO SCH ×2 (10:00)
[2021-06-14] MEDS ORDERED: CELECOXIB 200 MG CAPSULE PO SCH (10:00)
[2021-06-14] MEDS: FAMOTIDINE 20 MG TABLET PO SCH ×2 (10:03→21:31)
[2021-06-14] MEDS: SENNOSIDES/DOCUSATE COMBO (SENNA PLUS) TABLET (UD) PO SCH ×2 (10:04→21:31)
[2021-06-14] MEDS: MUPIROCIN 2% TOPICAL OINTMENT FOR DECOLONIZATION NS SCH ×2 (10:10)
[2021-06-14] MEDS ORDERED: MAGNESIUM HYDROX 2400MG/30ML ORAL SUSPENSION 30 ML CUP PO PRN (14:18)
[2021-06-14] MEDS ORDERED: MAG HYDROX/AL HYDROX/SIMETH 30 ML UNIT-DOSE CUP PO PRN (14:18)
[2021-06-14] MEDS ORDERED: ALBUTEROL SO4 2.5/IPRATROPIUM 0.5 INH SOL 3 ML VIAL.NEB. NEB PRN (14:18)
[2021-06-14] MEDS ORDERED: BACLOFEN 10 MG TABLET (FP) PO PRN (14:18)
[2021-06-14] MEDS ORDERED: ONDANSETRON 4 MG/2 ML VIAL IVPUSH PRN (14:18)
[2021-06-14] MEDS ORDERED: HYDROmorphone HCL CARPU-JECT 2 MG/1 ML DISP.SYRIN IVPB PRN (14:18)
[2021-06-14] MEDS ORDERED: ACETAMINOPHEN 325 MG TABLET (FP) PO PRN (17:00)
[2021-06-14] MEDS ORDERED: ALPRAZolam 1 MG TABLET PO PRN (17:03)
[2021-06-14] MEDS: ALPRAZolam 0.25 MG TABLET PO PRN (17:21)
[2021-06-14] MEDS: CEPHALEXIN MONOHYDRATE 500 MG CAPSULE (UD) PO SCH (17:22)
[2021-06-14] MEDS: SODIUM CHLORIDE 1,000 ML IV SCH (17:25)
[2021-06-14] MEDS ORDERED: CEFAZOLIN 1 GM/D5W 1 GM/50 ML BAG IVPB SCH (18:00)
[2021-06-14] MEDS: oxyCODONE HCL 10 MG SUSTAINED ACTING TABLET PO SCH (21:30)
[2021-06-14] MEDS: ROSUVASTATIN CA 20 MG TABLET (FP) PO SCH (21:31)
[2021-06-14] MEDS: traZODone HCL 50 MG TABLET (FP) PO SCH (21:31)
[2021-06-14] MEDS ORDERED: CHLORHEXIDINE GLUCONATE 4% CLEANSER FOR DECOLONIZATION TP SCH ×2 (22:00)
[2021-06-14] MEDS ORDERED: MUPIROCIN 2% TOPICAL OINTMENT FOR DECOLONIZATION NS SCH ×2 (22:00)
[2021-06-15] MEDS ORDERED: ACETAMINOPHEN 325 MG TABLET (FP) PO PRN (00:01)
[2021-06-15] MEDS: CEPHALEXIN MONOHYDRATE 500 MG CAPSULE (UD) PO SCH ×5 (00:11→23:09)
[2021-06-15] MEDS: oxyCODONE HCL 5 MG TABLET PO PRN ×2 (00:49→23:09)
[2021-06-15] MEDS: SODIUM CHLORIDE 1,000 ML IV SCH ×2 (01:31→15:11)
[2021-06-15] MEDS: ACETAMINOPHEN 325 MG TABLET (FP) PO PRN (05:00)
[2021-06-15 08:34] LABS: BASO % 0.4 % (0-2.0); EOS % 2.9 % (0-4.5); HEMATOCRIT 27.1 % (32.4-45.2); HEMOGLOBIN 9.2 GM/dL (10.7-15.3); LYMPH % 25.5 % (8-40); MCH 31.5 pg (25.7-33.7); MCHC 33.9 g/dl (32.0-36.0); MEAN CELL VOLUME 92.8 fl (80-96); MONO % 10.4 % (3.8-10.2); NEUT % 60.8 % (42.8-82.8); PLATELET COUNT 152 10^3/uL (134-434); RBC 2.92 M/mm3 (3.60-5.2); RDW 15.9 % (11.6-15.6); WHITE BLOOD COUNT 6.9 K/mm3 (4.0-10.0)
[2021-06-15 09:49] LABS: ALBUMIN 2.6 g/dl (3.4-5.0); BILIRUBIN,TOTAL 0.6 mg/dL (0.2-1); BLOOD UREA NITROGEN 8.6 mg/dL (7-18); CALCIUM 7.6 mg/dL (8.5-10.1); CREATININE 0.7 mg/dL (0.55-1.3); TOT PROT 5.7 g/dl (6.4-8.2)
[2021-06-15] MEDS: ESCITALOPRAM OXALATE 10 MG TABLET PO SCH (09:49)
[2021-06-15] MEDS: CELECOXIB 200 MG CAPSULE PO SCH (09:49)
[2021-06-15] MEDS: MULTIVITAMINS (DAILY MVI) TABLET (FP) PO SCH (09:50)
[2021-06-15] MEDS: FAMOTIDINE 20 MG TABLET PO SCH ×2 (09:52→21:59)
[2021-06-15] MEDS: SENNOSIDES/DOCUSATE COMBO (SENNA PLUS) TABLET (UD) PO SCH ×2 (09:53→21:59)
[2021-06-15] MEDS: oxyCODONE HCL 10 MG SUSTAINED ACTING TABLET PO SCH ×2 (09:56→22:00)
[2021-06-15] MEDS: RANOLAZINE E.R. 500 MG TABLET (FP) PO SCH (09:57)
[2021-06-15] MEDS ORDERED: HEPARIN - 25,000 UNIT in SODIUM CHLORIDE 495 ML IV SCH (16:45)
[2021-06-15] MEDS: ROSUVASTATIN CA 20 MG TABLET (FP) PO SCH (21:59)
[2021-06-15] MEDS: APIXABAN 5 MG TABLET PO SCH (21:59)
[2021-06-15] MEDS: traZODone HCL 50 MG TABLET (FP) PO SCH (21:59)
[2021-06-16] MEDS: oxyCODONE HCL 5 MG TABLET PO PRN ×4 (04:00→23:22)
[2021-06-16] MEDS: ACETAMINOPHEN 325 MG TABLET (FP) PO PRN (05:43)
[2021-06-16] MEDS: CEPHALEXIN MONOHYDRATE 500 MG CAPSULE (UD) PO SCH ×5 (05:43→23:22)
[2021-06-16] MEDS ORDERED: PT OWN MED DRAWER 7, Y5N ONE (07:50)
[2021-06-16 08:04] LABS: BASO % 0.3 % (0-2.0); EOS % 4.9 % (0-4.5); HEMATOCRIT 30.1 % (32.4-45.2); HEMOGLOBIN 10.2 GM/dL (10.7-15.3); LYMPH % 26.2 % (8-40); MCH 31.1 pg (25.7-33.7); MCHC 33.8 g/dl (32.0-36.0); MEAN PLT VOLUME 8.2 fl (7.5-11.1); MONO % 12.1 % (3.8-10.2); NEUT % 56.5 % (42.8-82.8); PLATELET COUNT 184 10^3/uL (134-434); RBC 3.27 M/mm3 (3.60-5.2); RDW 15.4 % (11.6-15.6)
[2021-06-16 08:28] LABS: ALBUMIN 2.6 g/dl (3.4-5.0); BLOOD UREA NITROGEN 5.4 mg/dL (7-18); CALCIUM 8.3 mg/dL (8.5-10.1)
[2021-06-16 08:32] LABS: BILIRUBIN,TOTAL 1.2 mg/dL (0.2-1); CREATININE 0.6 mg/dL (0.55-1.3)
[2021-06-16] MEDS: MULTIVITAMINS (DAILY MVI) TABLET (FP) PO SCH (09:06)
[2021-06-16] MEDS: SENNOSIDES/DOCUSATE COMBO (SENNA PLUS) TABLET (UD) PO SCH ×2 (09:06→21:52)
[2021-06-16] MEDS: ESCITALOPRAM OXALATE 10 MG TABLET PO SCH (09:06)
[2021-06-16] MEDS: RANOLAZINE E.R. 500 MG TABLET (FP) PO SCH (09:06)
[2021-06-16] MEDS: FAMOTIDINE 20 MG TABLET PO SCH ×2 (09:06→21:52)
[2021-06-16] MEDS: APIXABAN 5 MG TABLET PO SCH ×2 (09:06→21:52)
[2021-06-16] MEDS: CELECOXIB 200 MG CAPSULE PO SCH (09:08)
[2021-06-16] MEDS: TIOTROPIUM BROMIDE 2.5 MCG (SPIRIVA) RESPIMAT INHALER IH SCH (11:25)
[2021-06-16] MEDS ORDERED: diphenhydrAMINE HCL 25 MG CAPSULE (FP) PO PRN (17:00)
[2021-06-16] MEDS ORDERED: POTASSIUM CHLORIDE TABS 20 MEQ TABLET.ER (FP) PO ONE ×2 (20:30→23:43)
[2021-06-16] MEDS: traZODone HCL 50 MG TABLET (FP) PO SCH (21:52)
[2021-06-16] MEDS: ROSUVASTATIN CA 20 MG TABLET (FP) PO SCH (21:52)
[2021-06-16] MEDS: BUDESONIDE/FORMETEROL FUMARATE 160/4.5 mcg INHALER IH SCH (21:56)
[2021-06-16] MEDS: KCL 10 MEQ IVPB 10 MEQ/100 ML INFUS.BAG IVPB SCH ×2 (22:18→22:47)
[2021-06-16] MEDS ORDERED: MAGNESIUM SULF 50% (8.12 MEQ/2 ML-1 GM VIAL) IVPB ONE (23:30)
[2021-06-17] MEDS: CEPHALEXIN MONOHYDRATE 500 MG CAPSULE (UD) PO SCH ×3 (06:07→17:23)
[2021-06-17 08:32] LABS: BLOOD UREA NITROGEN 5.1 mg/dL (7-18); CALCIUM 8.2 mg/dL (8.5-10.1)
[2021-06-17 08:35] LABS: CREATININE 0.6 mg/dL (0.55-1.3)
[2021-06-17] MEDS: ALPRAZolam 0.25 MG TABLET PO PRN (08:46)
[2021-06-17] MEDS: RANOLAZINE E.R. 500 MG TABLET (FP) PO SCH (09:06)
[2021-06-17] MEDS: TIOTROPIUM BROMIDE 2.5 MCG (SPIRIVA) RESPIMAT INHALER IH SCH (09:06)
[2021-06-17] MEDS: ESCITALOPRAM OXALATE 10 MG TABLET PO SCH (09:06)
[2021-06-17] MEDS: MULTIVITAMINS (DAILY MVI) TABLET (FP) PO SCH (09:06)
[2021-06-17] MEDS: FAMOTIDINE 20 MG TABLET PO SCH (09:06)
[2021-06-17] MEDS: APIXABAN 5 MG TABLET PO SCH (09:06)
[2021-06-17] MEDS: SENNOSIDES/DOCUSATE COMBO (SENNA PLUS) TABLET (UD) PO SCH (09:06)
[2021-06-17] MEDS: BUDESONIDE/FORMETEROL FUMARATE 160/4.5 mcg INHALER IH SCH (09:07)
[2021-06-17 10:49] VITALS: BP 131/97; PULSE 95; TEMP 98.8
[2021-06-17] MEDS: oxyCODONE HCL 5 MG TABLET PO PRN ×2 (11:03→16:20)
== END 2021-06-17 21:08 | disposition home health service (06) | DRG 470 ==
LOC: FASUSAT 13:44 → FM/S 13:44 → J6S 06-12 11:29 → FASUSAT 06-12 12:12 → J6S 06-12 12:13 → JICU 06-13 19:56 → J4W 06-14 13:28
PROVIDERS: ADMIT Family Medicine; ATTEND Family Medicine
PROC: 0SRC0J9 Replacement of Right Knee Joint with Synthetic Substitute, Cemented, Open Approach (ICD-10-PCS; principal; 2021-06-12)
PROC: 0SPF04Z Removal of Internal Fixation Device from Right Ankle Joint, Open Approach (ICD-10-PCS; 2021-06-12)
PROC: 04CM0ZZ Extirpation of Matter from Right Popliteal Artery, Open Approach (ICD-10-PCS; 2021-06-13)
PROC: 30233N1 Transfusion of Nonautologous Red Blood Cells into Peripheral Vein, Percutaneous Approach (ICD-10-PCS; 2021-06-13)
DX: M17.11 Unilateral primary osteoarthritis, right knee (principal); I74.3 Embolism and thrombosis of arteries of the lower extremities; I82.409 Acute embolism and thrombosis of unspecified deep veins of unspecified lower extremity; T84.84XA Pain due to internal orthopedic prosthetic devices, implants and grafts, initial encounter; I47.1 Supraventricular tachycardia; I50.32 Chronic diastolic (congestive) heart failure; R71.0 Precipitous drop in hematocrit; M19.071 Primary osteoarthritis, right ankle and foot; E11.8 Type 2 diabetes mellitus with unspecified complications; Z96.659 Presence of unspecified artificial knee joint; J44.9 Chronic obstructive pulmonary disease, unspecified; E03.9 Hypothyroidism, unspecified; J45.909 Unspecified asthma, uncomplicated; M25.569 Pain in unspecified knee; I11.0 Hypertensive heart disease with heart failure; I25.10 Atherosclerotic heart disease of native coronary artery without angina pectoris; E11.9 Type 2 diabetes mellitus without complications; I77.1 Stricture of artery; I71.9 Aortic aneurysm of unspecified site, without rupture; M25.571 Pain in right ankle and joints of right foot; E87.6 Hypokalemia; E78.5 Hyperlipidemia, unspecified; I70.209 Unspecified atherosclerosis of native arteries of extremities, unspecified extremity; Z98.61 Coronary angioplasty status; F41.8 Other specified anxiety disorders; E66.9 Obesity, unspecified; Z68.30 Body mass index [BMI] 30.0-30.9, adult; Y83.9 Surgical procedure, unspecified as the cause of abnormal reaction of the patient, or of later complication, without mention of misadventure at the time of the procedure
CPT/HCPCS: 36415; 36430; 73560-TC-RT-FY; 75635-TC; 80048; 80053; 83036; 83735; 84100; 84439; 84443; 85025; 85027; 85610; 85730; 86850; 86900; 86901; 86922; 88304-TC; 93005; 93010; 93306-TC; 93926-TC; 94010; 94760; 97116-GP; 97162-GP; C9803; J0131; J0475; J1644; P9058; Q9967; U0003; U0005

== ENCOUNTER 2021-07-09 13:11 | Inpatient (IN) | payer OTHER ==
[2021-07-09] MEDS ORDERED: LACTATED RINGERS SOLUTION 1000 ML INFUS.BAG IV ONE (14:26)
[2021-07-09] MEDS ORDERED: ACETAMINOPHEN INJECTION 100 ML IVPB ONE (15:12)
[2021-07-09] MEDS ORDERED: ACETAMINOPHEN 1000 MG/100 ML VIAL IVPB ONE (15:19)
[2021-07-09 15:21] LABS: BASO % 0.7 % (0-2.0); EOS % 0.7 % (0-4.5); HEMATOCRIT 36.9 % (32.4-45.2); HEMOGLOBIN 12.3 GM/dL (10.7-15.3); LYMPH % 25.1 % (8-40); MCH 30.2 pg (25.7-33.7); MCHC 33.3 g/dl (32.0-36.0); MEAN CELL VOLUME 90.7 fl (80-96); MEAN PLT VOLUME 8.1 fl (7.5-11.1); NEUT % 65.5 % (42.8-82.8); PLATELET COUNT 321 10^3/uL (134-434); RBC 4.06 M/mm3 (3.60-5.2); RDW 15.3 % (11.6-15.6); WHITE BLOOD COUNT 7.2 K/mm3 (4.0-10.0)
[2021-07-09 15:29] LABS: INR 1.64 (0.83-1.09); PROTHROMBIN TIME (PATIENT) 18.5 SEC (9.7-13.0)
[2021-07-09 15:32] LABS: ACTIVATED PTT 33.3 SECONDS (25.2-36.5)
[2021-07-09 15:35] LABS: EPI CELLS 20 /uL (0-25.1); HYALINE CASTS 15 /uL (0-3.1); URINE APPEARANCE CLEAR; URINE BACTERIA 165 /uL (0-1359); URINE BILIRUBIN 1+ (NEGATIVE); URINE COLOR DK YELLOW; URINE GLUCOSE (UA) NEGATIVE (NEGATIVE); URINE KETONE 1+ (NEGATIVE); URINE LEUK ESTERASE TRACE (NEGATIVE); URINE NITRITE NEGATIVE (NEGATIVE); URINE PROTEIN 1+ (NEGATIVE); URINE RBC 27 /uL (0-23.9); URINE WBC 23 /uL (0-25.8)
[2021-07-09 15:46] LABS: SODIUM 139 mmol/L (136-145)
[2021-07-09 15:50] LABS: ALBUMIN 4.2 g/dl (3.4-5.0); BLOOD UREA NITROGEN 5.7 mg/dL (7-18); CALCIUM 10.2 mg/dL (8.5-10.1)
[2021-07-09 15:51] LABS: GLUCOSE,RANDOM 92 mg/dL (74-106)
[2021-07-09 15:53] LABS: CREATININE 0.8 mg/dL (0.55-1.3); SGOT/AST 47 U/L (15-37); SGPT/ALT 19 U/L (13-61)
[2021-07-09 15:55] LABS: BILIRUBIN,TOTAL 0.9 mg/dL (0.2-1)
[2021-07-09 15:56] LABS: ALK PHOS 92 U/L (45-117)
[2021-07-09 15:58] LABS: ANION GAP 6 MMOL/L (8-16); CHLORIDE 105 mmol/L (98-107); CO2 28 mmol/L (21-32)
[2021-07-09] MEDS ORDERED: CEFTRIAXONE 1,000 MG in DEXTROSE 5%-WATER - 50 ML IVPB ONE (17:55)
[2021-07-09] MEDS ORDERED: CEFTRIAXONE 1 GM/50 ML BAG ONE (18:26)
[2021-07-09] MEDS ORDERED: MELATONIN 5 MG TABLETS PO ONE (20:56)
[2021-07-09] MEDS ORDERED: DOCUSATE SODIUM 100 MG CAPSULE (FP) PO PRN (21:42)
[2021-07-09] MEDS ORDERED: ALBUTEROL SO4 2.5/IPRATROPIUM 0.5 INH SOL 3 ML VIAL.NEB. NEB PRN (21:42)
[2021-07-09] MEDS ORDERED: ROSUVASTATIN CA 5 MG TABLET (FP) PO SCH (22:00)
[2021-07-09] MEDS ORDERED: MELATONIN 5 MG TABLETS ONE (22:19)
[2021-07-09] MEDS ORDERED: APIXABAN 5 MG TABLET ONE (22:19)
[2021-07-09] MEDS ORDERED: FAMOTIDINE 20 MG TABLET ONE (22:20)
[2021-07-09] MEDS ORDERED: PT OWN MED DRAWER 7, Y5N ONE (22:20)
[2021-07-09] MEDS: APIXABAN 5 MG TABLET PO SCH (22:26)
[2021-07-09] MEDS: DEXTROSE 5%-0.45% SALINE 1,000 ML IV SCH (22:26)
[2021-07-10] MEDS: ALPRAZolam 0.25 MG TABLET PO PRN (04:39)
[2021-07-10] MEDS: ACETAMINOPHEN 325 MG TABLET (FP) PO PRN ×2 (04:39→10:34)
[2021-07-10] MEDS ORDERED: DEXTROSE 5%-WATER - 50 ML IVPB ONE (10:31)
[2021-07-10] MEDS ORDERED: cefTRIAXone SODIUM 1 GM VIAL ONE (10:31)
[2021-07-10] MEDS: APIXABAN 5 MG TABLET PO SCH (10:33)
[2021-07-10] MEDS: ESCITALOPRAM OXALATE 10 MG TABLET PO SCH (10:34)
[2021-07-10] MEDS: CEFTRIAXONE 1 GM in DEXTROSE 5%-WATER - 50 ML IVPB SCH (10:34)
[2021-07-10] MEDS: FAMOTIDINE 20 MG TABLET PO SCH ×2 (10:34→21:56)
[2021-07-10 10:39] LABS: BASO % 0.3 % (0-2.0); EOS % 2.1 % (0-4.5); HEMATOCRIT 30.8 % (32.4-45.2); HEMOGLOBIN 10.3 GM/dL (10.7-15.3); LYMPH % 27.8 % (8-40); MCH 30.1 pg (25.7-33.7); MCHC 33.3 g/dl (32.0-36.0); MEAN CELL VOLUME 90.3 fl (80-96); NEUT % 59.8 % (42.8-82.8); PLATELET COUNT 263 10^3/uL (134-434); RBC 3.42 M/mm3 (3.60-5.2); RDW 14.9 % (11.6-15.6); WHITE BLOOD COUNT 4.2 K/mm3 (4.0-10.0)
[2021-07-10 10:44] LABS: BLOOD UREA NITROGEN 3.3 mg/dL (7-18); CALCIUM 9.4 mg/dL (8.5-10.1)
[2021-07-10 10:47] LABS: CREATININE 0.6 mg/dL (0.55-1.3)
[2021-07-10 10:48] LABS: BILIRUBIN,TOTAL 0.5 mg/dL (0.2-1)
[2021-07-10 10:53] LABS: ALBUMIN 3.2 g/dl (3.4-5.0); TOT PROT 6.6 g/dl (6.4-8.2)
[2021-07-10] MEDS ORDERED: FLU VACC QS2021-22(6MOS UP)/PF 60 MCG/0.5 ML SYRINGE IM ONE (11:00)
[2021-07-10] MEDS: DEXTROSE 5%-0.45% SALINE 1,000 ML IV SCH (14:36)
[2021-07-10 15:05] VITALS: BMI 29.4
[2021-07-10] MEDS: RANOLAZINE E.R. 500 MG TABLET (FP) PO SCH (15:39)
[2021-07-10] MEDS ORDERED: PT OWN MED DRAWER 7, Y5N ONE (21:36)
[2021-07-10] MEDS: ENOXAPARIN NA (PORCINE) 80 MG/0.8 ML DISP.SYRIN SQ SCH (21:56)
[2021-07-10] MEDS: ROSUVASTATIN CA 20 MG TABLET (FP) PO SCH (21:56)
[2021-07-10] MEDS: BUDESONIDE/FORMETEROL FUMARATE 160/4.5 mcg INHALER IH SCH (23:57)
[2021-07-11] MEDS ORDERED: ONDANSETRON 4 MG/2 ML VIAL IVPUSH ONE (05:30)
[2021-07-11] MEDS: DEXTROSE 5%-0.45% SALINE 1,000 ML IV SCH ×3 (07:27→21:15)
[2021-07-11] MEDS ORDERED: cefTRIAXone SODIUM 1 GM VIAL ONE (09:22)
[2021-07-11] MEDS ORDERED: DEXTROSE 5%-WATER - 50 ML IVPB ONE (09:22)
[2021-07-11] MEDS: ALPRAZolam 0.25 MG TABLET PO PRN ×2 (09:27→20:40)
[2021-07-11] MEDS: FAMOTIDINE 20 MG TABLET PO SCH ×2 (09:27→21:15)
[2021-07-11] MEDS: CEFTRIAXONE 1 GM in DEXTROSE 5%-WATER - 50 ML IVPB SCH (09:27)
[2021-07-11] MEDS: ENOXAPARIN NA (PORCINE) 80 MG/0.8 ML DISP.SYRIN SQ SCH (09:27)
[2021-07-11] MEDS: RANOLAZINE E.R. 500 MG TABLET (FP) PO SCH (09:27)
[2021-07-11] MEDS: ESCITALOPRAM OXALATE 10 MG TABLET PO SCH (09:28)
[2021-07-11] MEDS: BUDESONIDE/FORMETEROL FUMARATE 160/4.5 mcg INHALER IH SCH ×2 (09:42→21:15)
[2021-07-11] MEDS: TIOTROPIUM BROMIDE 2.5 MCG (SPIRIVA) RESPIMAT INHALER IH SCH (09:42)
[2021-07-11] MEDS: RIVAROXABAN 20 MG TABLET PO SCH (18:15)
[2021-07-11] MEDS: ACETAMINOPHEN 325 MG TABLET (FP) PO PRN (20:34)
[2021-07-11] MEDS: ROSUVASTATIN CA 20 MG TABLET (FP) PO SCH (21:15)
[2021-07-12] MEDS: DEXTROSE 5%-0.45% SALINE 1,000 ML IV SCH ×3 (00:43→20:49)
[2021-07-12] MEDS ORDERED: FLU VACC QS2021-22(6MOS UP)/PF 60 MCG/0.5 ML SYRINGE IM ONE (07:00)
[2021-07-12] MEDS: ALPRAZolam 0.25 MG TABLET PO PRN ×2 (08:18→21:53)
[2021-07-12 09:31] LABS: BASO % 0.4 % (0-2.0); EOS % 1.1 % (0-4.5); HEMOGLOBIN 11.1 GM/dL (10.7-15.3); LYMPH % 22.5 % (8-40); MCH 30.1 pg (25.7-33.7); MCHC 32.8 g/dl (32.0-36.0); MEAN CELL VOLUME 91.8 fl (80-96); MEAN PLT VOLUME 8.3 fl (7.5-11.1); MONO % 9.1 % (3.8-10.2); NEUT % 66.9 % (42.8-82.8); PLATELET COUNT 282 10^3/uL (134-434); RDW 14.9 % (11.6-15.6); WHITE BLOOD COUNT 5.3 K/mm3 (4.0-10.0)
[2021-07-12 09:50] LABS: CHLORIDE 107 mmol/L (98-107); SODIUM 142 mmol/L (136-145)
[2021-07-12 09:55] LABS: CALCIUM 9.4 mg/dL (8.5-10.1)
[2021-07-12 09:56] LABS: ALBUMIN 3.4 g/dl (3.4-5.0); BLOOD UREA NITROGEN < 1.0 mg/dL (7-18); CO2 29 mmol/L (21-32); GLUCOSE,RANDOM 147 mg/dL (74-106)
[2021-07-12 09:58] LABS: BILIRUBIN,TOTAL 0.4 mg/dL (0.2-1)
[2021-07-12 09:59] LABS: CREATININE 0.6 mg/dL (0.55-1.3); SGOT/AST 13 U/L (15-37); SGPT/ALT 14 U/L (13-61)
[2021-07-12 10:02] LABS: ALK PHOS 77 U/L (45-117)
[2021-07-12] MEDS: ESCITALOPRAM OXALATE 10 MG TABLET PO SCH (10:04)
[2021-07-12] MEDS: RANOLAZINE E.R. 500 MG TABLET (FP) PO SCH (10:04)
[2021-07-12] MEDS: FAMOTIDINE 20 MG TABLET PO SCH ×2 (10:04→21:53)
[2021-07-12 10:10] LABS: ANION GAP 6 MMOL/L (8-16)
[2021-07-12] MEDS: KCL 10 MEQ IVPB 10 MEQ/100 ML INFUS.BAG IVPB SCH ×4 (11:33→15:34)
[2021-07-12] MEDS: BUDESONIDE/FORMETEROL FUMARATE 160/4.5 mcg INHALER IH SCH ×2 (12:10→21:54)
[2021-07-12] MEDS: TIOTROPIUM BROMIDE 2.5 MCG (SPIRIVA) RESPIMAT INHALER IH SCH (12:10)
[2021-07-12] MEDS ORDERED: POTASSIUM CHLORIDE TABS 10 MEQ TABLET.ER (FP) PO ONE (16:00)
[2021-07-12] MEDS: RIVAROXABAN 20 MG TABLET PO SCH (16:59)
[2021-07-12] MEDS: ROSUVASTATIN CA 20 MG TABLET (FP) PO SCH (21:53)
[2021-07-12] MEDS ORDERED: ALPRAZolam 0.25 MG TABLET PO PRN (23:04)
[2021-07-13] MEDS: DEXTROSE 5%-0.45% SALINE 1,000 ML IV SCH (05:41)
[2021-07-13] MEDS ORDERED: PT OWN MED DRAWER 7, Y5N ONE (10:00)
[2021-07-13] MEDS: RANOLAZINE E.R. 500 MG TABLET (FP) PO SCH (10:03)
[2021-07-13] MEDS: FAMOTIDINE 20 MG TABLET PO SCH (10:04)
[2021-07-13] MEDS: ESCITALOPRAM OXALATE 10 MG TABLET PO SCH (10:04)
[2021-07-13] MEDS: BUDESONIDE/FORMETEROL FUMARATE 160/4.5 mcg INHALER IH SCH (10:08)
[2021-07-13] MEDS: TIOTROPIUM BROMIDE 2.5 MCG (SPIRIVA) RESPIMAT INHALER IH SCH (10:08)
[2021-07-13] MEDS: ACETAMINOPHEN 325 MG TABLET (FP) PO PRN (13:10)
[2021-07-13 18:29] VITALS: BP 127/95; PULSE 92; TEMP 98.2
== END 2021-07-13 17:00 | disposition left against medical advice (07) | DRG 880 ==
LOC: JER 13:11 → JERBED 18:13 → J5S 07-10 00:20
PROVIDERS: ADMIT Internal Medicine; ATTEND Family Medicine
DX: F41.8 Other specified anxiety disorders (principal); I50.32 Chronic diastolic (congestive) heart failure; R62.7 Adult failure to thrive; I25.10 Atherosclerotic heart disease of native coronary artery without angina pectoris; E78.5 Hyperlipidemia, unspecified; J44.9 Chronic obstructive pulmonary disease, unspecified; K21.9 Gastro-esophageal reflux disease without esophagitis; E03.9 Hypothyroidism, unspecified; G89.29 Other chronic pain; I11.0 Hypertensive heart disease with heart failure; I71.2 Thoracic aortic aneurysm, without rupture; R63.4 Abnormal weight loss; Z68.29 Body mass index [BMI] 29.0-29.9, adult
CPT/HCPCS: 36415; 71045-TC-FY; 74177-TC; 80053; 81003; 82550; 84484; 85025; 85610; 85651; 85730; 86140; 87040; 87086; 90686; 93005; 93010; 93971-TC; 97116-GP; 97161-GP; 99285-25; C9803; G0008; J0131; Q9967; U0003; U0005